=== PATIENT | female | born 1940 | race Caucasian/White ===

== ENCOUNTER 2017-12-02 08:02 | Emergency (ER) | payer OTHER ==
--- OUTSIDE RECORDS SUMMARY | 2017-12-02 08:05 | XMS REPORT | Clinical Summary ---
:1940 Author Organization [facility] Address [address] [place] [address] Care Team Providers Name Role Phone Asked, No Pcp Primary Care Provider Unavailable Allergies No Known Allergies Current Medications Prescription Sig. Disp. Refills Start Date End Date Status sertraline (ZOLOFT) Take 25 mg by 02/10/2017 Active 25 MG tablet mouth 2 (two) times a day. pramipexole (MIRAPEX) Take 1.5 mg by 04/27/2017 Active 1.5 MG tablet mouth daily. pantoprazole Take 40 mg by 03/27/2017 Active (PROTONIX) 40 MG EC mouth daily. tablet levothyroxine Take 75 mcg by Active (SYNTHROID, LEVOXYL) mouth daily. 75 mcg tablet lisinopril Take 10 mg by Active (PRINIVIL,ZESTRIL) 10 mouth daily. mg tablet memantine (NAMENDA) 5 Take 5 mg by 05/03/2017 Active MG tablet mouth daily. diazePAM (VALIUM) 10 Take 10 mg by 04/19/2017 Active MG tablet mouth daily. levothyroxine 04/13/2017 Active (SYNTHROID, LEVOXYL) 88 mcg tablet atorvastatin Take 1 tablet 90 tablet 3 11/30/2017 11/30/2018 Active (LIPITOR) 40 MG (40 mg total) tablet by mouth daily. clopidogrel (PLAVIX) Take 1 tablet 30 tablet 11 11/30/2017 11/30/2018 Active 75 mg tablet (75 mg total) by mouth daily. atorvastatin Take 1 tablet 30 tablet 3 05/18/2017 06/17/2017 (LIPITOR) 40 MG (40 mg total) tablet by mouth nightly for 30 days. aspirin (ECOTRIN) 81 Take 1 tablet 90 tablet 4 05/18/2017 06/17/2017 MG enteric coated (81 mg total) tablet by mouth daily for 30 days. clopidogrel (PLAVIX) Take 1 tablet 90 tablet 3 05/18/2017 06/17/2017 75 mg tablet (75 mg total) by mouth daily for 30 days. minocycline Take 1 capsule 14 capsule 0 05/18/2017 05/25/2017 (MINOCIN,DYNACIN) 100 (100 mg total) MG capsule by mouth every 12 (twelve) hours for 7 days. traMADol (ULTRAM) 50 Take 1 tablet 30 tablet 0 05/18/2017 06/17/2017 mg tablet (50 mg total) by mouth every 6 (six) hours as needed for moderate pain for up to 30 days. Active Problems Problem Noted Date Cardiac pacemaker in situ 06/07/2017 Overview: Increased RV capture threshold today: (concerning for RV lead dislodgement) Bipolar 3.25/ 0.4 Unipolar 3.0/ 0.4 Will obtain CXR today AV delay extended to 300ms to prevent V pace during RDR episodes > 900 rate drop response episodes Bradycardia 05/12/2017 Last Assessment & Plan: S/p dual chamber pacemaker implant (05/17/17) 940 Rate drop episodes that were treated appropriately Hypotension 05/12/2017 NSTEMI (non-ST elevated myocardial infarction) 05/11/2017 Essential hypertension 05/11/2017 Osteoporosis 05/11/2017 Congenital hypothyroidism without goiter 05/11/2017 Anxiety 05/11/2017 Chronic back pain 09/26/2016 Spondylosis of lumbar region without myelopathy or radiculopathy 04/13/2014 GERD (gastroesophageal reflux disease) 11/28/2013 Hypothyroidism 11/28/2013 Restless leg syndrome 11/28/2013 Back pain 11/27/2013 Leg pain, bilateral 11/27/2013 Scoliosis 11/27/2013 Encounters Date Type Specialty Care Team Description 11/30/2017 Orders Only Procedural Cardiology Jose Morris MD 06/11/2017 Office Visit Cardiology Delma Morris Paul Antonio, unspecified type (Primary Dx) 06/11/2017 Orders Only Cardiology Jose Morris MD 06/11/2017 Procedure Pass Procedural Cardiology 06/08/2017 Orders Only Cardiology Casey Willis (Primary Blanca Dx) TREY Hoover 06/07/2017 Hospital Radiology Ziggy Grider Essential Encounter MD Ajay hypertension 06/07/2017 Office Visit Cardiology Chaitanya Donovan, Essential hypertension ( Primary Dx); Maylin Hernandez NP Cardiac pacemaker in situ; Bradycardia 05/21/2017 Procedure Pass Procedural Cardiology 05/17/2017 Procedure Pass Procedural Cardiology 05/17/2017 Surgery Procedural Cardiology Debby Morris ppi generator lselie Magaña dual [54231 (CPT)] 05/15/2017 Procedure Pass Procedural Cardiology 05/15/2017 Surgery Procedural Cardiology Hayden Sousa Cv left heart cath samia Hedrick MD lv gram cors [39868 (CPT)] 05/11/2017 - Hospital Cardiovascular Hayden Sousa Bradycardia (Primary Dx); 05/18/2017 Encounter MD Ryley Hypotension, unspecified hypotension type; NSTEMI (non-ST elevated myocardial infarction) after 12/01/2016 Social History Tobacco Use Types Packs/Day Years Used Date Never Smoker Alcohol Use Drinks/Week oz/Week Comments No Sex Assigned at Date Recorded Not on file Last Filed Vital Signs Vital Sign Reading Time Taken Blood Pressure 188/84 06/11/2017 9:07 AM CDT Pulse 84 06/11/2017 9:07 AM CDT Temperature 36.2 C (97.2 F) 05/18/2017 11:06 AM CDT Respiratory Rate 16 06/07/2017 10:51 AM CDT Oxygen Saturation 97% 05/18/2017 11:06 AM CDT Inhaled Oxygen Concentration - - Weight 57.6 kg (127 lb) 06/11/2017 9:07 AM CDT Height 154.9 cm (5' 1") 06/11/2017 9:07 AM CDT Body Mass Index 24 06/11/2017 9:07 AM CDT Plan of Treatment Health Maintenance Due Date Last Done Comments ZOSTER VACCINE 1999 PNEUMOCOCCAL POLYSACCHARIDE VACCINE AGE 65 AND OVER 2004 PNEUMOCOCCAL-13 2004 INFLUENZA VACCINE 04/10/2017 Implants Implanted Type Area Serials Librarian Device Expiration Model / Identifier Date Serial / Lot Pacemaker Salesperson Burial Needs Dr Fenton 2chmbr W/ Is-1 Uni/Bi Conn Advisa - [id number] - [id number] Cardiac N/A: [employer] 10/07/2018 [id number] / Implanted: Qty: 1 on 05/17/2017 by Jose Morris MD Pacemaker N/A CARDIAC RHYTHM [id number] / Generators DISEASE MGMT [id number] Lead, Pacemaker Atrial And Ventricular 58 Centimeter Capsure Fix Novus System - [id number] - [id number] Cardiac Pacing N/A: [employer]ONIC [facility] 01/18/2019 [id number] / Implanted: Qty: 1 on 05/17/2017 by Jose Morris MD Leads or N/A [employer] [id number] / Electrodes or [id number] Accessories Lead, Pacemaker Bipolar Fix Forming Atrial And Ventricular Steroid Eluting 52 Centimeter Capsure Fix Novus - [id number] - [id number] Cardiac Pacing N/A: [employer] [facility] 02/13/2019 [id number] / Implanted: Qty: 1 on 05/17/2017 by Jose Morris MD Leads or N/A [employer] [id number] / Electrodes or [id number] Accessories Procedures Procedure Name Priority Date/Time Associated Comments Diagnosis CV PACEMAKER DEFIB ILR Routine 06/11/2017 12:00 INTERROGATION AM CDT EP PPI GENERATOR INSERT Routine 05/17/2017 3:06 Results for this DUAL PM CDT procedure are in the results section. CV LEFT HEART CATH LV Routine 05/15/2017 5:52 Results for this GRAM WITH CORS PM CDT procedure are in the results section. GA INSERT NON-TUNNEL CV Routine 05/12/2017 2:34 Bradycardia Results for this CATH AM CDT Hypotension, procedure are in unspecified the results hypotension type section. NSTEMI (non-ST elevated myocardial infarction) ECHOCARDIOGRAM 2D STAT 05/11/2017 8:59 Results for this LIMITED PM CDT procedure are in the results section. after 12/01/2016 Results ECG 12 lead (06/11/2017 9:17 AM)Only the most recent of4 resultswithin the time period is included. Component Value Ref Range Ventricular rate 89 Atrial rate 89 GA interval 218 QRSD interval 90 QT interval 386 QTC interval 469 P axis 1 46 QRS axis 1 54 T wave axis 6 EKG impression Electronic atrial pacemaker-In automated comparison with ECG of 07-JUN-2017 10:01,-Electronic atrial pacemaker has replaced Electronic ventricular pacemaker- Specimen Performing Laboratory [facility] [address] [place] [address] CV pacemaker defib or ilr interrogation (06/11/2017)XR Chest 2 Vw (06/07/2017 12 :23 PM) Specimen Performing Laboratory [facility] [address] [place] [address] Narrative EXAMINATION:XR CHEST 2 VW CLINICAL HISTORY:I10 Essential (primary) hypertension, s p dual chamber pacemakerevaluate lead placement IMPRESSION: There is a transvenous pacemaker in good position. Heart and mediastinum are normal. Lungs are clear. There is a severe thoracolumbar scoliosis. [id number] Procedure Note Interface, Radiology Results Incoming - 06/07/2017 1:16 PM CDT EXAMINATION: XR CHEST 2 VW CLINICAL HISTORY: I10 Essential (primary) hypertension, s p dual chamber pacemaker evaluate lead placement IMPRESSION: There is a transvenous pacemaker in good position. Heart and mediastinum are normal. Lungs are clear. There is a severe thoracolumbar scoliosis. [id number] XR Chest 1 Vw Portable (05/18/2017 11:10 AM)Only the most recent of2 resultswithin the time period is included. Specimen Per[facility] [address] [place] [address] Narrative EXAMINATION:XR CHEST 1 VW PORTABLE CLINICAL HISTORY:Post device placement COMPARISON:05/12/2017 chest IMPRESSION: Placement left subclavian transvenous pacer device. Pacer leads over the right atrium and right ventricle. Cardiac silhouette top normal size. Mild central vascular prominence. Minimal linear atelectasis right base No pneumothorax. No pleural effusion [id number] Procedure Note Interface, Radiology Results Incoming - 05/18/2017 12:22 PM CDT EXAMINATION: XR CHEST 1 VW PORTABLE CLINICAL HISTORY: Post device placement COMPARISON: 05/12/2017 chest IMPRESSION: Placement left subclavian transvenous pacer device. Pacer leads over the right atrium and right ventricle. Cardiac silhouette top normal size. Mild central vascular prominence. Minimal linear atelectasis right base No pneumothorax. No pleural effusion [id number] Estimated GFR (05/18/2017 5:10 AM)Only the most recent of8 resultswithin the time period is included. Component Value Ref Range GFR Non Af Amer 81 mL/min/1.73 m2 GFR Af Amer >90 mL/min/1.73 m2 Comment: Chronic kidney disease: <60 mL/min/1.73m2 Kidney failure: <15 mL/min/1.73m2 The estimated GFR is calculated from the IDMS-traceable Modification of Diet in Renal Disease Equation. The accuracy of the calculation is poor when the creatinine is normal. Calculated values >90 mL/min/1.73m2 are not reported. This equation has not been validated in children (<18 years), women, the elderly (>70 years), or ethnic groups other than Caucasians and Americans. Specimen Performing Laboratory Plasma specimen [facility] DEPARTMENT OF PATHOLOGY AND GENOMIC MEDICINE [address] [place] [address] Prothrombin time with INR (05/18/2017 5:10 AM)Only the most recent of3 resultswithin the time period is included. Component Value Ref Range Prothrombin time 13.4 12.0 - 15.0 sec INR 1.0 Comment: The International Normalized Ratio (INR) is a therapeutic monitoring tool for patients who are stable on oral anticoagulant therapy. An INR of 2.0-3.0 is suggested for deep vein thrombosis/pulmonary embolism. Specimen Performing Laboratory Blood [facility] DEPARTMENT OF PATHOLOGY AND GENOMIC MEDICINE [address] [place] [address] CBC with platelet and differential (05/18/2017 5:10 AM)Only the most recent of3 resultswithin the time period is included. Component Value Ref Range WBC 9.20 4.50 - 11.00 k/uL RBC 3.70 (L) 4.20 - 5.50 m/uL HGB 10.9 (L) 12.0 - 16.0 g/dL HCT 35.2 (L) 37.0 - 47.0 % MCV 95.1 82.0 - 100.0 fL MCH 29.5 27.0 - 34.0 pg MCHC 31.0 31.0 - 37.0 g/dL RDW - SD 47.7 37.0 - 55.0 fL MPV 9.8 8.8 - 13.2 fL Platelet count 227 150 - 400 k/uL Nucleated RBC 0.00 /100 WBC Neutrophils 64.0 39.0 - 69.0 % Lymphocytes 28.6 25.0 - 45.0 % Monocytes 5.0 0.0 - 10.0 % Eosinophils 1.7 0.0 - 5.0 % Basophils 0.3 0.0 - 1.0 % Immature granulocytes 0.4Comment: "Immature granulocytes" 0.0 - 1.0 % (promyelocytes, myelocytes, metamyelocytes) Specimen Performing Laboratory Blood [facility] DEPARTMENT OF PATHOLOGY AND [facility] [address] [place] [address] Basic metabolic panel (05/18/2017 5:10 AM)Only the most recent of8 resultswithin the time period is included. Component Value Ref Range Sodium 142 135 - 148 mEq/L Potassium 3.9 3.5 - 5.0 mEq/L Chloride 107 98 - 112 mEq/L CO2 22 (L) 24 - 31 mEq/L Anion gap 13 7 - 15 mEq/L Comment: Starting from December , anion gap calculation no longer incorporates potassium. Please note the change. BUN 22 8 - 23 mg/dL Creatinine 0.7 0.5 - 0.9 mg/dL Glucose 115 (H) 65 - 99 mg/dL Calcium 9.0 8.8 - 10.2 mg/dL Specimen Performing Laboratory Plasma specimen [facility] DEPARTMENT OF PATHOLOGY AND [address] [address] Cv electrophysiology procedure (05/17/2017 3:06 PM) Specimen Performing Laboratory [address] [address] Narrative ELECTROPHYSIOLOGY SERVICE OPERATIVE REPORT PROCEDURE: OPERATION PERFORMED: Implantation dual chamber pacemaker Moderate sedation for 80 min ATTENDING SURGEON: Jose Morris MD CCEP FELLOW: None ANESTHESIA: Versed, lidocaine and fentanyl ESTIMATED BLOOD LOSS: < 20 cc COMPLICATIONS: None. TIME OUT: Time out was completed with verification of the correct patient identity, procedure to be performed, procedure site and implanted equipment. INDICATION FOR PROCEDURE:Briefly, the patient is a 77 year old male with a history of Syncope, SSS and documented symptomatic bradycardia.The patient was seen and examined by an electrophysiology staff physician and deemed appropriate for implantation of a permanent pacemaker. PROCEDURE AND FINDINGS:The patient was brought to the electrophysiology laboratory at the [facility].Informed consent was given by the patient prior to the procedure and confirmed.Intravenous prophylactic antibiotics were administered prior to the procedure.After the site of implantation was prepped and drapped in the usual sterile fashion and after adequate anesthesia was given, the skin was infiltrated with 1% lidocaine and 1% bupivicaine 50/50 mixture.The skin was incised with a #10 scalpel.Blunt and electrosurgical dissection was carried out to the level of the prepectoral fascia with careful attention paid to hemostasis.A pocket to house the pulse generator was formed between the prepectoral fascia and subcutaneous fat with blunt and electrosurgical dissection.The pocket was copiously irrigated with antibiotic containing normal saline and subsequently observed.Once adequate hemostasis was confirmed within the pocket, venous access was obtained.The cephalic vein was access with cut down technique.J tip 0.035 inch guide wires were introduced and their course throught the venous system was confirmed by their presence under fluoroscopy in the inferior vena. RIGHT VENTRICULAR LEAD: A7 Martiniquais peel away sheath was brought to the field and placed into the venous system via over the wire technique.The right ventricular lead was placed via this sheath into the right ventricular apical location. Adequate sensing and threshold parameters were obtained.The lead was attached via active fixation.There was no evidence of diaphragmatic stimulation at 10 V output.The peel away sheath was removed and the lead collar was advanced to the pectoral muscle and sutured with ethabond suture.Tug testing of this lead confirmed stability of the lead and the length of the lead's slack was assesed as optimal with fluoroscopy. RIGHT ATRIAL LEAD: A 7 Martiniquais peel away sheath was brought to the field and placed into the venous system via over the wire technique.The right atrial lead was placed via this sheath into the right atrial lateral location.Adequate sensing and threshold parameters were obtained.The lead was attached via activation fixation.There was no evidence of diaphragmatic stimulation at 10 V output.The peel away sheath was removed and the lead collar was advanced to the pectoral muscle and sutured with ethabond suture.Tug testing of this lead confirmed stability of the lead and the length of the lead's slack was assesed as optimal with fluoroscopy. The lead tips for all leads were cleaned and dried thoroughly.The leads were attached to the appropriate ports on the pulse generator.Tug testing was perfomed on all connections.The device and leads were placed within the pocket such that the coiled redundant leads were posterior to the pulse generator. The pulse generator was then sutured to the fascia in a medial location within the pocket using Vycril suture.The pocket was closed with 3 layers of continuous suture using 2 Vicryl, 3 Vicryl and Dermabond. Sterile dressing were applied to the wound followed by a pressure dressing. MEASURED DEVICE DATA: Atrial lead sensin mV impedance: 647 Ohms Threshold: 0.6 Volts at 0.5 ms RV lead sensin.5 mV pacing impedance: 978 Ohms Threshold: 0.5 Volts at 0.5 ms PROGRAMMED PARAMETERS: Mode:DDDR CONCLUSION:Succesful implantation of permanent pacemaker system. RECOMMENDATION: 1. No need for CXR 2. ANTIBIOTICS 3. Wound Check in one week at the [facility]. 4. Compression bandage to be removed in AM by our service.Patient to be instructed not to touch the wound or get wound wet for the period of one week.Patient instructed not to flex, extend, or abduct the shoulder joint ipsilateral to implantation more than 90 degrees for a period of 6 weeks.Movement of the shoulder below this threshold is encouraged. CBC hemogram (05/17/2017 5:15 AM)Only the most recent of5 resultswithin the time period is included. Component Value Ref Range WBC 7.68 4.50 - 11.00 k/uL RBC 3.89 (L) 4.20 - 5.50 m/uL HGB 11.6 (L) 12.0 - 16.0 g/dL HCT 36.6 (L) 37.0 - 47.0 % MCV 94.1 82.0 - 100.0 fL MCH 29.8 27.0 - 34.0 pg MCHC 31.7 31.0 - 37.0 g/dL RDW - SD 46.0 37.0 - 55.0 fL MPV 9.7 8.8 - 13.2 fL Platelet count 243 150 - 400 k/uL Nucleated RBC 0.00 /100 WBC Specimen Performing Laboratory Blood [facility] DEPARTMENT OF PATHOLOGY AND GENOMIC MEDICINE [address] [place] [address] Partial thromboplastin time, activated (05/16/2017 5:00 AM)Only the most recent of10 resultswithin the time period is included. Component Value Ref Range PTT 25.2 23.0 - 36.0 sec Comment: PTT therapeutic range for unfractionated heparin is 61.0-112.0 seconds which corresponds to Anti-Xa 0.3-0.7 U/ml. Specimen Performing Laboratory Blood [facility] DEPARTMENT OF PATHOLOGY AND GENOMIC MEDICINE [address] [place] [address] Thyroid stimulating hormone (05/16/2017 4:00 AM) Component Value Ref Range TSH 1.56 0.27 - 4.20 uIU/mL Specimen Performing Laboratory Plasma specimen [facility] DEPARTMENT OF PATHOLOGY AND [facility] [address] [place] [address] Cv biology laboratory assistant procedure (05/15/2017 5:52 PM) Component Value Ref Range Cath EF Estimated 60 % Specimen Performing Laboratory [facility] [address] [place] [address] Narrative 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 Phosphorus level (05/15/2017 4:50 AM)Only the most recent of5 resultswithin the time period is included. Component Value Ref Range Phosphorus 4.5 2.4 - 4.5 mg/dL Specimen Performing Laboratory Plasma specimen [facility] DEPARTMENT PATHOLOGY [address] [address] Magnesium level (05/15/2017 4:50 AM)Only the most recent of6 resultswithin the time period is included. Component Value Ref Range Magnesium 2.4 1.6 - 2.4 mg/dL Specimen Performing Laboratory Plasma specimen [facility] DEPARTMENT OF PATHOLOGY AND [facility] [address] [place] [address] Ionized calcium (05/15/2017 4:50 AM)Only the most recent of4 resultswithin the time period is included. Component Value Ref Range pH 7.53 Ionized calcium 1.14 1.11 - 1.32 mmol/L Specimen Performing Laboratory Plasma specimen [facility] DEPARTMENT OF PATHOLOGY [address] [address] Potassium level (05/14/2017 12:40 PM) Component Value Ref Range Potassium 3.7 3.5 - 5.0 mEq/L Specimen Performing Laboratory Plasma specimen [facility] DEPARTMENT OF PATHOLOGY AND GENOMIC MEDICINE [address] [place] [address] POC glucose (05/14/2017 12:06 PM)Only the most recent of17 resultswithin the time period is included. Component Value Ref Range POC glucose 107 (H) 65 - 99 mg/dL Comment: [facility] Notified RN Meter ID: [id number] Logistics Manager: Linda Chapman Specimen Performing Laboratory [facility] DEPARTMENT OF PATHOLOGY AND [facility] [address] [place] [address] Troponin (05/13/2017 12:16 AM)Only the most recent of5 resultswithin the time period is included. Component Value Ref Range Troponin <0.30 0.00 - 0.30 ng/mL Comment: 0.30 - 1.49 ng/mlMay indicate increased risk of acute coronary syndrome. >=1.5 ng/mlConsistent with acute myocardial infarction. The diagnostic value of a single normal or non-diagnostic result is questionable.Serial samples at 2-6 hour intervals are required to rule out acute myocardial injury. Specimen Performing Laboratory Plasma specimen [facility] DEPARTMENT OF PATHOLOGY AND GENOMIC MEDICINE [address] [place] [address] Pv duplex venous lower extremity (05/12/2017 7:50 PM) Specimen Performing Laboratory [facility] [address] [place] [address] Narrative Vascular Ultrasound Laboratory Lower Extremity Venous Report [address] [place] [address] Pat.Name:JOAN ABRAMS.ID:[id number] St.Date: 05/12/2017Refer.MD:HAYDEN SOUSA MD Exam Time: 7:32:00 PMStudy Type:LE Venous DOBAge:1940,77YSex: FEMALE Sonogrphr: Savage Mclena RVTPat. Stat.:Inpatient [facility]INDA, CPT - 4: 18330 Echo Event ID:[id number] Order ID:[id number] Reason for Study:NSTEMI History / Clinical:Other,NSTEMI Race: SUMMARY: DUPLEX SCAN OBSERVATIONS Deep VeinsSuperficial Veins RightLeft RightLeft EIV GSV (prox) Not VisualizedNormal CFV Normal Normal (above knee) Femoral Normal Normal GSV (dist) Normal Normal Profunda Normal Normal (below knee) Popliteal Normal Normal PT (prox) Normal NormalSSV Not Visualized Not Visualized PT (dist) Normal Normal Peroneal Normal Normal RIGHT: There is normal compressibility with no evidence of echogenic material noted within the lumen of the visualized veins. Colorflow and Doppler signals are normal. LEFT:There is normal compressibility with no evidence of echogenic material noted within the lumen of the visualized veins. Colorflow and Doppler signals are normal. PRELIMINARY FINDINGS 1.No evidence of deep venous thrombosis in either lower extremity. PHYSICIAN INTERPRETATION Venous examination of the both lower extremities demonstrated no evidence of venous thrombosis in the visualized veins. Signed 05/13/2017 01:44 AM Meño Duenas MD, RPVI Procedure Note Interface, Radiology Results In - 05/13/2017 1:44 AM CDT Vascular Ultrasound Laboratory Lower Extremity Venous Report [address] [place] [address] Pat.Name: JOAN ABRAMS.ID: [id number] St.Date: 05/12/2017 Refer.MD: HAYDEN SOUSA MD Exam Time: 7:32:00 PM Study Type:LE Venous Age: 8 1940,77Y Sex: FEMALE Sonogrphr: Savage Mclean RVT Pat. Stat.:Inpatient Room: [address] Vol: CN, CPT - 4: 958[address] Echo Event ID:[id number] Order ID: [id number] Reason for Study:NSTEMI History / Clinical:Other, NSTEMI Race: SUMMARY: DUPLEX SCAN OBSERVATIONS Deep Veins Superficial Veins Right Left Right Left EIV GSV (prox) Not Visualized Normal CFV Normal Normal (above knee) Femoral Normal Normal GSV (dist) Normal Normal Profunda Normal Normal (below knee) Popliteal Normal Normal PT (prox) Normal Normal SSV Not Visualized Not Visualized PT (dist) Normal Normal Peroneal Normal Normal RIGHT: There is normal compressibility with no evidence of echogenic material noted within the lumen of the visualized veins. Colorflow and Doppler signals are normal. LEFT: There is normal compressibility with no evidence of echogenic material noted within the lumen of the visualized veins. Colorflow and Doppler signals are normal. PRELIMINARY FINDINGS 1. No evidence of deep venous thrombosis in either lower extremity. PHYSICIAN INTERPRETATION Venous examination of the both lower extremities demonstrated no evidence of venous thrombosis in the visualized veins. Signed 05/13/2017 01:44 AM Meño Duenas MD, RPVI Anti Xa, low molecular weight (05/12/2017 12:51 PM) Component Value Ref Range Heparin name Lovenox Anti Xa, low molecular weight 0.92 0.60 - 1.00 U/mL Comment: Specimen must be drawn at least 4 hours post dose following a minimum of 3 doses. Therapeutic Range:0.60 - 1.00 U/mL Specimen Performing Laboratory Blood [facility] DEPARTMENT OF PATHOLOGY AND GENOMIC MEDICINE [address] [place] [address] CENTRAL LINE (05/12/2017 2:34 AM) Narrative LILIA Menjivar 05/12/20172:34 AM Central Line Insertion Performed by: BIJAN VOGT Authorized by: BIJAN VOGT Consent: Consent obtained:Verbal and emergent situation Consent given by:Patient and parent Risks discussed:Arterial puncture, incorrect placement, bleeding and infection Alternatives discussed:Delayed treatment and referral [place] protocol: Procedure explained and questions answered to patient or proxy's satisfaction: yes Relevant documents present and verified: yes Test results available and properly labeled: yes Imaging studies available: yes Required blood products, implants, devices, and special equipment available: yes Site/side marked: yes Immediately prior to procedure, a time out was called: yes Patient identity confirmed:Arm band Pre-procedure details: Hand hygiene: Hand hygiene performed prior to insertion Sterile barrier technique: All elements of maximal sterile technique followed Skin preparation:2% chlorhexidine and ChloraPrep Skin preparation agent: Skin preparation agent completely dried prior to procedure Anesthesia (see MAR for exact dosages): Anesthesia method:Local infiltration Local anesthetic:Lidocaine 1% w/o epi Procedure details: Catheter type:Triple lumen Catheter size:5.5 Fr Catheter site: femoral vein Catheter Site Laterality:Right Patient position:Flat Landmarks identified: yes Ultrasound guidance: yes Sterile ultrasound techniques: Sterile gel and sterile probe covers were used Number of attempts:1 Successful placement: yes Post-procedure details: Post-procedure:Line sutured and dressing applied Assessment:Blood return through all ports and free fluid flow Patient tolerance of procedure:Tolerated well, no immediate complications Comments: Triple lumen placed emergently for symptomatic Bradycardia and unresponsiveness needing IV access for dopamine infusion and IV fluid administration Insert arterial line (05/12/2017 2:29 AM) Narrative LILIA Menjivar 05/12/20172:29 AM Arterial Line Insertion Date/Time: 05/12/2017 2:25 AM Performed by: BIJAN VOGT Authorized by: BIJAN VOGT Consent: Consent obtained:Verbal Consent given by:Patient Risks discussed:Ischemia, bleeding, pain and repeat procedure Indications: Indications: hemodynamic monitoring and multiple ABGs Pre-procedure details: Skin preparation:2% Chlorhexidine Preparation: Patient was prepped and draped in sterile fashion Anesthesia (see MAR for exact dosages): Anesthesia method:Local infiltration Local anesthetic:Lidocaine 1% w/o epi Procedure details: Location:R femoral Kailash's test performed: no Needle gauge:20 G Placement technique:Ultrasound guided Number of attempts:1 Transducer: waveform confirmed Post-procedure details: Post-procedure:Sutured and sterile dressing applied CMS:Unchanged Patient tolerance of procedure:Tolerated well, no immediate complications Comments: A-line placed emergently after patient went Bradycardic, Hypotensive and Unresponsive Pv carotid duplex (05/11/2017 9:23 PM) Specimen Performing Laboratory [facility] [address] Vascular Ultrasound Laboratory Carotid Artery Duplex Report [address] [place] [address] For quality rep purposes, the categorization of the degree of the stenosis of this exam is based on criteria described in the IAC carotid stenosis grading white paper( www.intersocietal.org/Vascular) and Anais Shaikh., Ant Gomez, et al. Carotid artery stenosis: rogers-scale and Doppler US diagnosis--Society of Radiologists in Ultrasound Consensus Conference. Radiology. 2003 Nov; 229(2):340-6. Pat.Name:JOAN ABRAMS Pat.ID:[id number] .Date: 05/11/2017Refer.MD:HAYDEN SOUSA MD Exam Time: 9:00:00 PMStudy Type:Carotid DOBAge:1940,77YSex: FEMALE Sonogrphr: COSTA Shepherd RCS Pat. Stat.:Inpatient Room:[facility] [id number] TapeVol: ACACIA, CPT - 4: 49090 Echo Event ID:[id number] Order ID:[id number] Reason for Study:Evaluate for carotid artery disease. NSTEMI, history of HTN, osteoporosis, hypothyroidism and anxiety. Race:C SUMMARY: PHYSICAL ASSESSMENT BloodPulsesCarotid Pressure Carotid TemporalBruit Right 133/61 ++0 Left ___ ++0 CAROTID ARTERY SCAN RIGHT:There is smooth intimal lining in the common carotid artery. There is calcified plaque noted in the bulb. Colorflow is normal. The internal and external carotid artery is clear. There is antegrade flow noted in the vertebral artery. LEFT:There is smooth intimal lining in the common carotid ,bulb, internal and external carotid artery. Colorflow is normal. There is antegrade flow noted in the vertebral artery. PRELIMINARY FINDINGS 1. <50%stenosis in the bulb and right internal carotid artery. 2. Left carotid artery examination demonstrates no evidence of plaque or occlusive disease. 3. There is antegrade flow noted in the vertebral artery, bilaterally. PHYSICIAN INTERPRETATION Bilateral carotid duplex examination demonstrated atherosclerotic plaques in the right bulb. Less than 50% stenosis in the right internal carotid artery. Left side is normal. Carotid Findings:RightLeft Verteb.Flw AntegradeAntegrade Subclavian Biphasic Biphasic MEASUREMENTS: DOPPLER Right CCA Dist CCA Dist PSV59.9 cm/sCCA Dist EDV7.55 cm/s Right CCA Mid CCA Mid PSV 81.7 cm/sCCA Mid EDV 11.3 cm/s Right CCA Prox CCA Prox PSV 108 cm/sCCA Prox EDV 4.2 cm/s Right ECA ECA PSV 95.2 cm/sECA EDV0 cm/s Right ICA Dist ICA Dist PSV79.5 cm/Delio Dist EDV20.1 cm/s Right ICA Mid ICA Mid PSV 70.7 cm/Delio Mid EDV 20.1 cm/s Right ICA Prox ICA Prox PSV67.4 cm/Delio Prox EDV8.02 cm/s Right Vertebral Vertebral PSV 50.9 cm/sVertebral EDV 12.4 cm/s Right Subclavian Subclavian PSV76.4 cm/sSubclavian EDV 0 cm/s Left CCA Dist CCA Dist PSV62.2 cm/sCCA Dist EDV15.1 cm/s Left CCA Mid CCA Mid PSV 67.7 cm/sCCA Mid EDV 9.45 cm/s Left CCA Prox CCA Prox PSV84.2 cm/sCCA Prox EDV9.45 cm/s Left ECA ECA PSV 72.1 cm/sECA EDV 1.76 cm/s Left ICA Dist ICA Dist PSV65.5 cm/Delio Dist EDV18.2 cm/s Left ICA Mid ICA Mid PSV 74.3 cm/Delio Mid EDV 18.2 cm/s Left ICA Prox ICA Prox PSV62.2 cm/Delio Prox EDV19.3 cm/s Left Vertebral Vertebral PSV 43.1 cm/sVertebral EDV 8.97 cm/s Left Subclavian Subclavian PSV 127 cm/sSubclavian EDV 0 cm/s Right ICA/CCA Ratio ICA/CCA PSV0.825 Left ICA/CCA Ratio ICA/CCA PSV0.919 Signed 05/12/2017 04:27 AM Meño Duenas MD, RPVI Procedure Note Interface, Radiology Results In - 05/12/2017 4:28 AM CDT Vascular Ultrasound Laboratory Carotid Artery Duplex Report [address] [place] [address] For quality rep purposes, the categorization of the degree of the stenosis of this exam is based on criteria described in the IAC carotid stenosis grading white paper( www.intersocietal.org/Vascular) and Anais Shaikh., Jason CDevikaB., et al. Carotid artery stenosis: rogers-scale and Doppler US diagnosis--Society of Radiologists in Ultrasound Consensus Conference. Radiology. 2003 Nov; 229(2):340-6. Pat.Name: JOAN ABRAMS.ID: [id number] .Date: 05/11/2017 Refer.MD: HAYDEN SOUSA MD Exam Time: 9:00:00 PM Study Type:Carotid Age: 8 1940,77Y Sex: FEMALE Sonogrphr: Saul Sanchez, COSTA, CHRIS Pat. Stat.:Inpatient Room: [facility] [id number] Tape Vol: ACACIA, [facility] - 4: 63772 Echo Event ID:[id number] Order ID: [id number] Reason for Study:Evaluate for carotid artery disease. NSTEMI, history of HTN, osteoporosis, hypothyroidism and anxiety. Race: C SUMMARY: PHYSICAL ASSESSMENT Blood Pulses Carotid Pressure Carotid Temporal Bruit Right 133/61 + + 0 Left ___ + + 0 CAROTID ARTERY SCAN RIGHT: There is smooth intimal lining in the common carotid artery. There is calcified plaque noted in the bulb. Colorflow is normal. The internal and external carotid artery is clear. There is antegrade flow noted in the vertebral artery. LEFT: There is smooth intimal lining in the common carotid ,bulb, internal and external carotid artery. Colorflow is normal. There is antegrade flow noted in the vertebral artery. PRELIMINARY FINDINGS 1. <50% stenosis in the bulb and right internal carotid artery. 2. Left carotid artery examination demonstrates no evidence of plaque or occlusive disease. 3. There is antegrade flow noted in the vertebral artery, bilaterally. PHYSICIAN INTERPRETATION Bilateral carotid duplex examination demonstrated atherosclerotic plaques in the right bulb. Less than 50% stenosis in the right internal carotid artery. Left side is normal. Carotid Findings: Right Left Verteb.Flw Antegrade Antegrade Subclavian Biphasic Biphasic MEASUREMENTS: DOPPLER Right CCA Dist CCA Dist PSV 59.9 cm/s CCA Dist EDV 7.55 cm/s Right CCA Mid CCA Mid PSV 81.7 cm/s CCA Mid EDV 11.3 cm/s Right CCA Prox CCA Prox PSV 108 cm/s CCA Prox EDV 4.2 cm/s Right ECA ECA PSV 95.2 cm/s ECA EDV 0 cm/s Right ICA Dist ICA Dist PSV 79.5 cm/s ICA Dist EDV 20.1 cm/s Right ICA Mid ICA Mid PSV 70.7 cm/s ICA Mid EDV 20.1 cm/s Right ICA Prox ICA Prox PSV 67.4 cm/s ICA Prox EDV 8.02 cm/s Right Vertebral Vertebral PSV 50.9 cm/s Vertebral EDV 12.4 cm/s Right Subclavian Subclavian PSV 76.4 cm/s Subclavian EDV 0 cm/s Left CCA Dist CCA Dist PSV 62.2 cm/s CCA Dist EDV 15.1 cm/s Left CCA Mid CCA Mid PSV 67.7 cm/s CCA Mid EDV 9.45 cm/s Left CCA Prox CCA Prox PSV 84.2 cm/s CCA Prox EDV 9.45 cm/s Left ECA ECA PSV 72.1 cm/s ECA EDV 1.76 cm/s Left ICA Dist ICA Dist PSV 65.5 cm/s ICA Dist EDV 18.2 cm/s Left ICA Mid ICA Mid PSV 74.3 cm/s ICA Mid EDV 18.2 cm/s Left ICA Prox ICA Prox PSV 62.2 cm/s ICA Prox EDV 19.3 cm/s Left Vertebral Vertebral PSV 43.1 cm/s Vertebral EDV 8.97 cm/s Left Subclavian Subclavian PSV 127 cm/s Subclavian EDV 0 cm/s Right ICA/CCA Ratio ICA/CCA PSV 0.825 Left ICA/CCA Ratio ICA/CCA PSV 0.919 Signed 05/12/2017 04:27 AM Meño Duenas MD, RPVI Echocardiogram 2d limited (05/11/2017 8:59 PM) Specimen Performing Laboratory [facility] [address] [place] [address] Narrative Echocardiography Report [address]Name:JOAN ABRAMS Pat.ID:[id number] .Date: 05/11/2017Refer.MD:HAYDEN SOUSA MD Exam Time: 8:38:00 PMStudy Type:Routine Echo Height:60inWeight:121lb BSA: 1.51 m2 DOBAge:1940,77Y Sex: FEMALEBP:114/59 HR:57 bpmSonogrphr: Marlee Perez, RCS, RVS Pat. Stat.:Inpatient Room:[place] [address] CPT - 4: 68408, [id number] Status:Final Echo Event ID:[id number] Order ID:[id number] Reason for Study:Myocardial Ischemia/Infarction - Eval of a patient without chest pain but with other features of an ischemic equivalent or laboratory markers indicative of ongoing NM. Procedures:2D Echo, Colorflow Doppler, Strain, Portable Race:C FINDINGS: LV: LV size is normal. There is mild concentric LV hypertrophy. LVglobal systolic function is normal. Difficult to assess segmentalfunction. Basal and mid segments are hyperdynamic.Newberg is not well visualized and cannot excludeapical pathology.Estimated EF is 65-69% RV: RV size is normal. RV systolic function is normal. LA: LA volume is difficult to assess. RA: RA size is normal. AO: Aortic root diameter is upper limits of normal in size. SASCHA: No pericardial effusion. AV: No structural AV abnormalities noted. MV: Mild mitral annular calcification. There is Valvular systolicanterior motion of the mitral valve. Mild mitral regurgitation. PV: Pulmonic valve not well seen. TV: No structural TV abnormalities noted. Mild tricuspid regurgitation LVOT: Left ventricular outflow tract dynamic obstruction. Estimatedmaximal gradient is 19-26 mmHg. Adam: Diastolic dysfunction Grade I (Mild): Impaired relaxation withnormal LV filling pressures. Other:Estimated PA systolic pressure is 26 mmHg, assuming a mean RAPof 5 mmHg. MEASUREMENTS: 2D Parasternal [place] LVIDd3.9 cmIndex 2.6 cm/m Ao Rtd 2.8 cm Index1.9 cm/m LVIDs2.6 cmLV Ekpe619.3 g(87-129) LV%fs 33.3 % LVM Index 105.5 g/m2 IVSd 1.2 cmRWT0.6 LVPWd1.2 cm Signed 05/12/2017 08:40 PM Germain Aranda M.D. Procedure Note Interface, Radiology Results In - 05/12/2017 8:40 PM CDT Echocardiography Report [address] [place] [address] Pat.Name: JOAN ABRAMS.ID: [id number] St.Date: 05/11/2017 Refer.MD: HAYDEN SOUSA MD Exam Time: 8:38:00 PM Study Type:Routine Echo Height: 60in Weight: 121lb BSA: 1.51 m2 Age: 8 1940,77Y Sex: FEMALE BP: 114/59 HR: 57 bpm Sonogrphr: CHRIS Santana, COSTA Pat. Stat.:Inpatient Room: [place] [address] CPT - 4: 24539, 04509 Study Status:Final Echo Event ID:[id number] Order ID: [id number] Reason for Study:Myocardial Ischemia/Infarction - Eval of a patient without chest pain but with other features of an ischemic equivalent or laboratory markers indicative of ongoing NM. Procedures:2D Echo, Colorflow Doppler, Strain, Portable Race: C FINDINGS: LV: LV size is normal. There is mild concentric LV hypertrophy. LV global systolic function is normal. Difficult to assess segmental function. Basal and mid segments are hyperdynamic. Newberg is not well visualized and cannot exclude apical pathology. Estimated EF is 65-69% RV: RV size is normal. RV systolic function is normal. LA: LA volume is difficult to assess. RA: RA size is normal. AO: Aortic root diameter is upper limits of normal in size. SASCHA: No pericardial effusion. AV: No structural AV abnormalities noted. MV: Mild mitral annular calcification. There is Valvular systolic anterior motion of the mitral valve. Mild mitral regurgitation. PV: Pulmonic valve not well seen. TV: No structural TV abnormalities noted. Mild tricuspid regurgitation LVOT: Left ventricular outflow tract dynamic obstruction. Estimated maximal gradient is 19-26 mmHg. Adam: Diastolic dysfunction Grade I (Mild): Impaired relaxation with normal LV filling pressures. Other: Estimated PA systolic pressure is 26 mmHg, assuming a mean RAP of 5 mmHg. MEASUREMENTS: 2D Parasternal [place] LVIDd 3.9 cm Index 2.6 cm/m Ao Rtd 2.8 cm Index 1.9 cm/m LVIDs 2.6 cm LV Mass 159.3 g (87-129) LV%fs 33.3 % LVM Index 105.5 g/m2 IVSd 1.2 cm RWT 0.6 LVPWd 1.2 cm Signed 05/12/2017 08:40 PM Germain Aranda M.D. Type and screen (05/11/2017 8:00 PM) Component Value Ref Range ABO grouping A Rh type POS Antibody screen (gel) NEG Specimen Performing Laboratory Blood [facility] DEPARTMENT OF PATHOLOGY AND GENOMIC MEDICINE [address] [place] [address] B natriuretic peptide (05/11/2017 8:00 PM) Component Value Ref Range BNP 58 0 - 100 pg/mL Specimen Performing Laboratory Blood [facility] DEPARTMENT OF PATHOLOGY AND GENOMIC MEDICINE [address] [place] [id number] after 12/01/2016 Insurance Payer Benefit Plan / Group Subscriber ID Type Phone Address [employer] MED[employer]ARE A[employer]NA MEDICARE HMO/PPO [facility] xxxxxxxx HMO [phone] [place] [address]
[2017-12-02 08:32] LABS: Absolute Lymphocytes (CBC) 7.1 K/uL (0.7-4.9); Absolute Monocytes 0.8 K/uL (0.1-1.3); Absolute Neutrophil 6.2 K/uL (1.8-8.0); Basophils % 0.4 % (0-1.3); Eosinophils % 1.5 % (0-4.4); Hematocrit 41.8 % (36.0-45.0); Lymphocytes % 49.6 % (15.3-44.8); MCH 29.2 pg (27.0-35.0); MCV 89.7 fL (80-100); MPV 8.1 fL (7.6-11.3); Monocytes % 5.3 % (3.3-12.3); RBC Red Blood Cell Count 4.65 M/uL (3.86-4.86)
[2017-12-02 08:33] LABS: Protime INR 0.89
[2017-12-02 08:47] LABS: Magnesium 2.3 mg/dL (1.8-2.5); Potassium 4.1 mEq/L (3.6-5.0)
--- NOTE | 2017-12-02 09:03 | RAD REPORT ---
EXAM DESCRIPTION: RAD - Chest Single View - 12/02/2017 8:22 am CLINICAL HISTORY: Chest pain COMPARISON: May 2017 TECHNIQUE: AP portable chest image was obtained 0811 hours . FINDINGS: No infiltrate, mass or pulmonary edema pattern. Heart and vasculature are normal. No measu rable pleural effusion and no pneumothorax. No gross bony abnormality seen. No acute aortic finding. Left subclavian pacemaker has been placed since the comparison study. Resuscitation paddles overlie t he upper right and lower left chest. IMPRESSION: No acute cardiopulmonary process. Pacemaker has been placed since the May 2017 comparison.
--- NOTE | 2017-12-02 10:01 | EDPHYS ---
Physician Documentation [facility] Name: Joan Cohn Age: 77 yrs Sex: Female : 1940 Arrival Date: 12/02/2017 Time: 08:04 Bed 3 Private MD: ED Physician Gallo Figueroa HPI: 12/02 08:36 This 77 yrs old Female presents to ER via EMS with complaints of Chest Pain. 08:36 The patient or guardian reports chest pain that is located primarily in the substernal gs area, anterior chest wall. Onset: acutely, this morning. Associated signs and symptoms: Pertinent positives: shortness of breath. The chest pain is described as a heaviness. Duration: The patient or guardian reports multiple episodes, that are intermittent, that wax and wane. Modifying factors: The symptoms are alleviated by nothing. the symptoms are aggravated by nothing. Severity of pain: At its worst the pain was severe in the emergency department the pain has improved markedly. The patient has experienced similar episodes in the past, a few times. Historical: - Allergies: 08:17 No Known Allergies; sv 08:19 No Known Allergies; hb - Home Meds: 08:19 baclofen 10 mg Oral tab 1 tab 3 times per day [Active]; clonazepam 0.5 mg Oral tab 1 hb tab 2 times per day [Active]; cranberry Oral [Active]; diclofenac potassium 50 mg Oral tab 1 tab 3 times per day [Active]; donepezil 5 mg Oral tab 1 tab once daily [Active]; gabapentin 300 mg Oral cap 1 cap nightly [Active]; levothyroxine 75 mcg tab 1 tab once daily [Active]; lisinopril 10 mg Oral tab 1 tab once daily [Active]; lorazepam 0.5 mg Oral tab [Active]; memantine 5 mg Oral tab 1 tabs BID [Active]; Mirapex 1.5 mg Oral tab [Active]; pantoprazole 40 mg Oral TbEC 1 tab once daily [Active]; pramipexole 0.5 mg Oral tab 1 tab [Active]; pramipexole 1.5 mg Oral Tb24 1 tab once daily [Active]; sertraline 25 mg Oral tab 1 tab once daily [Active]; sertraline 25 mg Oral tab 1 tab once daily [Active]; Vitamin D Oral 2000 unit [Active]; Women's One Daily 18 mg iron-400 mcg-500 mg Ca Oral tab [Active]; 08:37 atorvastatin 75 mg oral tab 1 tab once daily [Active]; hb - PMHx: 08:17 Anxiety; Dementia; GERD; Hypertension; Hypothyroidism; scoliosis; sv 08:19 Anxiety; Dementia; GERD; Hypertension; Hypothyroidism; scoliosis; hb - PSHx: 08:17 Hysterectomy; sv 08:19 Hysterectomy; hb - Immunization history:: Adult Immunizations up to date. - Social history:: Smoking status: Patient/guardian denies using tobacco. ROS: 08:36 All other systems are negative. gs Exam: 08:36 Head/Face: Normocephalic, atraumatic. Eyes: Pupils equal round and reactive to light, gs extra-ocular motions intact. Lids and lashes normal. Conjunctiva and sclera are non-icteric and not injected. Cornea within normal limits. Periorbital areas with no swelling, redness, or edema. ENT: Nares patent. No nasal discharge, no septal abnormalities noted. Tympanic membranes are normal and external auditory canals are clear. Oropharynx with no redness, swelling, or masses, exudates, or evidence of obstruction, uvula midline. Mucous membranes moist. Neck: Trachea midline, no thyromegaly or masses palpated, and no cervical lymphadenopathy. Supple, full range of motion without nuchal rigidity, or vertebral point tenderness. No Meningismus. Chest/axilla: Normal chest wall appearance and motion. Nontender with no deformity. No lesions are appreciated. 08:36 Constitutional: The patient appears alert, awake, in obvious distress, severely distressed. 08:36 Cardiovascular: Rate: normal, Rhythm: regular, Pulses: no pulse deficits are appreciated. 08:36 ECG was reviewed by the Attending Physician. 08:48 Abdomen/GI: Soft, non-tender, with normal bowel sounds. No distension or tympany. No gs guarding or rebound. No evidence of tenderness throughout. Back: No spinal tenderness. No costovertebral tenderness. Full range of motion. Skin: Warm, dry with normal turgor. Normal color with no rashes, no lesions, and no evidence of cellulitis. MS/ Extremity: Pulses equal, no cyanosis. Neurovascular intact. Full, normal range of motion. Neuro: Awake and alert, GCS 15, oriented to person, place, time, and situation. Cranial nerves II-XII grossly intact. Motor strength 5/5 in all extremities. Sensory grossly intact. Cerebellar exam normal. Normal gait. 08:48 Respiratory: moderate respiratory distress is noted, Respirations: labored breathing, Breath sounds: decreased breath sounds, that are mild. Vital Signs: 08:02 BP 157 / 82; Pulse 77; Resp 24; Temp 98.2; Pulse Ox 100% ; Pain 0/10; sv 08:22 BP 118 / 66; Pulse 94; Resp 12; Pulse Ox 100% on 30% BiPAP; hb 09:24 BP 125 / 72; Pulse 81; Resp 19; Pulse Ox 98% on 30% BiPAP; sv 10:30 BP 163 / 78; Pulse 72; Resp 21; Pulse Ox 100% ; sv 11:05 BP 146 / 61; Pulse 89; Resp 19; Pulse Ox 100% on 2 lpm NC; hb 11:51 BP 146 / 80; Pulse 66; Resp 15; Pulse Ox 100% on 2 lpm NC; sv 13:30 Pulse 90; Resp 18; Pulse Ox 100% on 2 lpm NC; sv 13:58 BP 166 / 94; Pulse 80; Resp 17; Pulse Ox 100% on 2 lpm NC; sv 15:22 BP 136 / 51; Pulse 89; Resp 18; Pulse Ox 95% on R/A; sv MDM: 08:14 Patient medically screened. gs 08:48 Differential diagnosis: abnormal EKG, acute myocardial infarction, coronary artery gs disease congestive heart failure. Data reviewed: vital signs. 09:53 Response to treatment: the patient's symptoms have markedly improved after treatment, gs the patient's symptoms have resolved after treatment, and as a result, I will admit patient. 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 14:28 ED course: pt stable off bipap bp normalized dr david wants pt discharged, spoke to dr alva phillips who spoke to dr junior. says no change in pacemaker, no stenoses on recent heart cath. will discharge.. 12/02 08:05 Order name: Basic Metabolic Panel 12/02 08:05 Order name: BNP 12/02 08:05 Order name: CBC with Diff 12/02 08:05 Order name: Magnesium 12/02 08:05 Order name: PT-INR 12/02 08:05 Order name: Troponin (emerg Dept Use Only) 12/02 08:33 Order name: CBC with Automated Diff; Complete Time: 09:04 EDMS 12/02 08:34 Order name: Protime (+INR); Complete Time: 09:04 EDMS 12/02 08:47 Order name: Basic Metabolic Panel; Complete Time: 09:04 EDMS 12/02 08:48 Order name: Magnesium; Complete Time: 09:04 EDMS 12/02 08:50 Order name: Troponin (Emerg Dept Use Only); Complete Time: 09:04 EDMS 12/02 09:03 Order name: BNP B-Type Natriuretic Peptide; Complete Time: 09:04 EDMS 12/02 12:19 Order name: Glucose, Ancillary Testing; Complete Time: 12:38 EDMS 12/02 12:29 Order name: Troponin I; Complete Time: 12:38 EDMS 12/02 08:05 Order name: XRAY Chest (1 view) 12/02 08:05 Order name: EKG; Complete Time: 08:06 12/02 08:05 Order name: Cardiac monitoring; Complete Time: 08:19 12/02 08:05 Order name: EKG - Nurse/Tech; Complete Time: 08:19 12/02 08:05 Order name: IV Saline Lock; Complete Time: 08:19 12/02 08:05 Order name: Labs collected and sent; Complete Time: 08:19 12/02 08:05 Order name: O2 Per Protocol; Complete Time: 08:19 12/02 08:05 Order name: O2 Sat Monitoring; Complete Time: 08:20 12/02 08:05 Order name: Urine Dipstick-Ancillary (obtain specimen); Complete Time: 14:09 12/02 08:05 Order name: BIPAP 12/02 09:04 Order name: RAD; Complete Time: 09:04 EDMS 12/02 12:32 Order name: CKMB Creatine Kinase MB; Complete Time: 12:38 EDMS 12/02 13:18 Order name: Urine Dipstick--Ancillary (enter results) 12/02 13:45 Order name: Urine Dipstick-Ancillary; Complete Time: 14:27 EDMS 12/02 14:09 Order name: Diet Regular; Complete Time: 14:09 hb EC:48 Rate is 77 beats/min. Rhythm is regular. DE interval is normal. QRS interval is normal. gs T waves are Normal. No ST changes noted. Clinical impression: NSR w/ Non-specific ST/T Changes and Abnormal EKG without significant change. Interpreted by me. Administered Medications: No medications were administered Disposition: 12/02/17 14:31 Discharged to Home. Impression: Chest pain, unspecified, Encounter for checking and testing of cardiac pacemaker pulse generator [battery]. - Condition is Stable. - Discharge Instructions: Nonspecific Chest Pain. - Medication Reconciliation Form, Thank You Letter, Antibiotic Education, Prescription Opioid Use form. - Follow up: Private Physician; When: 1 - 2 days; Reason: Re-evaluation by your physician. - Notes: Please f/u with Cardiology in 1 to 2 days post discharge Please f/u with PCP in 1 to 2 days post discharge You were seen in the ED for atypical chest pain and were discharged after Normal EKG and Troponin x 2 negative. You also had your pacemaker interogated here in the hospital which was functional. You will need to f/u with Cardiology to get outpt workup. You had stress test done here in april 2017 which was negative for ischemia and ECHO which was normal with normal EF. You were provided with the results of this and asked to f/u with cardiology. Signatures: Dispatcher [employer] EDMS Stacy Dillon Stephanie, RN RN Alissa Castro RN RN Gallo Figueroa MD MD Jaimee David MD MD [id number]
--- NOTE | 2017-12-02 10:01 | ER ---
Nurse's Notes [facility] Name: Joan Cohn Age: 77 yrs Sex: Female : 1940 Arrival Date: 12/02/2017 Time: 08:04 Bed 3 Private MD: Diagnosis: Chest pain, unspecified;Encounter for checking and testing of cardiac pacemaker pulse generator [battery] Presentation: 12/02 07:57 Presenting complaint: Presenting complaint: EMS states: chest pain that started this sv morning. On EMS arrival pt was clammy and pale. Rales to RLL. Pt's sats went down to the 80s and EMS was assisting with ventilations up until pt was here to the hospital. Pt is pursed lip breathing here on arrival. Nitro x 2, ASA x 6 given by the daughter, Fentanyl 100 mcg IVP given by EMS. BS -137. 08:12 Transition of care: patient was not received from another setting of care. Onset of sv symptoms was December 02, 2017 at 06:00. Care prior to arrival: IV initiated. 20 GA, in the left antecubital area, Glucose check: 137. 08:12 Method Of Arrival: EMS: [facility] sv 08:12 Acuity: MIGUEL 2 sv Triage Assessment: 08:17 General: Appears uncomfortable, slender, Behavior is cooperative, anxious. Pain: Denies sv pain. EENT: No signs and/or symptoms were reported regarding the EENT system. Neuro: Level of Consciousness is awake, alert, obeys commands, Oriented to person, place, situation, Moves all extremities. Full function Speech is normal. Cardiovascular: Heart tones S1 S2 present Patient's skin is warm and dry. Respiratory: Respiratory effort is labored, pursed lip, Respiratory pattern is regular, symmetrical, Denies shortness of breath. Derm: Skin is pale. Musculoskeletal: Range of motion: intact in all extremities. Historical: - Allergies: 08:17 No Known Allergies; sv 08:19 No Known Allergies; hb - Home Meds: 08:19 baclofen 10 mg Oral tab 1 tab 3 times per day [Active]; clonazepam 0.5 mg Oral tab 1 hb tab 2 times per day [Active]; cranberry Oral [Active]; diclofenac potassium 50 mg Oral tab 1 tab 3 times per day [Active]; donepezil 5 mg Oral tab 1 tab once daily [Active]; gabapentin 300 mg Oral cap 1 cap nightly [Active]; levothyroxine 75 mcg tab 1 tab once daily [Active]; lisinopril 10 mg Oral tab 1 tab once daily [Active]; lorazepam 0.5 mg Oral tab [Active]; memantine 5 mg Oral tab 1 tabs BID [Active]; Mirapex 1.5 mg Oral tab [Active]; pantoprazole 40 mg Oral TbEC 1 tab once daily [Active]; pramipexole 0.5 mg Oral tab 1 tab [Active]; pramipexole 1.5 mg Oral Tb24 1 tab once daily [Active]; sertraline 25 mg Oral tab 1 tab once daily [Active]; sertraline 25 mg Oral tab 1 tab once daily [Active]; Vitamin D Oral 2000 unit [Active]; Women's One Daily 18 mg iron-400 mcg-500 mg Ca Oral tab [Active]; 08:37 atorvastatin 75 mg oral tab 1 tab once daily [Active]; hb - PMHx: 08:17 Anxiety; Dementia; GERD; Hypertension; Hypothyroidism; scoliosis; sv 08:19 Anxiety; Dementia; GERD; Hypertension; Hypothyroidism; scoliosis; hb - PSHx: 08:17 Hysterectomy; sv 08:19 Hysterectomy; hb - Immunization history:: Adult Immunizations up to date. - Social history:: Smoking status: Patient/guardian denies using tobacco. Screenin:21 Abuse screen: Denies threats or abuse. Denies injuries from another. Nutritional sv screening: No deficits noted. Tuberculosis screening: No symptoms or risk factors identified. Fall Risk None identified. Assessment: 08:05 Reassessment: BIPAP 12/6, R12, 30% FIO2. hb 08:24 Reassessment: See triage assessment. sv 08:37 Reassessment: Updated family we are waiting on lab results and chest xray to be done. sv Family remains at the bedside. 09:50 Reassessment: Patient appears in no apparent distress at this time. Patient and/or sv family updated on plan of care and expected duration. Pain level reassessed. Patient is alert, oriented x 3, equal unlabored respirations, skin warm/dry/pink. Patient states symptoms have improved. 11:51 Reassessment: Patient appears in no apparent distress at this time. Patient and/or sv family updated on plan of care and expected duration. Pain level reassessed. Patient is alert, oriented x 3, equal unlabored respirations, skin warm/dry/pink. Family at the bedside. Patient states feeling better. Patient states symptoms have improved. 12:00 Reassessment: Dr Encarnacion at the bedside. sv 12:20 Reassessment: Pacemaker interrogated by [facility] ny. Dr Encarnacion wanted it interrogated.sv 13:10 Reassessment: Patient appears in no apparent distress at this time. Patient and/or sv family updated on plan of care and expected duration. Pain level reassessed. Patient is alert, oriented x 3, equal unlabored respirations, skin warm/dry/pink. Dr Encarnacion to speak with Dr Figueroa regarding results from [employer]. Dr Encarnacion would like to transfer the pt. Vital Signs: 08:02 BP 157 / 82; Pulse 77; Resp 24; Temp 98.2; Pulse Ox 100% ; Pain 0/10; sv 08:22 BP 118 / 66; Pulse 94; Resp 12; Pulse Ox 100% on 30% BiPAP; hb 09:24 BP 125 / 72; Pulse 81; Resp 19; Pulse Ox 98% on 30% BiPAP; sv 10:30 BP 163 / 78; Pulse 72; Resp 21; Pulse Ox 100% ; sv 11:05 BP 146 / 61; Pulse 89; Resp 19; Pulse Ox 100% on 2 lpm NC; hb 11:51 BP 146 / 80; Pulse 66; Resp 15; Pulse Ox 100% on 2 lpm NC; sv 13:30 Pulse 90; Resp 18; Pulse Ox 100% on 2 lpm NC; sv 13:58 BP 166 / 94; Pulse 80; Resp 17; Pulse Ox 100% on 2 lpm NC; sv 15:22 BP 136 / 51; Pulse 89; Resp 18; Pulse Ox 95% on R/A; sv ED Course: 07:57 Maintain EMS IV. Dressing intact. Good blood return noted. Site clean \T\ dry. Gauge \T\ sv site: 20G L AC. 08:00 monitoring specialist on. Pulse ox on. NIBP on. Door closed. Warm blanket given. Head of bed sv elevated. 08:04 Patient arrived in ED. sv 08:04 Chen Miranda RN is Primary Nurse. sv 08:05 Gallo Figueroa MD is Attending Physician. gs 08:05 Initial lab(s) drawn, by ED staff, sent to lab. Inserted saline lock: 18 gauge in right sv antecubital area, using aseptic technique. Blood collected. 08:16 Triage completed. sv 08:18 X-ray completed. Portable x-ray completed in exam room. Patient tolerated procedure kp1 well. 08:19 Arm band placed on right wrist. sv 08:19 Arm band placed on left wrist. hb 08:21 Patient has correct armband on for positive identification. Placed in gown. Bed in low sv position. Call light in reach. Side rails up X2. Adult w/ patient. 08:24 O2 via Pt currently on BIPAP. sv 08:25 BIPAP Sent. sv 08:25 Basic Metabolic Panel Sent. sv 08:25 BNP Sent. sv 08:25 CBC with Diff Sent. sv 08:25 Magnesium Sent. sv 08:25 PT-INR Sent. sv 08:25 Troponin (emerg Dept Use Only) Sent. sv 09:23 XRAY Chest (1 view) Sent. sv 10:00 Jaimee Encarnacion MD is Hospitalizing Provider. gs 11:46 No provider procedures requiring assistance completed. Patient admitted, IV remains in hb place. 12:58 Jaimee Encarnacion MD claim administrator. rp3 14:09 Urine Dipstick--Ancillary (enter results) Sent. hb Administered Medications: No medications were administered Outcome: 10:01 Decision to Hospitalize by Provider. gs 11:46 Admitted to Med/surg accompanied by tech, family with patient, via wheelchair, room hb 218, with chart, Report called to Myriam 11:46 Condition: stable 11:46 Instructed on the need for admit, Demonstrated understanding of instructions. 12:32 Discharge ordered by MD. rp3 13:48 ER care complete, transfer ordered by MD. gs 14:31 Discharge ordered by MD. gs 15:32 Patient left the ED. Signatures: Chen Miranda RN RN Afua Rosario Heather, RN RN Kendra Stephen 1 Gallo Figueroa MD MD gs Patel, Ruchita, MD MD rp3 Corrections: (The following items were deleted from the chart) 08:16 07:57 Presenting complaint: sv sv 08:19 08:02 BP 157 / 82; Pulse 77bpm; Resp 17bpm; Pulse Ox 100% 02 100% BVM; Temp 98.2F; Pain sv 0/10; hb 11:45 11:05 BP 146 / 61; Pulse 89bpm; Resp 19bpm; Pulse Ox 100% RA; ag hb
[2017-12-02] MEDS ORDERED: ONDANSETRON 4 MG/2 ML VIAL IV PRN (10:27)
[2017-12-02] MEDS ORDERED: ACETAMINOPHEN 500 MG TAB PO PRN (10:27)
[2017-12-02 13:45] LABS: Urine Blood 2+ (NEG); Urine Glucose NEGATIVE (NEG); Urine Protein NEGATIVE (NEG); Urine pH 7.5 (5.0-7.0)
[2017-12-02 15:38] VITALS: TEMP 98.2
[2017-12-02 15:47] VITALS: BP 136/51; O2SAT 95
--- NOTE | 2017-12-03 11:11 | EKG ---
Test Date: 2017-12-02 Test Time: 08:07:57 Environmental Permitting Specialist: EUGENIO MEASUREMENT RESULTS: Intervals: Rate: 77 PA: 142 QRSD: 94 QT: 410 QTc: 463 [place]: P: 68 PA: 142 QRS: 60 T: 39 INTERPRETIVE STATEMENTS: Normal sinus rhythm Cannot rule out Anterior infarct, age undetermined Abnormal ECG Compared to ECG 05/11/2017 16:52:07 Sinus bradycardia no longer present Atrial premature complex(es) no longer present Myocardial infarct finding still present Electronically Signed On 12-03-17 11:10:20 CDT by Giovanny Ojeda
== END 2017-12-02 15:32 | disposition home or self-care (01) ==
LOC: ER 08:02 → ERHOLD 10:05 → UNDOADMOB 10:05 → ERHOLD 11:56 → 2ND 11:56 → ER 15:32
DX: Z45.010 Encounter for checking and testing of cardiac pacemaker pulse generator [battery] (principal); I10 Essential (primary) hypertension; F41.9 Anxiety disorder, unspecified; K21.9 Gastro-esophageal reflux disease without esophagitis; F03.90 Unspecified dementia, unspecified severity, without behavioral disturbance, psychotic disturbance, mood disturbance, and anxiety
CPT/HCPCS: 36415; 71045; 80048; 81003; 82553; 82962; 83735; 83880; 84484; 85025; 85610; 93005; 94660; 99285

== ENCOUNTER 2018-01-29 21:07 | Emergency (ER) | payer OTHER ==
--- OUTSIDE RECORDS SUMMARY | 2018-01-29 21:09 | XMS REPORT | Clinical Summary ---
:1940 Author Organization [facility] Address [address] [place] [address] Care Team Providers Name Role Phone Asked, No Pcp Primary Care Provider Unavailable Allergies No Known Allergies Current Medications Prescription Sig. Disp. Refills Start Date End Date Status sertraline (ZOLOFT) Take 150 mg by 02/10/2017 Active 25 MG tablet mouth daily. pramipexole Take 1.5 mg by 04/27/2017 Active (MIRAPEX) 1.5 MG mouth daily. tablet pantoprazole Take 40 mg by 03/27/2017 Active (PROTONIX) 40 MG EC mouth daily. tablet levothyroxine Take 75 mcg by Active (SYNTHROID, mouth daily. LEVOXYL) 75 mcg tablet levothyroxine Take 88 mcg by 04/13/2017 Active (SYNTHROID, mouth daily. LEVOXYL) 88 mcg tablet atorvastatin Take 1 tablet 90 tablet 3 11/30/2017 Active (LIPITOR) 40 MG (40 mg total) 9 tablet by mouth daily. clopidogrel Take 1 tablet 30 tablet 11 11/30/2017 Active (PLAVIX) 75 mg (75 mg total) 9 tablet by mouth daily. omega Take by mouth. Active 5-mgu-wsc-fish oil 100-160-1,000 mg capsule traMADol (ULTRAM) as needed. 11/16/2017 Active 50 mg tablet aspirin (ECOTRIN) Take 81 mg by Active 81 MG enteric mouth daily. coated tablet memantine-donepezil Take by mouth. Active (NAMZARIC) 28-10 mg capsule,sprinkle,ER 24hr ubidecarenone (CO Take by mouth. Active Q-10 ORAL) amLODIPine Take 1 tablet 30 tablet 11 01/01/2018 Active (NORVASC) 5 mg (5 mg total) 9 tablet by mouth daily. lisinopril Take 1 tablet 90 tablet 3 01/09/2018 Active (PRINIVIL,ZESTRIL) (20 mg total) 9 20 mg tablet by mouth daily. lisinopril Take 20 mg by Discontinued (PRINIVIL,ZESTRIL) mouth daily. 8 10 mg tablet memantine (NAMENDA) Take 5 mg by 05/03/2017 Discontinued 5 MG tablet mouth daily. 8 diazePAM (VALIUM) Take 10 mg by 04/19/2017 Discontinued 10 MG tablet mouth daily. 8 atorvastatin Take 1 tablet 30 tablet 3 05/18/2017 (LIPITOR) 40 MG (40 mg total) 7 tablet by mouth nightly for 30 days. aspirin (ECOTRIN) Take 1 tablet 90 tablet 4 05/18/2017 81 MG enteric (81 mg total) 7 coated tablet by mouth daily for 30 days. clopidogrel Take 1 tablet 90 tablet 3 05/18/2017 (PLAVIX) 75 mg (75 mg total) 7 tablet by mouth daily for 30 days. minocycline Take 1 capsule 14 capsule 0 05/18/2017 (MINOCIN,DYNACIN) (100 mg total) 7 100 MG capsule by mouth every 12 (twelve) hours for 7 days. traMADol (ULTRAM) Take 1 tablet 30 tablet 0 05/18/2017 50 mg tablet (50 mg total) 7 by mouth every 6 (six) hours as [...] Encounters Date Type Specialty Care Team Description 01/09/2018 Refill Cardiology Alexandra, Med Refill Jose Jorge MD 01/01/2018 Office Visit Cardiology Alexandra Bradycardia (Primary Jose Jorge Dx) 01/01/2018 Orders Only Cardiology Jose Morris MD 11/30/2017 Orders Only Procedural Cardiology Jose Morris MD 06/11/2017 Office Visit Cardiology Alexandra Hypertension, Jose Jorge, unspecified type (Primary Dx) 06/11/2017 Orders Only Cardiology Jose Morris MD 06/11/2017 Procedure Pass Procedural Cardiology 06/08/2017 Orders Only Cardiology Lazaro Bradycardia (Primary Blanca Dx) TREY Hoover 06/07/2017 [facility] Radiology Ziggy Grider Essential Encounter MD Ajay hypertension 06/07/2017 Office Visit Cardiology Chaitanya Donovan, Essential hypertension ( Primary Dx); Maylin Hernandez NP Cardiac pacemaker in situ; Bradycardia 05/21/2017 Procedure Pass Procedural Cardiology 05/17/2017 Procedure Pass Procedural Cardiology 05/17/2017 Surgery Procedural Cardiology Alexandra, Ep ppi generator Jose Jorge, insertion dual MD [09425 (CPT)] 05/15/2017 Procedure Pass Procedural Cardiology 05/15/2017 Surgery Procedural Cardiology Hayden Sousa Cv left heart cath samia Hedrick MD lv gram cors [03433 (CPT)] 05/11/2017 - Hospital Cardiovascular Hayden Sousa Bradycardia (Primary Dx); 05/18/2017 Gautam Hedrick MD Hypotension, unspecified hypotension type; NSTEMI (non-ST elevated myocardial infarction) after 01/28/2017 Family History Relation Name Status Comments Father Mother Social History Tobacco Use Types Packs/Day Years Used Date Never Smoker Smokeless Tobacco: Never Used Alcohol Use Drinks/Week oz/Week Comments No Sex Assigned at Date Recorded Not on file Last Filed Vital Signs Vital Sign Reading Time Taken Blood Pressure 169/81 01/01/2018 9:40 AM CDT Pulse 61 01/01/2018 9:40 AM CDT Temperature 36.2 C (97.2 F) 05/18/2017 11:06 AM CDT Respiratory Rate 16 06/07/2017 10:51 AM CDT Oxygen Saturation 97% 05/18/2017 11:06 AM CDT Inhaled Oxygen Concentration - - Weight 61.2 kg (135 lb) 01/01/2018 9:25 AM CDT Height 154.9 cm (5' 1") 01/01/2018 9:25 AM CDT Body Mass Index 25.51 01/01/2018 9:25 AM CDT Plan of Treatment Date Type Specialty Care Team Description 04/02/2018 Office Visit Cardiology Jose Morris MD [address] [place] [phone] Health Maintenance Due Date Last Done Comments SHINGRIX VACCINE (#1) 1989 ZOSTER VACCINE 1999 PNEUMOCOCCAL POLYSACCHARIDE VACCINE AGE 65 AND OVER 2004 PNEUMOCOCCAL-13 2004 INFLUENZA VACCINE 04/10/2018 Implants Implanted Type Area Leather Toggler Device Expiration Model / Identifier Date Serial / Lot Pacemaker Retail Loss Prevention Investigator Dr Fenton 2chmbr W/ Is-1 Uni/Bi Conn Advisa - [id number] - [id number] Cardiac N/A: [employer] 10/07/2018 [id number] / Implanted: Qty: 1 on 05/17/2017 by Jose Morris MD Pacemaker N/A CARDIAC RHYTHM [id number] / Generators DISEASE MGMT [id number] Lead, Pacemaker Atrial And Ventricular 58 Centimeter Capsure Fix Novus System - [id number] - [id number] Cardiac Pacing N/A: [employer] [facility] 01/18/2019 [id number] / Implanted: Qty: 1 on 05/17/2017 by Jose Morris MD Leads or N/A [employer] [id number] / Electrodes or [id number] Accessories Lead, Pacemaker Bipolar Fix Forming Atrial And Ventricular Steroid Eluting 52 Centimeter Capsure Fix Novus - [id number] - [id number] Cardiac Pacing N/A: [employer] CRM 02/13/2019 [id number] / Implanted: Qty: 1 on 05/17/2017 by Jose Morris MD Leads or N/A [employer] [id number] / Electrodes or [id number] Accessories Procedures Procedure Name Priority Date/Time Associated Comments Diagnosis CV PACEMAKER DEFIB ILR Routine 01/01/2018 12:00 INTERROGATION AM CDT CV PACEMAKER DEFIB ILR Routine 06/11/2017 12:00 INTERROGATION AM CDT EP PPI GENERATOR INSERT Routine 05/17/2017 3:06 Results for this DUAL PM CDT procedure are in the results section. CV LEFT HEART CATH LV Routine 05/15/2017 5:52 Results for this GRAM WITH CORS PM CDT procedure are in the results section. KY INSERT NON-TUNNEL CV Routine 05/12/2017 2:34 Bradycardia Results for this CATH AM CDT Hypotension, procedure are in unspecified the results hypotension type section. NSTEMI (non-ST elevated myocardial infarction) ECHOCARDIOGRAM 2D STAT 05/11/2017 8:59 Results for this LIMITED PM CDT procedure are in the results section. after 01/28/2017 Results ECG 12 lead (01/01/2018 9:45 AM)Only the most recent of5 resultswithin the time period is included. Component Value Ref Range Ventricular rate 85 Atrial rate 85 KY interval 210 QRSD interval 92 QT interval 386 QTC interval 459 P axis 1 46 QRS axis 1 35 T wave axis 29 EKG impression Electronic atrial pacemaker-In automated comparison with ECG of 11-JUN-2017 09:17,-No significant change was found- Specimen Performing Laboratory [facility] [address] [place] [address] CV pacemaker defib or ilr interrogation (01/01/2018)CV pacemaker defib or ilr interrogation (06/11/2017)XR Chest 2 Vw (06/07/2017 12:23 PM) Specimen Performing Laboratory [facility] [address] [place] [address] Narrative EXAMINATION:XR CHEST 2 VW CLINICAL HISTORY:I10 Essential (primary) hypertension, s p dual chamber pacemakerevaluate lead placement IMPRESSION: There is a transvenous pacemaker in good position. Heart and mediastinum are normal. Lungs are clear. There is a severe thoracolumbar scoliosis. [id number] Procedure Note Interface, Radiology Results Incoming - 06/07/2017 1:16 PM CDT EXAMINATION: XR CHEST 2 VW CLINICAL HISTORY: I10 Essential (primary) hypertension, s p dual chamber pacemaker evaluate lead placement IMPRESSION: There is a transvenous pacemaker in good position. Heart and mediastinum are normal. Lungs are clear. There is a severe thoracolumbar scoliosis. [id number] XR Chest 1 Vw Portable (05/18/2017 11:10 AM)Only the most recent of2 resultswithin the time period is included. Specimen Performing Laboratory [facility] [address] [place] [address] Narrative EXAMINATION:XR CHEST 1 VW PORTABLE CLINICAL HISTORY:Post device placement COMPARISON:05/12/2017 chest IMPRESSION: Placement left subclavian transvenous pacer device. Pacer leads over the right atrium and right ventricle. Cardiac silhouette top normal size. Mild central vascular prominence. Minimal linear atelectasis right base No pneumothorax. No pleural effusion [id number] Procedure Note Interface, Radiology Results Incoming - 05/18/2017 12:22 PM CDT EXAMINATION: XR CHEST 1 VW PORTABLE CLINICAL HISTORY: Post device placement COMPARISON: 05/12/2017 chest IMPRESSION: Placement left subclavian transvenous pacer device. Pacer leads over the right atrium and right ventricle. Cardiac silhouette top normal size. Mild central vascular prominence. Minimal linear atelectasis right base No pneumothorax. No pleural effusion [id number] Estimated GFR (05/18/2017 5:10 AM)Only the most [...] and Americans. Specimen Performing Laboratory Plasma specimen [facility] DEPARTMENT OF PATHOLOGY AND GENOMIC MEDICINE [address] [place] [address] Prothrombin time with INR (05/18/2017 5:10 AM)Only [...] vein thrombosis/pulmonary embolism. Specimen Performing Laboratory Blood [facility] PATHOLOGY AND [facility] [address] [place] [address] CBC with platelet and differential (05/18/2017 5:10 [...] (promyelocytes, myelocytes, metamyelocytes) Specimen Performing Laboratory Blood [facility] DEPARTMENT OF PATHOLOGY AND GENOMIC MEDICINE [address] [place] [address] Basic metabolic panel (05/18/2017 5:10 AM)Only the [...] 10.2 mg/dL Specimen Performing Laboratory Plasma specimen [facility] DEPARTMENT OF PATHOLOGY AND GENOMIC MEDICINE [address] [place] [address] Cv electrophysiology procedure (05/17/2017 3:06 PM) Specimen Performing Laboratory [facility] [address] [place] [address] Narrative ELECTROPHYSIOLOGY SERVICE OPERATIVE REPORT PROCEDURE: OPERATION [...] brought to the electrophysiology laboratory at the [facility].Informed consent was given by the patient prior [...] 0.00 /100 WBC Specimen Performing Laboratory Blood [facility] DEPARTMENT OF PATHOLOGY AND GENOMIC MEDICINE [address] [place] [address] Partial thromboplastin time, activated (05/16/2017 5:00 AM)Only the most recent of10 resultswithin the time period is included. Component Value Ref Range PTT 25.2 23.0 - 36.0 sec Comment: PTT therapeutic range for unfractionated heparin is 61.0-112.0 seconds which corresponds to Anti-Xa 0.3-0.7 U/ml. Specimen Performing Laboratory Blood [facility] DEPARTMENT OF PATHOLOGY AND GENOMIC MEDICINE [address] [place] [address] Thyroid stimulating hormone (05/16/2017 4:00 AM) Component Value Ref Range TSH 1.56 0.27 - 4.20 uIU/mL Specimen Performing Laboratory Plasma specimen [facility] DEPARTMENT OF PATHOLOGY AND GENOMIC MEDICINE [address] [place] [address] Cv labor law professor procedure (05/15/2017 5:52 PM) Component Value Ref Range Cath EF Estimated 60 % Specimen Performing Laboratory [facility] [address] [place] [address] Narrative 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 Phosphorus level (05/15/2017 4:50 AM)Only the most recent of5 resultswithin the time period is included. Component Value Ref Range Phosphorus 4.5 2.4 - 4.5 mg/dL Specimen Performing Laboratory Plasma specimen [facility] DEPARTMENT PATHOLOGY AND [address] [address] Magnesium level (05/15/2017 4:50 AM)Only the most recent of6 resultswithin the time period is included. Component Value Ref Range Magnesium 2.4 1.6 - 2.4 mg/dL Specimen Performing Laboratory Plasma specimen [facility] DEPARTMENT OF PATHOLOGY [address] [address] Ionized calcium (05/15/2017 4:50 AM)Only the most recent of4 resultswithin the time period is included. Component Value Ref Range pH 7.53 Ionized calcium 1.14 1.11 - 1.32 mmol/L Specimen Performing Laboratory Plasma specimen [facility] PATHOLOGY [address] [address] Potassium level (05/14/2017 12:40 PM) Component Value Ref Range Potassium 3.7 3.5 - 5.0 mEq/L Specimen Performing Laboratory Plasma specimen [facility] PATHOLOGY [facility] MEDICINE [address] [place] [address] POC glucose (05/14/2017 12:06 PM)Only the most recent of17 resultswithin the time period is included. Component Value Ref Range POC glucose 107 (H) 65 - 99 mg/dL Comment: [facility] Notified RN Meter ID: [id number] Proof Press Operator: Linda Chapman Specimen Performing Laboratory [facility] PATHOLOGY [address] [address] Troponin (05/13/2017 12:16 AM)Only the most recent [...] myocardial injury. Specimen Performing Laboratory Plasma specimen [facility] DEPARTMENT PATHOLOGY [address] [address] Pv duplex venous lower extremity (05/12/2017 7:50 PM) Specimen Performing Laboratory [facility] [address] [id number] [facility] Vascular Ultrasound Laboratory Lower Extremity Venous Report [address] [place] [address] Pat.Name:JOAN ABRAMS.ID:[id number] St.Date: 05/12/2017Refer.MD:HAYDEN SOUSA MD Exam Time: 7:32:00 PMStudy Type:LE Venous DOBAge:1940,77YSex: FEMALE Sonogrphr: Savage Mclean RVTPat. Stat.:[facility]DA, CPT - 4: 13849 Echo Event ID:[id number] Order ID:[id number] Reason for Study:NSTEMI History / Clinical:Other,NSTEMI Race: [...] Vascular Ultrasound Laboratory Lower Extremity Venous Report [address] [place] [id number] Pat.Name: JOAN ABRAMS Pat.ID: [id number] .Date: 05/12/2017 Refer.MD: HAYDEN SOUSA MD Exam Time: 7:32:00 PM Study Type:LE Venous Age: 7 1940,77Y Sex: FEMALE Sonogrphr: Savage Mclean JOSE C Pat. Stat.:Inpatient Room: [facility] 4 Tape Vol: CN, CPT - 4: 98421 Echo Event ID:[id number] Order ID: [id number] Reason for Study:NSTEMI History / Clinical:Other, NSTEMI [...] - 1.00 U/mL Specimen Performing Laboratory Blood [facility] DEPARTMENT OF PATHOLOGY AND GENOMIC MEDICINE [address] [place] [address] CENTRAL LINE (05/12/2017 2:34 AM) Narrative LILIA Menjivar 05/12/20172:34 AM Central Line Insertion Performed by: BIJAN VOGT Authorized by: BIJAN VOGT Consent: Consent obtained:Verbal and emergent situation Consent given by:Patient and parent Risks discussed:Arterial puncture, incorrect placement, bleeding and infection Alternatives discussed:Delayed treatment and referral [place] protocol: Procedure explained and questions answered to [...] 9:23 PM) Specimen Performing Laboratory [facility] [address] [place] [address] Narrative Vascular Ultrasound Laboratory Carotid Artery Duplex Report [address] [place] [address] For senior supplier quality engineer purposes, the categorization of the degree of the stenosis of this exam is based on criteria described in the IAC carotid stenosis grading white paper( www.intersocietal.org/Vascular) and Alexia Shaikh, Ant Gomez, et al. Carotid artery stenosis: rogers-scale and Doppler US diagnosis--Society of Radiologists in Ultrasound Consensus Conference. Radiology. 2003 Jul; 229(2):340-6. Pat.Name:JOAN ABRAMS Pat.ID:[id number] .Date: 05/11/2017Refer.MD:HAYDEN SOUSA MD Exam Time: 9:00:00 PMStudy Type:Carotid DOBAge:1940,77YSex: FEMALE Sonogrphr: COSTA Shepherd, CHRIS Pat. Stat.:Inpatient [facility] [id number] TapeVol: ACACIA, CPT - 4: 06197 Echo Event ID:[id number] Order ID:[id number] Reason for Study:Evaluate for carotid artery disease. [...] Vascular Ultrasound Laboratory Carotid Artery Duplex Report [address] [place] [address] For senior supplier quality engineer purposes, the categorization of the degree of the stenosis of this exam is based on criteria described in the IAC carotid stenosis grading white paper( www.intersocietal.org/Vascular) and Anais Shaikh., Jason, CDevikaB., et al. Carotid artery stenosis: rogers-scale and Doppler US diagnosis--Society of Radiologists in Ultrasound Consensus Conference. Radiology. 2003 Jul; 229(2):340-6. Pat.Name: JOAN ABRAMS Pat.ID: [id number] .Date: 05/11/2017 Refer.MD: HAYDEN SOUSA MD Exam Time: 9:00:00 PM Study Type:Carotid Age: 7 1940,77Y Sex: FEMALE Sonogrphr: COSTA Shepherd RCS Pat. Stat.:Inpatient Room: [facility] [id number] Tape Vol: ACACIA, CPT - 4: 67473 Echo Event ID:[id number] Order ID: [id number] Reason for Study:Evaluate for carotid artery disease. [...] 8:59 PM) Specimen Performing Laboratory [facility] [address] [place] [address] Narrative Echocardiography Report [address] [place] [address] Pat.Name:JOAN ABRAMS Pat.ID:[id number] .Date: 05/11/2017Refer.MD:HAYDEN SOUSA MD Exam Time: 8:38:00 PMStudy Type:Routine Echo Height:60inWeight: 121lb BSA: 1.51 m2 DOBAge:1940,77Y Sex: FEMALEBP:114/59 HR:57 bpmSonogrphr: CHRIS Santana, RVS Pat. Stat.:Inpatient Room:[place] [address] CPT - 4: 79470, [id number] Status:Final Echo Event ID:[id number] Order ID:[id number] Reason for Study:Myocardial Ischemia/Infarction - Eval of a patient without chest pain but with other features of an ischemic equivalent or laboratory markers indicative of ongoing [place]. Procedures:2D Echo, Colorflow Doppler, Strain, Portable Race:C FINDINGS: LV: LV size is normal. There is mild concentric LV hypertrophy. LVglobal systolic function is normal. Difficult to assess segmentalfunction. Basal and mid segments are hyperdynamic.[place] is not well visualized and cannot excludeapical [...] RAPof 5 mmHg. MEASUREMENTS: 2D Parasternal Long Mclean LVIDd3.9 cmIndex 2.6 cm/m Ao Rtd 2.8 cm Index1.9 cm/m LVIDs2.6 cmLV Fiuq273.3 g(87-129) LV%fs 33.3 % LVM Index 105.5 g/m2 IVSd 1.2 cmRWT0.6 LVPWd1.2 cm Signed 05/12/2017 08:40 PM Germain Aranda M.D. Procedure Note Interface, Radiology Results In - 05/12/2017 8:40 PM CDT Echocardiography Report [address] [place] [address] Pat.Name: JOAN ABRAMS.ID: [id number] .Date: 05/11/2017 Refer.MD: HAYDEN SOUSA MD Exam Time: 8:38:00 PM Study Type:Routine Echo Height: 60in Weight: 121lb BSA: 1.51 m2 Age: 8 1940,77Y Sex: FEMALE BP: 114/59 HR: 57 bpm Sonogrphr: CHRIS Santana, COSTA Pat. Stat.:Inpatient Room: [place] [address] CPT - 4: 23884, 31327 Study Status:Final Echo Event ID:[id number] Order ID: [id number] Reason for Study:Myocardial Ischemia/Infarction - Eval of a patient without chest pain but with other features of an ischemic equivalent or laboratory markers indicative of ongoing [place]. Procedures:2D Echo, Colorflow Doppler, Strain, Portable Race: C FINDINGS: LV: LV size is normal. There is mild concentric LV hypertrophy. LV global systolic function is normal. Difficult to assess segmental function. Basal and mid segments are hyperdynamic. [place] is not well visualized and cannot exclude [...] of 5 mmHg. MEASUREMENTS: 2D Parasternal Long Mclean LVIDd 3.9 cm Index 2.6 cm/m Ao [...] screen (gel) NEG Specimen Performing Laboratory Blood [facility] DEPARTMENT OF PATHOLOGY AND GENOMIC MEDICINE [address] [place] [address] B natriuretic peptide (05/11/2017 8:00 PM) Component Value Ref Range BNP 58 0 - 100 pg/mL Specimen Performing Laboratory Blood [facility] DEPARTMENT OF PATHOLOGY AND GENOMIC MEDICINE [address] [place] [address] after 01/28/2017 Insurance Payer Benefit Plan / Group Subscriber ID Type Phone Address [employer] MEDICARE AETNA MEDICARE HMO/PPO [facility] xxxxxxxx HMO [phone] [place] [address]
[2018-01-29 22:44] LABS: Absolute Lymphocytes (CBC) 2.4 K/uL (0.7-4.9); Absolute Monocytes 0.5 K/uL (0.1-1.3); Absolute Neutrophil 4.2 K/uL (1.8-8.0); Basophils % 0.7 % (0-1.3); Eosinophils % 2.4 % (0-4.4); Hematocrit 36.2 % (36.0-45.0); Lymphocytes % 32.5 % (15.3-44.8); MCH 28.3 pg (27.0-35.0); MCV 87.7 fL (80-100); Monocytes % 6.9 % (3.3-12.3); RBC Red Blood Cell Count 4.13 M/uL (3.86-4.86)
[2018-01-29 22:56] LABS: Potassium 3.2 mEq/L (3.6-5.0); Protime INR 0.92
[2018-01-29 22:59] LABS: Albumin 3.5 g/dL (3.2-5.5); Bilirubin Total 0.3 mg/dL (0.3-1.2); Protein, Total 6.2 g/dL (6.0-8.3)
--- NOTE | 2018-01-30 00:19 | ER ---
Nurse's Notes [facility] Name: Joan Cohn Age: 77 yrs Sex: Female : 1940 Arrival Date: 01/29/2018 Time: 21:07 Bed 15 Private MD: Diagnosis: Epistaxis;Essential (primary) hypertension Presentation: 01/29 21:08 Presenting complaint: Patient states: My nose started bleeding about 40 minutes ago. aj1 I've had a lot of nose bleeds, but never one this bad, they usually only last for a few minutes. It was pouring out of my blood and mouth, with a lot of clots, its never been like that. I think its finally stopped now. Transition of care: patient was not received from another setting of care. Onset of symptoms was January 29, 2018. Risk Assessment: Do you want to hurt yourself or someone else? Patient reports no desire to harm self or others. Initial Sepsis Screen: Does the patient meet any 2 criteria? No. Patient's initial sepsis screen is negative. Does the patient have a suspected source of infection? No. Patient's initial sepsis screen is negative. Care prior to arrival: None. 21:08 Method Of Arrival: Ambulatory aj1 21:08 Acuity: MIGUEL 3 aj1 Triage Assessment: 21:16 General: Appears in no apparent distress. comfortable, Behavior is calm, cooperative, aj1 appropriate for age. Pain: Denies pain. EENT: Reports nose bleed, that has now resolved, but patient states that she still feels her "sinuses trying to drain". Historical: - Allergies: 21:16 No Known Allergies; aj1 - Home Meds: 21:16 amlodipine 5 mg oral tab [Active]; lisinopril 20 mg oral tab once daily [Active]; aj1 sertraline 50 mg oral tab once daily [Active]; atorvastatin 75 mg Oral tab 1 tab once daily [Active]; baclofen 10 mg Oral tab 1 tab 3 times per day [Active]; clonazepam 0.5 mg Oral tab 1 tab 2 times per day [Active]; cranberry Oral [Active]; diclofenac potassium 50 mg Oral tab 1 tab 3 times per day [Active]; donepezil 5 mg Oral tab 1 tab once daily [Active]; gabapentin 300 mg Oral cap 1 cap nightly [Active]; levothyroxine 75 mcg tab 1 tab once daily [Active]; lorazepam 0.5 mg Oral tab [Active]; memantine 5 mg Oral tab 1 tabs BID [Active]; Mirapex 1.5 mg Oral tab [Active]; pantoprazole 40 mg Oral TbEC 1 tab once daily [Active]; pramipexole 0.5 mg Oral tab 1 tab [Active]; pramipexole 1.5 mg Oral Tb24 1 tab once daily [Active]; sertraline 25 mg Oral tab 1 tab once daily [Active]; Vitamin D Oral 2000 unit [Active]; Women's One Daily 18 mg iron-400 mcg-500 mg Ca Oral tab [Active]; - PMHx: 21:16 Anxiety; Dementia; GERD; Hypertension; Hypothyroidism; scoliosis; aj1 - PSHx: 21:16 Hysterectomy; aj1 - Immunization history:: Flu vaccine is not up to date. - Social history:: Smoking status: Patient/guardian denies using tobacco. - Ebola Screening: : No symptoms or risks identified at this time. - Family history:: not pertinent. Screenin:40 Abuse screen: Denies threats or abuse. Denies injuries from another. Nutritional bp screening: No deficits noted. Tuberculosis screening: No symptoms or risk factors identified. Fall Risk None identified. Assessment: 21:20 Reassessment: RECD 77YO WF VIA W/C FROM TRIAGE, C/O NOSEBLEED <1HR. EPISTAXIS RESOLVED bp AT THIS TIME. PT HAS H/O SAME MX TIMES IN PAST. General: Appears in no apparent distress. comfortable, Behavior is calm, cooperative, appropriate for age. Pain: Denies pain. Neuro: Level of Consciousness is awake, alert, obeys commands, Oriented to person, place, time, situation, Appropriate for age. 22:38 Reassessment: LAB RESULTS PENDING, NO EPISTAXIS AT THIS TIME. bp 23:23 Reassessment: ALL CURRENT STUDIES RESULTS, RESULTS UNREMARKABLE. DISPO PENDING. bp 01/30 00:29 Reassessment: PT D/C HOME, DX WITH EPISTAXIS (RESOLVED). bp Vital Signs: 01/29 21:16 BP 127 / 60; Pulse 81; Resp 18; Temp 98.5; Pulse Ox 96% on R/A; Weight 60.33 kg (R); aj1 Height 5 ft. 3 in. (160.02 cm); Pain 0/10; 22:39 BP 117 / 52; Pulse 72; Resp 16; Pulse Ox 97% ; bp 23:22 BP 112 / 53; Pulse 57; Resp 16; Pulse Ox 97% ; bp 01/30 00:10 BP 144 / 55; Pulse 60; Resp 14; Pulse Ox 97% ; bp 01/29 21:16 Body Mass Index 23.56 (60.33 kg, 160.02 cm) aj1 ED Course: 01/29 21:07 Patient arrived in ED. ds1 21:13 Triage completed. aj1 21:16 Arm band placed on Patient placed in an exam room. aj1 21:38 Ulisses Onofre, RN is Primary Nurse. bp 21:40 Patient has correct armband on for positive identification. Bed in low position. Call bp light in reach. Side rails up X2. Adult w/ patient. 21:48 Chintan Torres MD is Attending Physician. yasmine 22:20 Inserted saline lock: 20 gauge in right forearm, using aseptic technique. Blood bp collected. 01/30 00:18 Chen Krishnamurthy MD is Referral Physician. yasmine 00:30 No provider procedures requiring assistance completed. IV discontinued, intact, bp bleeding controlled, No redness/swelling at site. Pressure dressing applied. Administered Medications: 00:25 Drug: Potassium Effervescent Tablet 25 mEq Route: PO; bp 00:29 Follow up: Response: Medication administered at discharge. bp Outcome: 00:19 Discharge ordered by . yasmine 00:30 Discharged to home ambulatory, with family. bp 00:30 Condition: stable 00:30 Discharge instructions given to patient, family, Instructed on discharge instructions, follow up and referral plans. Demonstrated understanding of instructions, follow-up care. 00:47 Patient left the ED. bp Signatures: Florecita Yin RN RN aj1 Chintan Torres MD MD cha Sanford, Demi ds1 Ulisses Onofre, RN RN bp
--- NOTE | 2018-01-30 00:20 | EDPHYS ---
Physician Documentation [facility] Name: Joan Cohn Age: 77 yrs Sex: Female : 1940 Arrival Date: 01/29/2018 Time: 21:07 Bed 15 Private MD: ED Physician Chintan Torres HPI: 01/29 22:11 This 77 yrs old Female presents to ER via Ambulatory with complaints of Nose yasmine Bleed. 22:11 This 77 yrs old Female presents to ER via Ambulatory with complaints of Nose yasmine Bleed. 22:11 This 77 yrs old Female presents to ER via Ambulatory with complaints of Nose yasmine Bleed. 22:11 The patient presents with a nose bleed. Onset: The symptoms/episode began/occurred just yasmine prior to arrival. Modifying factors: The symptoms are alleviated by nothing. the symptoms are aggravated by nothing. Associated signs and symptoms: The patient has no apparent associated signs or symptoms. Severity of symptoms: At their worst the symptoms were mild in the emergency department the symptoms are unchanged. The patient has not experienced similar symptoms in the past. Historical: - Allergies: 21:16 No Known Allergies; aj1 - Home Meds: 21:16 amlodipine 5 mg oral tab [Active]; lisinopril 20 mg oral tab once daily [Active]; aj1 sertraline 50 mg oral tab once daily [Active]; atorvastatin 75 mg Oral tab 1 tab once daily [Active]; baclofen 10 mg Oral tab 1 tab 3 times per day [Active]; clonazepam 0.5 mg Oral tab 1 tab 2 times per day [Active]; cranberry Oral [Active]; diclofenac potassium 50 mg Oral tab 1 tab 3 times per day [Active]; donepezil 5 mg Oral tab 1 tab once daily [Active]; gabapentin 300 mg Oral cap 1 cap nightly [Active]; levothyroxine 75 mcg tab 1 tab once daily [Active]; lorazepam 0.5 mg Oral tab [Active]; memantine 5 mg Oral tab 1 tabs BID [Active]; Mirapex 1.5 mg Oral tab [Active]; pantoprazole 40 mg Oral TbEC 1 tab once daily [Active]; pramipexole 0.5 mg Oral tab 1 tab [Active]; pramipexole 1.5 mg Oral Tb24 1 tab once daily [Active]; sertraline 25 mg Oral tab 1 tab once daily [Active]; Vitamin D Oral 2000 unit [Active]; Women's One Daily 18 mg iron-400 mcg-500 mg Ca Oral tab [Active]; - PMHx: 21:16 Anxiety; Dementia; GERD; Hypertension; Hypothyroidism; scoliosis; aj1 - PSHx: 21:16 Hysterectomy; aj1 - Immunization history:: Flu vaccine is not up to date. - Social history:: Smoking status: Patient/guardian denies using tobacco. - Ebola Screening: : No symptoms or risks identified at this time. - Family history:: not pertinent. ROS: 22:11 Constitutional: Negative for fever, chills, and weight loss, Eyes: Negative for injury, yasmine pain, redness, and discharge, Neck: Negative for injury, pain, and swelling, Cardiovascular: Negative for chest pain, palpitations, and edema, Respiratory: Negative for shortness of breath, cough, wheezing, and pleuritic chest pain, Abdomen/GI: Negative for abdominal pain, nausea, vomiting, diarrhea, and constipation, Back: Negative for injury and pain, : Negative for injury, bleeding, discharge, and swelling, MS/Extremity: Negative for injury and deformity, Skin: Negative for injury, rash, and discoloration, Neuro: Negative for headache, weakness, numbness, tingling, and seizure. 22:11 ENT: Positive for nose bleed. Exam: 22:11 Constitutional: This is a well developed, well nourished patient who is awake, alert, yasmine and in no acute distress. Head/Face: Normocephalic, atraumatic. Eyes: Pupils equal round and reactive to light, extra-ocular motions intact. Lids and lashes normal. Conjunctiva and sclera are non-icteric and not injected. Cornea within normal limits. Periorbital areas with no swelling, redness, or edema. Neck: Trachea midline, no thyromegaly or masses palpated, and no cervical lymphadenopathy. Supple, full range of motion without nuchal rigidity, or vertebral point tenderness. No Meningismus. Chest/axilla: Normal chest wall appearance and motion. Nontender with no deformity. No lesions are appreciated. Cardiovascular: Regular rate and rhythm with a normal S1 and S2. No gallops, murmurs, or rubs. Normal PMI, no JVD. No pulse deficits. Respiratory: Lungs have equal breath sounds bilaterally, clear to auscultation and percussion. No rales, rhonchi or wheezes noted. No increased work of breathing, no retractions or nasal flaring. Abdomen/GI: Soft, non-tender, with normal bowel sounds. No distension or tympany. No guarding or rebound. No evidence of tenderness throughout. Back: No spinal tenderness. No costovertebral tenderness. Full range of motion. Female : Normal external genitalia. Skin: Warm, dry with normal turgor. Normal color with no rashes, no lesions, and no evidence of cellulitis. MS/ Extremity: Pulses equal, no cyanosis. Neurovascular intact. Full, normal range of motion. Neuro: Awake and alert, GCS 15, oriented to person, place, time, and situation. Cranial nerves II-XII grossly intact. Motor strength 5/5 in all extremities. Sensory grossly intact. Cerebellar exam normal. Normal gait. Psych: Awake, alert, with orientation to person, place and time. Behavior, mood, and affect are within normal limits. 22:11 ENT: Nose: External nose: no obvious acute abnormality, Nasal mucosa: normal, Turbinates: are normal, abrasion, is not appreciated, bleeding, is not appreciated, clotted blood, is not appreciated, a foreign body, is not appreciated. Vital Signs: 21:16 BP 127 / 60; Pulse 81; Resp 18; Temp 98.5; Pulse Ox 96% on R/A; Weight 60.33 kg (R); aj1 Height 5 ft. 3 in. (160.02 cm); Pain 0/10; 22:39 BP 117 / 52; Pulse 72; Resp 16; Pulse Ox 97% ; bp 23:22 BP 112 / 53; Pulse 57; Resp 16; Pulse Ox 97% ; bp 01/30 00:10 BP 144 / 55; Pulse 60; Resp 14; Pulse Ox 97% ; bp 01/29 21:16 Body Mass Index 23.56 (60.33 kg, 160.02 cm) aj1 MDM: 01/29 21:48 Patient medically screened. [facility] 22:11 Data reviewed: vital signs, nurses notes, lab test result(s). [facility] 01/29 22:10 Order name: CBC with Diff; Complete Time: 00:17 [facility] 01/29 22:10 Order name: Comprehensive Metabolic Panel; Complete Time: 00:17 [facility] 01/29 22:10 Order name: PT-INR; Complete Time: 00:17 [facility] 01/29 22:10 Order name: Ptt, Activated; Complete Time: 00: [facility] 01/29 22:11 Order name: IV Start; Complete Time: 22:20 [facility] Administered Medications: 01/30 00:25 Drug: Potassium Effervescent Tablet 25 mEq Route: PO; bp 00:29 Follow up: Response: Medication administered at discharge. bp Disposition: 01/30/18 00:19 Discharged to Home. Impression: Epistaxis, Essential (primary) hypertension. - Condition is Stable. - Discharge Instructions: Nosebleed, Hypertension, Hypertension, [id number], Nosebleed, [id number]. - Medication Reconciliation Form, Thank You Letter, Antibiotic Education, Prescription Opioid Use form. - Follow up: Private Physician; When: 2 - 3 days; Reason: Recheck today's complaints, Continuance of care, Re-evaluation by your physician. Follow up: Chen Krishnamurthy MD; When: 1 - 2 days; Reason: Recheck today's complaints, Re-evaluation by your physician. - Problem is new. - Symptoms have improved. Signatures: Dispatcher [employer] EDFlorecita Alcantara RN RN ajChintan Villa MD MD cha Peltier, Brian, RN RN bp Corrections: (The following items were deleted from the chart) 00:47 00:19 01/30/2018 00:19 Discharged to Home. Impression: Epistaxis; Essential (primary) bp hypertension. Condition is Stable. Forms are Medication Reconciliation Form, Thank You Letter, Antibiotic Education, Prescription Opioid Use. Follow up: Private Physician; When: 2 - 3 days; Reason: Recheck today's complaints, Continuance of care, Re-evaluation by your physician. Follow up: Chen Krishnamurthy; When: 1 - 2 days; Reason: Recheck today's complaints, Re-evaluation by your physician. Problem is new. Symptoms have improved. yasmine
[2018-01-30] MEDS ORDERED: POTASSIUM 25 MEQ EFFERV TAB ONE (00:22)
[2018-01-30 00:54] VITALS: TEMP 98.5
[2018-01-30 00:55] VITALS: O2SAT 97
[2018-01-30 00:57] VITALS: BP 144/55
== END 2018-01-30 00:47 | disposition home or self-care (01) ==
LOC: ER 21:07
DX: R04.0 Epistaxis (principal); I10 Essential (primary) hypertension; K21.9 Gastro-esophageal reflux disease without esophagitis; E03.9 Hypothyroidism, unspecified; F41.9 Anxiety disorder, unspecified
CPT/HCPCS: 36415; 80053; 85025; 85610; 85730; 99284

== ENCOUNTER 2018-05-04 17:01 | Emergency (ER) | payer OTHER ==
--- OUTSIDE RECORDS SUMMARY | 2018-05-04 17:02 | XMS REPORT | Clinical Summary ---
:1940 Author Organization [facility] Address [address] [place] [address] Care Team Providers Name Role Phone Asked, [...] mouth daily. omega Take by mouth. Active 7-lxm-olv-fish oil 100-160-1,000 mg capsule traMADol (ULTRAM) as [...] 9 20 mg tablet by mouth daily. cetirizine (ZyrTEC) Take 10 mg by Active 10 MG tablet mouth daily. vit B comp Take 1 tablet Active no.8-qgbiu-L-biotin by mouth (NEPHRO-MARY LOU RX) daily. 1-60-300 mg-mg-mcg tablet lisinopril Take 20 mg by Discontinued (PRINIVIL,ZESTRIL) [...] Encounters Date Type Specialty Care Team Description 04/02/2018 Office Visit Cardiology Alexandra Bradycardia (Primary Dx); Jose Jorge Dyspnea on exertion 04/02/2018 Orders Only Cardiology Jose Salguero MD 01/09/2018 Refill Cardiology Alexandra Med Refill Jose Jorge MD 01/01/2018 Office Visit Cardiology Alexandra Bradycardia (Primary Jose Jorge Dx) 01/01/2018 Orders Only Cardiology Jose Salguero MD 11/30/2017 Orders Only Procedural Cardiology Jose Salguero MD 06/11/2017 Office Visit Cardiology Alexandra, Hypertension, Jose Jorge, unspecified type (Primary Dx) 06/11/2017 Orders Only Cardiology Jose Salguero MD 06/11/2017 Procedure Pass Procedural Cardiology 06/08/2017 Orders Only Cardiology Lazaro Bradycardia (Primary Blanca Dx) TREY Hoover 06/07/2017 [facility] Radiology Ziggy Grider Essential Encounter MD Ajay hypertension 06/07/2017 Office Visit Cardiology Chaitanya Donovan, Essential hypertension ( Primary Dx); Maylin Hernandez NP Cardiac pacemaker in situ; Bradycardia 05/21/2017 Procedure Pass Procedural Cardiology 05/17/2017 Procedure Pass Procedural Cardiology 05/17/2017 Surgery Procedural Cardiology Alexandra, Ep ppi generator Jose Jorge, insertion dual [61788 (CPT)] 05/15/2017 Procedure Pass Procedural Cardiology 05/15/2017 Surgery Procedural Cardiology Hayden Sousa Cv left heart cath smaia RMD Devika lv gram cors [71556 (CPT)] 05/11/2017 - Hospital Cardiovascular Rylan Hayden Bradycardia (Primary Dx); 05/18/2017 Gautam Hedrick MD Hypotension, unspecified hypotension type; NSTEMI (non-ST elevated myocardial infarction) after 05/03/2017 Family History Relation Name Status Comments Father Mother Social History Tobacco Use Types Packs/Day Years Used Date Never Smoker Smokeless Tobacco: Never Used Alcohol Use Drinks/Week oz/Week Comments No Sex Assigned at Date Recorded Not on file Last Filed Vital Signs Vital Sign Reading Time Taken Blood Pressure 164/72 04/02/2018 11:17 AM CDT Pulse 70 04/02/2018 11:17 AM CDT Temperature 36.2 C (97.2 F) 05/18/2017 11:06 AM CDT Respiratory Rate 16 06/07/2017 10:51 AM CDT Oxygen Saturation 97% 05/18/2017 11:06 AM CDT Inhaled Oxygen Concentration - - Weight 61.2 kg (135 lb) 04/02/2018 11:17 AM CDT Height 154.9 cm (5' 1") 04/02/2018 11:17 AM CDT Body Mass Index 25.51 04/02/2018 11:17 AM CDT Plan of Treatment Date Type Specialty Care Team Description 04/01/2019 Office Visit Cardiology Jose Salguero MD [address] [place] [address] Health Maintenance Due Date Last Done Comments SHINGRIX VACCINE (#1) 1989 ZOSTER VACCINE 1999 PNEUMOCOCCAL POLYSACCHARIDE VACCINE AGE 65 AND OVER 2004 PNEUMOCOCCAL-13 2004 INFLUENZA VACCINE 04/10/2018 Implants Implanted Type Area Trim Stencil Maker Device Expiration Model / Identifier Date Serial / Lot Pacemaker Tack Maker Dr Fenton 2chmbr W/ Is-1 Uni/Bi Conn Advisa - [id number] - [id number] Cardiac N/A: [employer] 10/07/2018 [id number] / Implanted: Qty: 1 on 05/17/2017 by Jose Salguero MD Pacemaker N/A CARDIAC RHYTHM [id number] / Generators DISEASE MGMT [id number] Lead, Pacemaker Atrial And Ventricular 58 Centimeter Capsure Fix Novus System - [id number] - [id number] Cardiac Pacing N/A: [employer] CRM 01/18/2019 [id number] / Implanted: Qty: 1 on 05/17/2017 by Jose Salguero MD Leads or N/A [employer] [place] [id number] / Electrodes or [id number] Accessories Lead, Pacemaker Bipolar Fix Forming Atrial And Ventricular Steroid Eluting 52 Centimeter Capsure Fix Fadi - [id number] - [id number] Cardiac Pacing N/A: [employer] [facility] 02/13/2019 [id number] / Implanted: Qty: 1 on 05/17/2017 by Jose Salguero MD Leads or N/A [employer] [id number] / Electrodes or [id number] Accessories Procedures Procedure Name Priority Date/Time Associated Diagnosis Comments ECHOCARDIOGRAM 2D Routine 05/02/2018 4:50 Results for this COMPLETE W MMODE PM CDT procedure are in SPECTRAL COLOR DOPPLER the results (82879) section. CV PACEMAKER DEFIB ILR Routine 04/02/2018 12:00 INTERROGATION AM CDT ECG 12-LEAD Routine 01/01/2018 9:45 Bradycardia Results for this AM CDT procedure are in the results section. CV PACEMAKER DEFIB ILR Routine 01/01/2018 12:00 INTERROGATION AM CDT ECG 12-LEAD Routine 06/11/2017 9:17 Hypertension, Results for this AM CDT unspecified type procedure are in the results section. CV PACEMAKER DEFIB ILR Routine 06/11/2017 12:00 INTERROGATION AM CDT XR CHEST 2 VW Routine 06/07/2017 12:23 Essential Results for this PM CDT hypertension procedure are in the results section. ECG 12-LEAD Routine 06/07/2017 10:01 Essential Results for this AM CDT hypertension procedure are in the results section. XR CHEST 1 VW PORTABLE Routine 05/18/2017 11:10 Results for this AM CDT procedure are in the results section. ESTIMATED GFR Routine 05/18/2017 5:10 Results for this AM CDT procedure are in the results section. BASIC METABOLIC PANEL Routine 05/18/2017 5:10 Results for this AM CDT procedure are in the results section. HC COMPLETE BLD COUNT Routine 05/18/2017 5:10 Results for this W/AUTO DIFF AM CDT procedure are in the results section. PROTHROMBIN TIME WITH Routine 05/18/2017 5:10 Results for this INR AM CDT procedure are in the results section. EP INSERTION PACEMAKER Routine 05/17/2017 3:06 Results for this PULSE GENERATOR PM CDT procedure are in the results section. ESTIMATED GFR Routine 05/17/2017 5:15 Results for this AM CDT procedure are in the results section. CBC HEMOGRAM Routine 05/17/2017 5:15 Results for this AM CDT procedure are in the results section. BASIC METABOLIC PANEL Routine 05/17/2017 5:15 Results for this AM CDT procedure are in the results section. PARTIAL THROMBOPLASTIN Routine 05/16/2017 5:00 Results for this TIME (PTT) AM CDT procedure are in the results section. CBC HEMOGRAM Routine 05/16/2017 4:50 Results for this AM CDT procedure are in the results section. ESTIMATED GFR Routine 05/16/2017 4:00 Results for this AM CDT procedure are in the results section. THYROID STIMULATING Routine 05/16/2017 4:00 Results for this HORMONE AM CDT procedure are in the results section. BASIC METABOLIC PANEL Routine 05/16/2017 4:00 Results for this AM CDT procedure are in the results section. CV LEFT HEART CATH LV Routine 05/15/2017 5:52 Results for this GRAM WITH CORS PM CDT procedure are in the results section. ESTIMATED GFR Routine 05/15/2017 4:50 Results for this AM CDT procedure are in the results section. PHOSPHORUS LEVEL Routine 05/15/2017 4:50 Results for this AM CDT procedure are in the results section. IONIZED CALCIUM Routine 05/15/2017 4:50 Results for this AM CDT procedure are in the results section. MAGNESIUM LEVEL Routine 05/15/2017 4:50 Results for this AM CDT procedure are in the results section. CBC HEMOGRAM Routine 05/15/2017 4:50 Results for this AM CDT procedure are in the results section. BASIC METABOLIC PANEL Routine 05/15/2017 4:50 Results for this AM CDT procedure are in the results section. PARTIAL THROMBOPLASTIN Routine 05/15/2017 4:50 Results for this TIME (PTT) AM CDT procedure are in the results section. ECG 12-LEAD STAT 05/14/2017 1:19 Results for this PM CDT procedure are in the results section. IONIZED CALCIUM Routine 05/14/2017 12:40 Results for this PM CDT procedure are in the results section. PHOSPHORUS LEVEL Routine 05/14/2017 12:40 Results for this PM CDT procedure are in the results section. MAGNESIUM LEVEL Routine 05/14/2017 12:40 Results for this PM CDT procedure are in the results section. POTASSIUM LEVEL Routine 05/14/2017 12:40 Results for this PM CDT procedure are in the results section. POC GLUCOSE Routine 05/14/2017 12:06 Results for this PM CDT procedure are in the results section. POC GLUCOSE Routine 05/14/2017 7:43 Results for this AM CDT procedure are in the results section. PARTIAL THROMBOPLASTIN Routine 05/14/2017 5:59 Results for this TIME (PTT) AM CDT procedure are in the results section. POC GLUCOSE Routine 05/14/2017 3:54 Results for this AM CDT procedure are in the results section. ESTIMATED GFR Routine 05/14/2017 12:19 Results for this AM CDT procedure are in the results section. MAGNESIUM LEVEL Routine 05/14/2017 12:19 Results for this AM CDT procedure are in the results section. BASIC METABOLIC PANEL Routine 05/14/2017 12:19 Results for this AM CDT procedure are in the results section. POC GLUCOSE Routine 05/14/2017 12:07 Results for this AM CDT procedure are in the results section. PARTIAL THROMBOPLASTIN Timed 05/14/2017 12:05 Results for this TIME (PTT) AM CDT procedure are in the results section. CBC HEMOGRAM Routine 05/14/2017 12:05 Results for this AM CDT procedure are in the results section. POC GLUCOSE Routine 05/13/2017 7:49 Results for this PM CDT procedure are in the results section. PARTIAL THROMBOPLASTIN Timed 05/13/2017 4:22 Results for this TIME (PTT) PM CDT procedure are in the results section. POC GLUCOSE Routine 05/13/2017 3:39 Results for this PM CDT procedure are in the results section. POC GLUCOSE Routine 05/13/2017 11:29 Results for this AM CDT procedure are in the results section. PARTIAL THROMBOPLASTIN Routine 05/13/2017 10:07 Results for this TIME (PTT) AM CDT procedure are in the results section. POC GLUCOSE Routine 05/13/2017 7:21 Results for this AM CDT procedure are in the results section. POC GLUCOSE Routine 05/13/2017 4:17 Results for this AM CDT procedure are in the results section. PARTIAL THROMBOPLASTIN Timed 05/13/2017 2:57 Results for this TIME (PTT) AM CDT procedure are in the results section. TROPONIN Routine 05/13/2017 12:16 Results for this AM CDT procedure are in the results section. ESTIMATED GFR Routine 05/13/2017 12:16 Results for this AM CDT procedure are in the results section. PHOSPHORUS LEVEL Routine 05/13/2017 12:16 Results for this AM CDT procedure are in the results section. MAGNESIUM LEVEL Routine 05/13/2017 12:16 Results for this AM CDT procedure are in the results section. BASIC METABOLIC PANEL Routine 05/13/2017 12:16 Results for this AM CDT procedure are in the results section. POC GLUCOSE Routine 05/13/2017 12:12 Results for this AM CDT procedure are in the results section. CBC HEMOGRAM Routine 05/13/2017 12:06 Results for this AM CDT procedure are in the results section. POC GLUCOSE Routine 05/12/2017 7:52 Results for this PM CDT procedure are in the results section. US DUPLEX VENOUS LOWER Routine 05/12/2017 7:50 Results for this EXTREMITY BILATERAL PM CDT procedure are in the results section. TROPONIN Timed 05/12/2017 6:26 Results for this PM CDT procedure are in the results section. POC GLUCOSE Routine 05/12/2017 3:51 Results for this PM CDT procedure are in the results section. ANTI XA, LOW MOLECULAR STAT 05/12/2017 12:51 Results for this WEIGHT PM CDT procedure are in the results section. PARTIAL THROMBOPLASTIN STAT 05/12/2017 12:51 Results for this TIME (PTT) PM CDT procedure are in the results section. POC GLUCOSE Routine 05/12/2017 11:43 Results for this AM CDT procedure are in the results section. TROPONIN Timed 05/12/2017 11:29 Results for this AM CDT procedure are in the results section. POC GLUCOSE Routine 05/12/2017 7:56 Results for this AM CDT procedure are in the results section. XR CHEST 1 VW PORTABLE Routine 05/12/2017 5:28 Results for this AM CDT procedure are in the results section. POC GLUCOSE Routine 05/12/2017 5:07 Results for this AM CDT procedure are in the results section. ECG 12-LEAD Routine 05/12/2017 4:33 Results for this AM CDT procedure are in the results section. NC INSERT NON-TUNNEL Routine 05/12/2017 2:34 Bradycardia Results for this CV CATH AM CDT Hypotension, procedure are in unspecified the results hypotension type section. NSTEMI (non-ST elevated myocardial infarction) NC INSERT Routine 05/12/2017 2:29 Bradycardia Results for this CATH,ART,PERCUT,KEISHA AM CDT Hypotension, procedure are in ERM unspecified the results hypotension type section. ESTIMATED GFR Routine 05/12/2017 12:58 Results for this AM CDT procedure are in the results section. TROPONIN Routine 05/12/2017 12:58 Results for this AM CDT procedure are in the results section. IONIZED CALCIUM Routine 05/12/2017 12:58 Results for this AM CDT procedure are in the results section. PHOSPHORUS LEVEL Routine 05/12/2017 12:58 Results for this AM CDT procedure are in the results section. MAGNESIUM LEVEL Routine 05/12/2017 12:58 Results for this AM CDT procedure are in the results section. BASIC METABOLIC PANEL Routine 05/12/2017 12:58 Results for this AM CDT procedure are in the results section. PARTIAL THROMBOPLASTIN Routine 05/12/2017 12:55 Results for this TIME (PTT) AM CDT procedure are in the results section. PROTHROMBIN TIME WITH Routine 05/12/2017 12:55 Results for this INR AM CDT procedure are in the results section. HC COMPLETE BLD COUNT Routine 05/12/2017 12:55 Results for this W/AUTO DIFF AM CDT procedure are in the results section. POC GLUCOSE Routine 05/12/2017 12:22 Results for this AM CDT procedure are in the results section. US CAROTID DUPLEX STAT 05/11/2017 9:23 Results for this BILATERAL PM CDT procedure are in the results section. CV ECHO 2D FOLLOW UP STAT 05/11/2017 8:59 Results for this OR LIMITED STUDY PM CDT procedure are in the results section. ESTIMATED GFR Routine 05/11/2017 8:00 Results for this PM CDT procedure are in the results section. TROPONIN Routine 05/11/2017 8:00 Results for this PM CDT procedure are in the results section. B NATRIURETIC PEPTIDE Routine 05/11/2017 8:00 Results for this PM CDT procedure are in the results section. PARTIAL THROMBOPLASTIN Routine 05/11/2017 8:00 Results for this TIME (PTT) PM CDT procedure are in the results section. PROTHROMBIN TIME WITH Routine 05/11/2017 8:00 Results for this INR PM CDT procedure are in the results section. IONIZED CALCIUM Routine 05/11/2017 8:00 Results for this PM CDT procedure are in the results section. PHOSPHORUS LEVEL Routine 05/11/2017 8:00 Results for this PM CDT procedure are in the results section. MAGNESIUM LEVEL Routine 05/11/2017 8:00 Results for this PM CDT procedure are in the results section. BASIC METABOLIC PANEL Routine 05/11/2017 8:00 Results for this PM CDT procedure are in the results section. HC COMPLETE BLD COUNT Routine 05/11/2017 8:00 Results for this W/AUTO DIFF PM CDT procedure are in the results section. TYPE AND SCREEN Routine 05/11/2017 8:00 Results for this PM CDT procedure are in the results section. POC GLUCOSE Routine 05/11/2017 7:56 Results for this PM CDT procedure are in the results section. after 05/03/2017 Results Echocardiogram complete w contrast and 3D if needed (05/02/2018 4:50 PM) Narrative Performed At [facility] Echocardiography Report Pat.Name:JOAN ABRAMS.ID:[id number] St.Date: 05/02/2018 Refer.MD:JOSE SALGUERO MD Exam Time: 3:38:00 PMStudy Type:Routine Echo Height:60inWeight: 125lb BSA: 1.53 m2 DOBAge:1940,78Y Sex: FEMALEBP:107/52 HR:90 bpm Sonogrphr: CHRIS Hagen FASE Pat. Stat.:OutpatientRoom:[place] [address] Study Status:Final Echo Event ID:[id number] Order ID:[id number] Reason for Study:Myocardial Ischemia/ Infarction Procedures:2D Echo, Colorflow Doppler Race:C SUMMARY: No evidence of [place] FINDINGS: LV: LV size is normal. There is mild concentric LV hypertrophy. LVEF is normal. Overall wall motion is normal. Estimated EFis 65-69% RV: RV size is normal. A pacemaker wire is seen in the RV. RV systolicfunction is normal. LA: LA volume is mildly enlarged. RA: RA volume is normal. A pacemaker wire is seen. AO: Aortic root diameter is normal. SASCHA: No pericardial effusion. AV: No structural AV abnormalities noted. MV: No structural MV abnormalities noted. PV: No structural PV abnormalities noted. TV: No structural TV abnormalities noted. A trace of tricuspid regurgitation Adam: LV relaxation is impaired. LV filling pressure is normal. Other:Estimated PA systolic pressure is 25-30 mmHg, assuming a meanRAP of 5 mmHg. MEASUREMENTS: 2D Parasternal [place] LVOT 1.7 cmLA Ds3.3 cm LVIDd4.1 cmIndex2.7 cm/m Ao An1.8 cm LVIDs2.4 cmAo Rtd 3 cm Index1.9 cm/m LV%fs 41.9 % LV Cqyp060.3 g(87-129) IVSd 1.5 cmRWT0.4 LVPWd0.8 cm LA Sng Plane LA Area 15.4 cm2(8.8-23.4) LA Vol44.4 ml Index29 ml/m LA LngAx 4.5 cm Signed 05/03/2018 10:57 AM Judith Carrillo M.D. Procedure Note Interface, Radiology Results In - 05/03/2018 10:57 AM CDT [facility] Echocardi[facility] Report Pat.Name: JOAN ABRAMS.ID: [id number] .Date: 05/02/2018 Refer.MD: JOSE SALGUERO MD Exam Time: 3:38:00 PM Study Type:Routine Echo Height: 60in Weight: 125lb BSA: 1.53 m2 Age: 8 1940,78Y Sex: FEMALE BP: 107/52 HR: 90 bpm Sonogrphr: CHRIS Hagen FASE Pat. Stat.:Outpatient Room: [place] [address] Study Status:Final Echo Event ID:[id number] Order ID: [id number] Reason for Study:Myocardial Ischemia/ Infarction Procedures:2D Echo, Colorflow Doppler Race: C SUMMARY: No evidence of [place] FINDINGS: LV: LV size is normal. There is mild concentric LV hypertrophy. LV EF is normal. Overall wall motion is normal. Estimated EF is 65-69% RV: RV size is normal. A pacemaker wire is seen in the RV. RV systolic function is normal. LA: LA volume is mildly enlarged. RA: RA volume is normal. A pacemaker wire is seen. AO: Aortic root diameter is normal. SASCHA: No pericardial effusion. AV: No structural AV abnormalities noted. MV: No structural MV abnormalities noted. PV: No structural PV abnormalities noted. TV: No structural TV abnormalities noted. A trace of tricuspid regurgitation Adam: LV relaxation is impaired. LV filling pressure is normal. Other: Estimated PA systolic pressure is 25-30 mmHg, assuming a mean RAP of 5 mmHg. MEASUREMENTS: 2D Parasternal [place] LVOT 1.7 cm LA Ds 3.3 cm LVIDd 4.1 cm Index 2.7 cm/m Ao An 1.8 cm LVIDs 2.4 cm Ao Rtd 3 cm Index 1.9 cm/m LV%fs 41.9 % LV Mass 155.3 g (87-129) IVSd 1.5 cm RWT 0.4 LVPWd 0.8 cm LA Sng Plane LA Area 15.4 cm2 (8.8-23.4) LA Vol 44.4 ml Index 29 ml/m LA LngAx 4.5 cm Signed 05/03/2018 10:57 AM Judith Carrillo M.D. Performing Organization Address [facility] Phone Number [facility] [address] [place] [address] CV pacemaker defib or ilr interrogation (04/02/2018) Narrative Performed At ECG 12 lead (01/01/2018 9:45 AM)Only the most recent of5 resultswithin the time period is included. Ventricular rate 85 [facility] Atrial rate 85 [facility] NC interval 210 [facility] QRSD interval 92 [facility] QT interval 386 [facility] QTC interval 459 [facility] P axis 1 46 [facility] QRS axis 1 35 [facility] T wave axis 29 [facility] EKG impression Electronic atrial pacemaker-In automated [facility] comparison with ECG of 11-JUN-2017 09:17,-No significant change was found- Performing Organization Address [facility] Phone Number [facility] M[facility] [address] [place] [address] CV pacemaker defib or ilr interrogation (01/01/2018) Narrative Performed At CV pacemaker defib or ilr interrogation (06/11/2017) Narrative Performed At XR Chest 2 Vw (06/07/2017 12:23 PM) Narrative Performed At EXAMINATION:XR CHEST 2 VW [facility] CLINICAL HISTORY:I10 Essential (primary) hypertension, s p dual chamber pacemakerevaluate lead placement IMPRESSION: There is a transvenous pacemaker in good position. Heart and mediastinum are normal. Lungs are clear. There is a severe thoracolumbar scoliosis. [id number] Procedure Note Interface, Radiology Results Incoming - 06/07/2017 1:16 PM CDT EXAMINATION: XR CHEST 2 VW CLINICAL HISTORY: I10 Essential (primary) hypertension, s p dual chamber pacemaker evaluate lead placement IMPRESSION: There is a transvenous pacemaker in good position. Heart and mediastinum are normal. Lungs are clear. There is a severe thoracolumbar scoliosis. [id number] Performing Organization Address [facility] Phone Number [facility] [address] [place] [address] XR Chest 1 Vw Portable (05/18/2017 11:10 AM)Only the most recent of2 resultswithin the time period is included. Narrative Performed At EXAMINATION:[facility]ST 1 [facility]Post device placement COMPARISON:05/12/2017 chest IMPRESSION: Placement left subclavian transvenous pacer device. Pacer leads over the right atrium and right ventricle. Cardiac silhouette top normal size. Mild central vascular prominence. Minimal linear atelectasis right base No pneumothorax. No pleural effusion [id number] Procedure Note Interface, Radiology Results Incoming - 05/18/2017 12:22 PM CDT EXAMINATION: XR CHEST 1 VW PORTABLE CLINICAL HISTORY: Post device placement COMPARISON: 05/12/2017 chest IMPRESSION: Placement left subclavian transvenous pacer device. Pacer leads over the right atrium and right ventricle. Cardiac silhouette top normal size. Mild central vascular prominence. Minimal linear atelectasis right base No pneumothorax. No pleural effusion [id number] Performing Organization Address [facility] Phone Number [employer] [address] [place] [address] Estimated GFR (05/18/2017 5:10 AM)Only the most recent of8 resultswithin the time period is included. GFR Non Af Amer 81 mL/min/1.73 m2 [facility] DEPARTMENT OF PATHOLOGY AND GENOMIC MEDICINE GFR Af Amer >90 mL/min/1.73 m2 [facility] DEPARTMENT OF Comment: PATHOLOGY AND GENOMIC Chronic kidney disease: <60 mL/min/1.73m2 MEDICINE Kidney failure: <15 mL/min/1.73m2 The estimated GFR is calculated from the IDMS-traceable Modification of Diet in Renal Disease Equation. The accuracy of the calculation is poor when the creatinine is normal. Calculated values >90 mL/min/1.73m2 are not reported. This equation has not been validated in children (<18 years), women, the elderly (>70 years), or ethnic groups other than Caucasians and Americans. Specimen Plasma specimen Performing Organization Address City/[facility]/Zipcode Phone Number [facility] DEPARTMENT OF PATHOLOGY AND [address] [place] [address] Prothrombin time with INR (05/18/2017 5:10 AM)Only the most recent of3 resultswithin the time period is included. Prothrombin time 13.4 12.0 - 15.0 sec [facility] DEPARTMENT OF PATHOLOGY AND GENOMIC MEDICINE INR 1.0 [facility] DEPARTMENT OF Comment: PATHOLOGY AND GENOMIC The International Normalized Ratio (INR) is a therapeutic MEDICINE monitoring tool for patients who are stable on oral anticoagulant therapy. An INR of 2.0-3.0 is suggested for deep vein thrombosis/pulmonary embolism. Specimen Blood Performing Organization Address City/[facility] Phone Number [facility] DEPARTMENT PATHOLOGY AND [address] [place] [address] CBC with platelet and differential (05/18/2017 5:10 AM)Only the most recent of3 resultswithin the time period is included. WBC 9.20 4.50 - 11.00 k/uL [facility] DEPARTMENT OF PATHOLOGY AND GENOMIC MEDICINE RBC 3.70 (L) 4.20 - 5.50 m/uL [facility] DEPARTMENT OF PATHOLOGY AND GENOMIC MEDICINE HGB 10.9 (L) 12.0 - 16.0 g/dL [facility] DEPARTMENT OF PATHOLOGY AND GENOMIC MEDICINE HCT 35.2 (L) 37.0 - 47.0 % [facility] DEPARTMENT OF PATHOLOGY AND GENOMIC MEDICINE MCV 95.1 82.0 - 100.0 fL [facility] DEPARTMENT OF PATHOLOGY AND GENOMIC MEDICINE MCH 29.5 27.0 - 34.0 pg [facility] DEPARTMENT OF PATHOLOGY AND GENOMIC MEDICINE MCHC 31.0 31.0 - 37.0 g/dL [facility] DEPARTMENT OF PATHOLOGY AND GENOMIC MEDICINE RDW - SD 47.7 37.0 - 55.0 fL [facility] DEPARTMENT OF PATHOLOGY AND GENOMIC MEDICINE MPV 9.8 8.8 - 13.2 fL [facility] DEPARTMENT OF PATHOLOGY AND GENOMIC MEDICINE Platelet count 227 150 - 400 k/uL [facility] DEPARTMENT OF PATHOLOGY AND GENOMIC MEDICINE Nucleated RBC 0.00 /100 WBC [facility] DEPARTMENT OF PATHOLOGY AND GENOMIC MEDICINE Neutrophils 64.0 39.0 - 69.0 % [facility] DEPARTMENT OF PATHOLOGY AND GENOMIC MEDICINE Lymphocytes 28.6 25.0 - 45.0 % [facility] DEPARTMENT OF PATHOLOGY AND GENOMIC MEDICINE Monocytes 5.0 0.0 - 10.0 % [facility] DEPARTMENT OF PATHOLOGY AND GENOMIC MEDICINE Eosinophils 1.7 0.0 - 5.0 % [facility] DEPARTMENT OF PATHOLOGY AND GENOMIC MEDICINE Basophils 0.3 0.0 - 1.0 % [facility] DEPARTMENT OF PATHOLOGY AND GENOMIC MEDICINE Immature granulocytes 0.4Comment: 0.0 - 1.0 % [facility] DEPARTMENT OF "Immature PATHOLOGY AND GENOMIC granulocytes" MEDICINE (promyelocytes, myelocytes, metamyelocytes) Specimen Blood Performing Organization Address City/[facility] Phone Number [facility] DEPARTMENT OF PATHOLOGY AND [address] [place] [phone] [employer] MEDICINE Basic metabolic panel (05/18/2017 5:10 AM)Only the most recent of8 resultswithin the time period is included. Sodium 142 135 - 148 mEq/L [facility] DEPARTMENT OF PATHOLOGY AND GENOMIC MEDICINE Potassium 3.9 3.5 - 5.0 mEq/L [facility] DEPARTMENT OF PATHOLOGY AND GENOMIC MEDICINE Chloride 107 98 - 112 mEq/L [facility] DEPARTMENT OF PATHOLOGY AND GENOMIC MEDICINE CO2 22 (L) 24 - 31 mEq/L [facility] DEPARTMENT OF PATHOLOGY AND GENOMIC MEDICINE Anion gap 13 7 - 15 mEq/L [facility] DEPARTMENT OF PATHOLOGY Comment: AND GENOMIC MEDICINE Starting from December , anion gap calculation no longer incorporates potassium. Please note the change. BUN 22 8 - 23 mg/dL [facility] DEPARTMENT OF PATHOLOGY AND GENOMIC MEDICINE Creatinine 0.7 0.5 - 0.9 mg/dL [facility] DEPARTMENT OF PATHOLOGY AND GENOMIC MEDICINE Glucose 115 (H) 65 - 99 mg/dL [facility] DEPARTMENT OF PATHOLOGY AND GENOMIC MEDICINE Calcium 9.0 8.8 - 10.2 mg/dL [facility] DEPARTMENT OF PATHOLOGY AND GENOMIC MEDICINE Specimen Plasma specimen Performing Organization Address City/[facility] Phone Number [facility] DEPARTMENT OF PATHOLOGY AND [address] [place] [phone] [employer] Cv electrophysiology procedure (05/17/2017 3:06 PM) Narrative Performed At ELECTROPHYSIOLOGY SERVICE OPERATIVE REPORT [facility] PROCEDURE: OPERATION PERFORMED: Implantation dual chamber pacemaker Moderate sedation for 80 min ATTENDING SURGEON: Jose Salguero MD CCEP FELLOW: None ANESTHESIA: Versed, lidocaine [...] brought to the electrophysiology laboratory at the [facility].Informed consent was given by the patient [...] the inferior vena. RIGHT VENTRICULAR LEAD: A7 Slovak peel away sheath was brought to the [...] with fluoroscopy. RIGHT ATRIAL LEAD: A 7 Slovak peel away sheath was brought to the [...] the shoulder below this threshold is encouraged. Performing Organization Address City/State/Zipcode Phone Number [facility] [address] [place] [address] CBC hemogram (05/17/2017 5:15 AM)Only the most recent of5 resultswithin the time period is included. WBC 7.68 4.50 - 11.00 k/uL [facility] DEPARTMENT OF PATHOLOGY AND GENOMIC MEDICINE RBC 3.89 (L) 4.20 - 5.50 m/uL [facility] DEPARTMENT OF PATHOLOGY AND GENOMIC MEDICINE HGB 11.6 (L) 12.0 - 16.0 g/dL [facility] DEPARTMENT OF PATHOLOGY AND GENOMIC MEDICINE HCT 36.6 (L) 37.0 - 47.0 % [facility] DEPARTMENT OF PATHOLOGY AND GENOMIC MEDICINE MCV 94.1 82.0 - 100.0 fL [facility] DEPARTMENT OF PATHOLOGY AND GENOMIC MEDICINE MCH 29.8 27.0 - 34.0 pg [facility] DEPARTMENT OF PATHOLOGY AND GENOMIC MEDICINE MCHC 31.7 31.0 - 37.0 g/dL [facility] DEPARTMENT OF PATHOLOGY AND GENOMIC MEDICINE RDW - SD 46.0 37.0 - 55.0 fL [facility] DEPARTMENT OF PATHOLOGY AND GENOMIC MEDICINE MPV 9.7 8.8 - 13.2 fL [facility] DEPARTMENT OF PATHOLOGY AND GENOMIC MEDICINE Platelet count 243 150 - 400 k/uL [facility] DEPARTMENT OF PATHOLOGY AND GENOMIC MEDICINE Nucleated RBC 0.00 /100 WBC [facility] DEPARTMENT OF PATHOLOGY AND GENOMIC MEDICINE Specimen Blood Performing Organization Address City/[facility] Phone Number [facility] DEPARTMENT OF PATHOLOGY AND [address] [place] [address] Partial thromboplastin time, activated (05/16/2017 5:00 AM)Only the most recent of10 resultswithin the time period is included. PTT 25.2 23.0 - 36.0 sec [facility] DEPARTMENT OF PATHOLOGY Comment: AND GENOMIC MEDICINE PTT therapeutic range for unfractionated heparin is 61.0-112.0 seconds which corresponds to Anti-Xa 0.3-0.7 U/ml. Specimen Blood Performing Organization Address City/[facility] Centercode Phone Number [facility] DEPARTMENT OF PATHOLOGY AND [address] [place] [address] Thyroid stimulating hormone (05/16/2017 4:00 AM) TSH 1.56 0.27 - 4.20 uIU/mL [facility] DEPARTMENT OF PATHOLOGY AND GENOMIC MEDICINE Specimen Plasma specimen Performing Organization Address 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 Performing Organization Address [facility] Centercode Phone Number [facility] [address] [place] [phone] Phosphorus level (05/15/2017 4:50 AM)Only the most recent of5 resultswithin the time period is included. Phosphorus 4.5 2.4 - 4.5 mg/dL [facility] DEPARTMENT OF PATHOLOGY AND GENOMIC MEDICINE Specimen Plasma specimen Performing Organization Address [facility] Centercode Phone Number [facility] DEPARTMENT OF PATHOLOGY AND [address] [place] [address] GENOMIC MEDICINE Magnesium level (05/15/2017 4:50 AM)Only the most recent of6 resultswithin the time period is included. Magnesium 2.4 1.6 - 2.4 mg/dL [facility] DEPARTMENT OF PATHOLOGY AND GENOMIC MEDICINE Specimen Plasma specimen Performing Organization Address [facility] Phone Number [facility] DEPARTMENT OF PATHOLOGY AND [address] [place] [address] GENOMIC MEDICINE Ionized calcium (05/15/2017 4:50 AM)Only the most recent of4 resultswithin the time period is included. pH 7.53 [facility] DEPARTMENT OF PATHOLOGY AND GENOMIC MEDICINE Ionized calcium 1.14 1.11 - 1.32 mmol/L [facility] DEPARTMENT OF PATHOLOGY AND GENOMIC MEDICINE Specimen Plasma specimen Performing Organization Address [facility] Phone Number [facility] DEPARTMENT OF PATHOLOGY AND [address] [place] [address] GENOMIC MEDICINE Potassium level (05/14/2017 12:40 PM) Potassium 3.7 3.5 - 5.0 mEq/L [facility] DEPARTMENT OF PATHOLOGY AND GENOMIC MEDICINE Specimen Plasma specimen Performing Organization Address [facility] Phone Number [facility] DEPARTMENT OF PATHOLOGY AND [address] [place] [address] GENOMIC MEDICINE POC glucose (05/14/2017 12:06 PM)Only the most recent of17 resultswithin the time period is included. POC glucose 107 (H) 65 - 99 mg/dL [facility] DEPARTMENT OF PATHOLOGY AND Comment: GENOMIC MEDICINE [facility] Notified RN Meter ID: [id number] Linux Architect: Linda Chapman Performing Organization Address [facility] Centercode Phone Number [facility] DEPARTMENT OF PATHOLOGY AND [address] [place] [address] GENOMIC MEDICINE Troponin (05/13/2017 12:16 AM)Only the most recent of5 resultswithin the time period is included. Troponin <0.30 0.00 - 0.30 ng/mL [facility] DEPARTMENT OF PATHOLOGY Comment: AND GENOMIC MEDICINE 0.30 - 1.49 ng/mlMay indicate increased risk of acute coronary syndrome. >=1.5 ng/mlConsistent with acute myocardial infarction. The diagnostic value of a single normal or non-diagnostic result is questionable.Serial samples at 2-6 hour intervals are required to rule out acute myocardial injury. Specimen Plasma specimen Performing Organization Address City/State/Zipcode Phone Number [facility] DEPARTMENT OF PATHOLOGY AND [address] [place] [address] [employer] Pv duplex venous lower extremity (05/12/2017 7:50 PM) Narrative Performed At [facility] Vascular Ultrasound Laboratory Lower Extremity Venous Report [address] [place] [address] Pat.Name:JOAN ABRAMS.ID:[id number] .Date: 05/12/2017Refer.MD:HAYDEN SOUSA MD Exam Time: 7:32:00 PMStudy Type:LE Venous DOBAge:1940,77YSex: FEMALE Sonogrphr: Savage Mclean, RVTPat. Stat.:[facility]: BRINDA, CPT - 4: 63732 Echo Event ID:[id number] Order ID:[id number] Reason for Study:NSTEMI History / Clinical:Other,NSTEMI Race: [...] Ultrasound Laboratory Lower Extremity Venous Report [address] [place] [address] Pat.Name: JOAN ABRAMS.ID: [id number] .Date: 05/12/2017 Refer.MD: HAYDEN SOUSA MD Exam Time: 7:32:00 PM Study Type:LE Venous Age: 8 1940,77Y Sex: FEMALE Sonogrphr: Savage Mclean RVT Pat. Stat.:Inpatient Room: [address] Vol: CN, CPT - 4: 53503 Echo Event ID:[id number] Order ID: [id number] Reason for Study:NSTEMI History / Clinical:Other, NSTEMI [...] 05/13/2017 01:44 AM Meño Duenas MD, RPVI Performing Organization Address City/State/Zipcode Phone Number [facility] [address] [place] [address] Anti Xa, low molecular weight (05/12/2017 12:51 PM) Heparin name Lovenox [facility] DEPARTMENT OF PATHOLOGY AND GENOMIC MEDICINE Anti Xa, low molecular 0.92 0.60 - 1.00 U/mL [facility] DEPARTMENT OF weight Comment: PATHOLOGY AND GENOMIC Specimen must be drawn at least 4 hours post dose following a MEDICINE minimum of 3 doses. Therapeutic Range:0.60 - 1.00 U/mL Specimen Blood Performing Organization Address [facility] Centercode Phone Number [facility] DEPARTMENT OF PATHOLOGY AND [address] [place] [address] GENOMIC MEDICINE CENTRAL LINE (05/12/2017 2:34 AM) Narrative Performed At [facility] 05/12/20172:34 AM Central Line Insertion Performed by: BIJAN VOGT Authorized by: BIJAN VOGT Consent: Consent obtained:Verbal and emergent situation Consent given by:Patient and parent Risks discussed:Arterial puncture, incorrect placement, bleeding and infection Alternatives discussed:Delayed treatment and referral [place] protocol: Procedure explained and questions answered to [...] Insert arterial line (05/12/2017 2:29 AM) Narrative Performed At [facility] 05/12/20172:29 AM Arterial Line Insertion [...] Unresponsive Pv carotid duplex (05/11/2017 9:23 PM) Narrative Performed At [facility] Vascular Ultrasound Laboratory Carotid Artery Duplex Report [address] [place] [address] For quality control engineering technician purposes, the categorization of the degree of the stenosis of this exam is based on criteria described in the IAC carotid stenosis grading white paper( www.intersocietal.org/Vascular) and Anais Shaikh., Zuleika Gomez., et al. Carotid artery stenosis: rogers-scale and Doppler US diagnosis--Society of Radiologists in Ultrasound Consensus Conference. Radiology. 2003 Nov; 229(2):340-6. Pat.Name:JOAN ABRAMS.ID:[id number] St.Date: 05/11/2017Refer.MD:HAYDEN SOUSA MD Exam Time: 9:00:00 PMStudy Type:Carotid DOBAge:1940,77YSex: FEMALE Sonogrphr: Saul Sanchez, RVS, CHRIS Pat. Stat.:Inpatient Room:[facility] [id number] TapeVol: ACACIA CPT - 4: 11315 Echo Event ID:[id number] Order ID:[id number] Reason for Study:Evaluate for carotid artery disease. [...] Vascular Ultrasound Laboratory Carotid Artery Duplex Report [address] [address] For quality control engineering technician purposes, the categorization of the degree of the stenosis of this exam is based on criteria described in the IAC carotid stenosis grading white paper( www.intersocietal.org/Vascular) and Anais Shaikh., Ant Gomez, et al. Carotid artery stenosis: rogers-scale and Doppler US diagnosis--Society of Radiologists in Ultrasound Consensus Conference. Radiology. 2003 Nov; 229(2):340-6. Pat.Name: JOAN ABRAMS.ID: [id number] .Date: 05/11/2017 Refer.MD: HAYDEN SOUSA MD Exam Time: 9:00:00 PM Study Type:Carotid Age: 8 1940,77Y Sex: FEMALE Sonogrphr: COSTA Shepherd, CHRIS Pat. Stat.:Inpatient Room: [facility] [id number] Tape Vol: , CPT - 4: 53722 Echo Event ID:[id number] Order ID: [id number] Reason for Study:Evaluate for carotid artery disease. [...] Signed 05/12/2017 04:27 AM Meño Duenas MD, VI Performing Organization Address City/State/Zipcode Phone Number [facility] [address] [place] [address] Echocardiogram 2d limited (05/11/2017 8:59 PM) Narrative Performed At [facility] Echocardiography Report [address] [facility] [address], [place] [address] Pat.Name:JOAN ABRAMS.ID:[id number] .Date: 05/11/2017Refer.MD:HAYDEN SOUSA MD Exam Time: 8:38:00 PMStudy Type:Routine Echo Height:60inWeight: 121lb BSA: 1.51 m2 DOBAge:1940,77Y Sex: FEMALEBP:114/59 HR:57 bpmSonogrphr: CHRIS Santana RVS Pat. Stat.:Inpatient Room:[place] [address] CPT - 4: 32338, [address]Nifpy Status:Final Echo Event ID:[id number] Order ID:[id number] Reason for Study:Myocardial Ischemia/Infarction - Eval of a patient without chest pain but with other features of an ischemic equivalent or laboratory markers indicative of ongoing [place]. Procedures:2D Echo, Colorflow Doppler, Strain, Portable Race:C FINDINGS: LV: LV size is normal. There is mild concentric LV hypertrophy. LVglobal systolic function is normal. Difficult to assess segmentalfunction. Basal and mid segments are hyperdynamic.Bridger is not well visualized and cannot excludeapical [...] RAPof 5 mmHg. MEASUREMENTS: 2D Parasternal [place] LVIDd3.9 cmIndex2.6 cm/m Ao Rtd 2.8 cm Index1.9 cm/m LVIDs2.6 cmLV Iiol401.3 g(87-129) LV%fs 33.3 % LVM Kxrvs810.5 g/m2 IVSd 1.2 cmRWT0.6 LVPWd1.2 cm Signed 05/12/2017 08:40 PM Germain Aranda M.D. Procedure Note Interface, Radiology Results In - 05/12/2017 8:40 PM CDT Echocardiography Report [address] [place] [address] Pat.Name: JOAN ABRAMS Pat.ID: [id number] .Date: 05/11/2017 Refer.MD: HAYDEN SOUSA MD Exam Time: 8:38:00 PM Study Type:Routine Echo Height: 60in Weight: 121lb BSA: 1.51 m2 Age: 8 1940,77Y Sex: FEMALE BP: 114/59 HR: 57 bpm Sonogrphr: CHRIS Santana, RVS Pat. Stat.:Inpatient Room: [place] [address] CPT - 4: 05598, [address] Study Status:Final Echo Event ID:[id number] Order ID: [id number] Reason for Study:Myocardial Ischemia/Infarction - Eval of a patient without chest pain but with other features of an ischemic equivalent or laboratory markers indicative of ongoing [place]. Procedures:2D Echo, Colorflow Doppler, Strain, Portable Race: C FINDINGS: LV: LV size is normal. There is mild concentric LV hypertrophy. LV global systolic function is normal. Difficult to assess segmental function. Basal and mid segments are hyperdynamic. Bridger is not well visualized and cannot exclude [...] of 5 mmHg. MEASUREMENTS: 2D Parasternal [place] LVIDd 3.9 cm Index 2.6 cm/m Ao Rtd 2.8 cm Index 1.9 cm/m LVIDs 2.6 cm LV Mass 159.3 g (87-129) LV%fs 33.3 % LVM Index 105.5 g/m2 IVSd 1.2 cm RWT 0.6 LVPWd 1.2 cm Signed 05/12/2017 08:40 PM Germain Aranda M.D. Performing Organization Address City/State/Zipcode Phone Number [facility] [address] [place] [address] Type and screen (05/11/2017 8:00 PM) ABO grouping A [facility] DEPARTMENT OF PATHOLOGY AND GENOMIC MEDICINE Rh type POS [facility] DEPARTMENT OF PATHOLOGY AND GENOMIC MEDICINE Antibody screen (gel) NEG [facility] DEPARTMENT OF PATHOLOGY AND GENOMIC MEDICINE Specimen Blood Performing Organization Address City/[facility]/Zipcode Phone Number [facility] DEPARTMENT OF PATHOLOGY AND [address] [place] [address] [employer] MEDICINE B natriuretic peptide (05/11/2017 8:00 PM) BNP 58 0 - 100 pg/mL [facility] DEPARTMENT OF PATHOLOGY AND GENOMIC MEDICINE Specimen Blood Performing Organization Address City/[facility]erc[facility] Phone Number [facility] DEPARTMENT OF PATHOLOGY AND [address] [place] [address] [employer] MEDICINE after 05/03/2017 Insurance Payer Benefit Plan / Group Subscriber ID Type Phone Address AETNA MEDICARE AETNA MEDICARE HMO/PPO [facility] xxxxxxxx HMO [phone] [place] [id number]
[2018-05-04 18:19] LABS: Absolute Lymphocytes (CBC) 3.2 K/uL (0.7-4.9); Absolute Monocytes 0.4 K/uL (0.1-1.3); Absolute Neutrophil 4.7 K/uL (1.8-8.0); Basophils % 0.5 % (0-1.3); Eosinophils % 2.4 % (0-4.4); Hematocrit 35.7 % (36.0-45.0); Lymphocytes % 37.4 % (15.3-44.8); MCH 28.4 pg (27.0-35.0); MCV 87.8 fL (80-100); MPV 8.3 fL (7.6-11.3); Monocytes % 5.2 % (3.3-12.3); RBC Red Blood Cell Count 4.07 M/uL (3.86-4.86)
[2018-05-04 18:22] LABS: Protime INR 0.93
[2018-05-04 18:45] LABS: Albumin 3.2 g/dL (3.4-5.0); Bilirubin Direct 0.1 mg/dL (0-0.2); Bilirubin Total 0.3 mg/dL (0.2-1.0); Magnesium 2.5 mg/dL (1.8-2.4); Potassium 3.9 mmol/L (3.5-5.1); Protein, Total 6.6 g/dL (6.4-8.2)
--- NOTE | 2018-05-04 18:52 | RAD REPORT ---
EXAM DESCRIPTION: Raymundo Single View05/04/2018 6:08 pm CLINICAL HISTORY: Chest pain COMPARISON: November 2017 FINDINGS: A few areas of subsegmental atelectasis have developed within the right mid to lower lung . The remainder of the lungs appear clear of acute infiltrate. The heart is mildly enlarged. Pacemaker leads are in place.
--- NOTE | 2018-05-04 20:22 | RAD REPORT ---
EXAM DESCRIPTION: CT - Chest For Pe Angio - 05/04/2018 7:59 pm CLINICAL HISTORY: Chest pain COMPARISON: None. TECHNIQUE: Dynamically enhanced axial 3 mm thick images of the chest were obtained during administra tion of <100> mL Isovue 370 IV contrast. Coronal and oblique reconstruction images were generated and reviewed. Exam utilizes a protocol for optimal evaluation of pulmonary arterial tree. Maximum intensity projections 3D imaging was utilized All CT scans are performed using dose optimization technique as appropriate and may include automated exposure control or mA/KV adjustment according to patient size. FINDINGS: A pulmonary embolus is not seen. A thoracic aortic aneurysm is not noted. A pleural effusion is not seen. A pericardial effusion is not seen. A lung consolidation is not present. IMPRESSION: Negative for a pulmonary embolism.
--- NOTE | 2018-05-04 20:27 | ER ---
Nurse's Notes [facility] Name: Joan Cohn Age: 78 yrs Sex: Female : 1940 Arrival Date: 05/04/2018 Time: 17:05 Bed 24 Private MD: Diagnosis: Chest pain, unspecified;Shortness of breath Presentation: 05/04 17:11 Presenting complaint: Patient states: "I AM HAVING CHEST PAIN AND EARLIER THE PAIN rv RADIATES TO MY LEFT ARM." EMS states: CHEST PAIN AT AROUND 1600. Transition of care: patient was not received from another setting of care. Onset of symptoms was May 04, 2018 at 16:00. Risk Assessment: Do you want to hurt yourself or someone else? Patient reports no desire to harm self or others. Initial Sepsis Screen: Does the patient meet any 2 criteria? No. Patient's initial sepsis screen is negative. Does the patient have a suspected source of infection? No. Patient's initial sepsis screen is negative. Care prior to arrival: None. 17:11 Method Of Arrival: EMS: [facility] rv 17:11 Acuity: MIGUEL 3 rv Triage Assessment: 21:25 General: Appears in no apparent distress. comfortable, Behavior is calm, cooperative. rv Respiratory: Reports shortness of breath at rest Onset: The symptoms/episode began/occurred today, the patient has mild shortness of breath. Historical: - Allergies: 17:19 No Known Allergies; rv - Home Meds: 17:19 levothyroxine oral [Active]; pantoprazole oral oral [Active]; lisinopril 20 mg Oral tab rv [Active]; clopidogrel 75 mg oral tab 1 tab once daily [Active]; amlodipine 5 mg tab 1 tab once daily [Active]; aspirin 81 mg Oral chew 1 tab once daily [Active]; Krill Oil ([place] 3 and 6) oral oral [Active]; calcium carbonate 600 mg (1,500 mg) Oral tab [Active]; biotin oral oral [Active]; pramipexole 1.5 mg oral tab [Active]; atorvastatin 40 mg oral tab [Active]; Namzaric 28-10 mg oral CSpX [Active]; sertraline 50 mg oral tab [Active]; cranberry 500 mg oral cap [Active]; CoQ-10 oral oral [Active]; - PMHx: 17:19 Anxiety; Dementia; Hypertension; GERD; Hypothyroidism; scoliosis; rv - PSHx: 17:19 PACEMAKER; rv - Immunization history:: Adult Immunizations up to date. - Social history:: Smoking status: unknown. - Ebola Screening: : Patient negative for fever greater than or equal to 101.5 degrees Fahrenheit, and additional compatible Ebola Virus Disease symptoms Patient denies exposure to infectious person Patient denies travel to an Ebola-affected area in the 21 days before illness onset. Screenin:25 Abuse screen: Denies threats or abuse. Denies injuries from another. Nutritional rv screening: No deficits noted. Tuberculosis screening: No symptoms or risk factors identified. Fall Risk None identified. Assessment: 19:00 General: Appears in no apparent distress. comfortable, Behavior is calm, cooperative. rv 19:00 Pain: Complains of pain in chest. Neuro: Level of Consciousness is awake, alert, obeys rv commands, Oriented to person, place, time, situation. Cardiovascular: Capillary refill < 3 seconds Rhythm is regular. Respiratory: Airway is patent Respiratory effort is even, Breath sounds are clear. GI: No signs and/or symptoms were reported involving the gastrointestinal system. : No signs and/or symptoms were reported regarding the genitourinary system. EENT: No signs and/or symptoms were reported regarding the EENT system. Derm: Skin is intact. Vital Signs: 17:06 Temp 98.3(TE); sg 17:30 BP 120 / 59 LA Sitting (auto/pedi); Pulse 60; Resp 19; Pulse Ox 98% on 2.0 lpm NC; jp3 19:08 BP 124 / 66 LA Sitting (auto/reg); Pulse 54; Resp 19 S; Pulse Ox 98% on R/A; jp3 20:00 BP 156 / 66 LA Sitting (auto/reg); Pulse 63; Resp 19; Pulse Ox 98% on R/A; jp3 ED Course: 17:05 Patient arrived in ED. sg 17:06 Initial lab(s) drawn, by me, held in ED. Maintain EMS IV. Dressing intact. Site clean \\T\\ sg dry. Gauge \\T\\ site: 20 R wrist. IV is patent. 17:13 Triage completed. rv 17:25 EKG done, by ED staff. jp3 17:33 Bed in low position. Call light in reach. Side rails up X 1. Side rails up X2. Warm jp3 blanket given. Pillow given. Pulse ox on. NIBP on. 18:08 X-ray completed. Portable x-ray completed in exam room. Patient tolerated procedure kw well. 18:08 XRAY CXR (1 view) In Process Unspecified. EDMS 18:35 First set of blood cultures drawn via EMS IV in Right Forearm. jp3 18:38 Chintan Deras PA is PHCP. cp 18:38 Jairo Estrella MD is Attending Physician. cp 19:00 Second set of blood cultures drawn via 23-gauge butterfly needle from Left A/C. jp3 19:24 Blood Culture Sent. jp3 19:24 Blood Culture Adult (2) Sent. jp3 19:59 CT Chest For PE Angio In Process Unspecified. EDMS 19:59 CT completed. Patient tolerated procedure well. Patient moved back from CT. mw3 20:25 Peter Vaughn MD is Hospitalizing Provider. cp 21:25 Arm band placed on left wrist. EKG completed in triage. Results shown to MD. rv 22:15 Troponin I Sent. rv 23:11 No provider procedures requiring assistance completed. IV discontinued, bleeding rv controlled, No redness/swelling at site. Pressure dressing applied. Administered Medications: 20:40 Drug: Aspirin Chewable Tablet 324 mg Route: PO; rv 21:09 Follow up: Response: No adverse reaction rv 20:40 Drug: Lovenox 40 mg Route: Sub-Q; Site: abdomen; rv 21:08 Follow up: Response: No adverse reaction rv Outcome: 20:26 Decision to Hospitalize by Provider. cp 23:03 Discharge ordered by MD. cp 23:11 Discharged to home ambulatory. rv 23:11 Condition: good 23:11 Discharge instructions given to patient, Instructed on discharge instructions, follow up and referral plans. 23:11 Patient left the ED. rv Signatures: Dispatcher [employer] EDMS Mario Tucker, RN RN Coni Humphries Corey, PA PA cp Kavya Sweeney mw3 Kirby Whipple RN RN rv Camron Fuentes jp3
--- NOTE | 2018-05-04 20:27 | EDPHYS ---
Physician Documentation [facility] Name: Joan Cohn Age: 78 yrs Sex: Female : 1940 Arrival Date: 05/04/2018 Time: 17:05 Bed 24 Private MD: ED Physician Jairo Estrella HPI: 05/04 18:50 This 78 yrs old Female presents to ER via EMS with complaints of Shortness Of cp Breath, Chest Pain > 30 y/o. 18:50 The patient has shortness of breath with light activity. Onset: The symptoms/episode cp began/occurred today. 18:50 The patient or guardian reports chest pain that is located primarily in the anterior cp chest wall, left. The pain radiates to the left arm. Associated signs and symptoms: Pertinent negatives: abdominal pain, cough, diaphoresis, dizziness, headache, lower extremity pain, lower extremity swelling, lightheadedness, recent travel, syncope, vomiting. The chest pain is described as a pressure. Duration: The patient or guardian reports a single episode, that is now resolved, started approximately 1600. Historical: - Allergies: 17:19 No Known Allergies; rv - Home Meds: 17:19 levothyroxine oral [Active]; pantoprazole oral oral [Active]; lisinopril 20 mg Oral tab rv [Active]; clopidogrel 75 mg oral tab 1 tab once daily [Active]; amlodipine 5 mg tab 1 tab once daily [Active]; aspirin 81 mg Oral chew 1 tab once daily [Active]; Krill Oil ([place] 3 and 6) oral oral [Active]; calcium carbonate 600 mg (1,500 mg) Oral tab [Active]; biotin oral oral [Active]; pramipexole 1.5 mg oral tab [Active]; atorvastatin 40 mg oral tab [Active]; Namzaric 28-10 mg oral CSpX [Active]; sertraline 50 mg oral tab [Active]; cranberry 500 mg oral cap [Active]; CoQ-10 oral oral [Active]; - PMHx: 17:19 Anxiety; Dementia; Hypertension; GERD; Hypothyroidism; scoliosis; rv - PSHx: 17:19 PACEMAKER; rv - Immunization history:: Adult Immunizations up to date. - Social history:: Smoking status: unknown. - Ebola Screening: : Patient negative for fever greater than or equal to 101.5 degrees Fahrenheit, and additional compatible Ebola Virus Disease symptoms Patient denies exposure to infectious person Patient denies travel to an Ebola-affected area in the 21 days before illness onset. ROS: 19:00 Constitutional: Negative for body aches, chills, fever, poor PO intake. cp 19:00 Eyes: Negative for injury, pain, redness, and discharge. cp 19:00 ENT: Negative for drainage from ear(s), ear pain, sore throat, difficulty swallowing, difficulty handling secretions. 19:00 Cardiovascular: Positive for chest pain, Negative for edema, palpitations. 19:00 Respiratory: Positive for dyspnea on exertion, shortness of breath, on exertion. Negative for cough, wheezing. 19:00 Abdomen/GI: Negative for abdominal pain, nausea, vomiting, and diarrhea, constipation, black/tarry stool, rectal bleeding. 19:00 Back: Negative for pain at rest, pain with movement, radiated pain. 19:00 : Negative for urinary symptoms. 19:00 Skin: Negative for cellulitis, rash. 19:00 Neuro: Negative for altered mental status, headache, syncope, near syncope, weakness. 19:00 All other systems are negative. Exam: 19:05 Constitutional: The patient appears in no acute distress, alert, awake, cp non-diaphoretic, non-toxic, well developed, well nourished. 19:05 Head/Face: Normocephalic, atraumatic. Eyes: Pupils equal round and reactive to light, cp extra-ocular motions intact. Lids and lashes normal. Conjunctiva and sclera are non-icteric and not injected. Cornea within normal limits. Periorbital areas with no swelling, redness, or edema. ENT: Nares patent. No nasal discharge, no septal abnormalities noted. Tympanic membranes are normal and external auditory canals are clear. Oropharynx with no redness, swelling, or masses, exudates, or evidence of obstruction, uvula midline. Mucous membranes moist. 19:05 Neck: External neck: is normal, ROM/movement: is normal, is supple, without pain, no range of motions limitations, no nuchal rigidity. 19:05 Chest/axilla: Inspection: normal, Palpation: is normal, no crepitus, no tenderness. 19:05 Cardiovascular: Rate: normal, Rhythm: regular, Pulses: Pulses are 2+ in right radial artery and left radial artery. Heart sounds: murmur, not appreciated, Edema: is not appreciated, JVD: is not appreciated. 19:05 Respiratory: the patient does not display signs of respiratory distress, Respirations: normal, no use of accessory muscles, no retractions, no splinting, no tachypnea, labored breathing, is not present, Breath sounds: are clear throughout, no decreased breath sounds, no stridor, no wheezing. 19:05 Abdomen/GI: Inspection: abdomen appears normal, Bowel sounds: active, all quadrants, Palpation: abdomen is soft and non-tender, in all quadrants, rebound tenderness, is not appreciated, voluntary guarding, is not appreciated, involuntary guarding, is not appreciated. 19:05 Back: pain, is absent, ROM is normal. 19:05 Musculoskeletal/extremity: Exam is negative for calf tenderness, edema, injury. 19:05 Skin: cellulitis, is not appreciated, no rash present. 19:05 Neuro: Orientation: to person, place \T\ time. Mentation: lucid, able to follow commands, Cerebellar function: is grossly normal, Motor: moves all fours, strength is normal, Sensation: no obvious gross deficits. Vital Signs: 17:06 Temp 98.3(TE); sg 17:30 BP 120 / 59 LA Sitting (auto/pedi); Pulse 60; Resp 19; Pulse Ox 98% on 2.0 lpm NC; jp3 19:08 BP 124 / 66 LA Sitting (auto/reg); Pulse 54; Resp 19 S; Pulse Ox 98% on R/A; jp3 20:00 BP 156 / 66 LA Sitting (auto/reg); Pulse 63; Resp 19; Pulse Ox 98% on R/A; jp3 MDM: 18:38 Patient medically screened. cp 19:00 Differential diagnosis: Chronic Obstructive Pulmonary Disease abnormal EKG, acute cp myocardial infarction, pleurisy, pneumonia, pneumothorax, pneumonia, Pneumothorax Pulmonary Embolism. 20:15 Physician consultation: Peter Vaughn MD was called at 20:15, was contacted at 20:15, cp regarding admission, to the telemetry unit. patient's condition, and will see patient in ED. 20:30 Data reviewed: vital signs, nurses notes, lab test result(s), EKG, radiologic studies, cp CT scan, plain films, and as a result, I will admit patient. 21:40 ED course: Patient evaluated by DR Wilburn in the ED and recommends repeat EKG and cp troponin. Patient stable for discharge and outpatient f/u if negative. 05/04 17:45 Order name: Blood Culture Adult (2) ma 05/04 17:45 Order name: BMP; Complete Time: 18:51 ma 05/04 18:53 Interpretation: Normal except: CL 110; GLUC 114; BUN 26; GFR 53; CA 8.3. 05/04 17:45 Order name: CBC with Diff; Complete Time: 18:51 ma 05/04 18:51 Interpretation: Normal except: HGB 11.5; HCT 35.7. 05/04 17:45 Order name: Hepatic Function; Complete Time: 18:51 ma 05/04 18:54 Interpretation: Normal except: ALB 3.2; A/G 0.9. 05/04 17:45 Order name: Lipase; Complete Time: 18:51 ma 05/04 17:45 Order name: Magnesium; Complete Time: 18:51 ma 05/04 17:45 Order name: NT PRO-BNP; Complete Time: 18:51 ma 05/04 17:45 Order name: PT-INR; Complete Time: 18:51 ma 05/04 17:45 Order name: Troponin (emerg Dept Use Only); Complete Time: 18:51 ma 05/04 18:51 Interpretation: TROPED < 0.02; Reviewed. 05/04 17:46 Order name: Blood Culture [facility] 05/04 19:47 Order name: Urine Microscopic Only; Complete Time: 23:02 05/04 23:02 Interpretation: Normal except: UWBC 5-10; URBC 20-50. 05/04 20:24 Order name: Urine Dipstick--Ancillary (enter results); Complete Time: 23:02 2 05/04 23:02 Interpretation: Normal except: UBLD 3+; UPROT 1+; UESTR TRACE. 05/04 21:42 Order name: Troponin I 05/04 22:52 Order name: Troponin I; Complete Time: 23:02 [facility] 05/04 17:45 Order name: XRAY CXR (1 view); Complete Time: 18:53 ma 05/04 18:53 Interpretation: Report review. 05/04 17:45 Order name: EKG; Complete Time: 17:46 ma 05/04 17:45 Order name: Cardiac monitoring; Complete Time: 18:56 ma 05/04 17:45 Order name: EKG - Nurse/Tech; Complete Time: 18:56 ma 05/04 17:45 Order name: IV Saline Lock; Complete Time: 18:53 ma 05/04 17:45 Order name: Labs collected and sent; Complete Time: 18:53 ma 05/04 17:45 Order name: O2 Per Protocol; Complete Time: 18:53 ma 05/04 17:45 Order name: O2 Sat Monitoring; Complete Time: 18:53 ma 05/04 17:45 Order name: Urine Dipstick-Ancillary (obtain specimen); Complete Time: 19:49 ma 05/04 19:24 Order name: CT Chest For PE Angio; Complete Time: 20:25 cp 05/04 19:43 Order name: Diet Heart Healthy: may feed after CT chest; Complete Time: 19:43 cp 05/04 21:42 Order name: EKG; Complete Time: 21:43 cp 05/04 21:42 Order name: EKG - Nurse/Tech; Complete Time: 22:15 cp Administered Medications: 20:40 Drug: Aspirin Chewable Tablet 324 mg Route: PO; rv 21:09 Follow up: Response: No adverse reaction rv 20:40 Drug: Lovenox 40 mg Route: Sub-Q; Site: abdomen; rv 21:08 Follow up: Response: No adverse reaction rv Disposition: 05/04/18 23:03 Discharged to Home. Impression: Chest pain, unspecified, Shortness of breath. - Condition is Stable. - Discharge Instructions: Nonspecific Chest Pain, Shortness of Breath, Aspirin and Your Heart. - Medication Reconciliation Form, Thank You Letter, Antibiotic Education, Prescription Opioid Use form. - Follow up: Private Physician; When: 2 - 3 days; Reason: Recheck today's complaints. - Problem is new. - Symptoms are resolved. Addendum: 05/06/2018 11:25 Co-signature as Attending Physician, Jairo Estrella MD I agree with the assessment and w a plan of care. Signatures: Dispatcher [employer] EDVA Chintan Deras PA PA cp Appiah, William, MD MD wa Vicente, Ronaldo RN RN rv Corrections: (The following items were deleted from the chart) 05/04 18:53 18:51 Normal except: CL 110; GLUC 114; BUN 26; GFR 53. cp cp 20:30 20:26 Hospitalization Ordered by Peter Vaughn MD for Observation. Preliminary cp diagnosis is Chest pain, unspecified. Bed requested for Telemetry/MedSurg (observation). Status is Observation. Condition is Stable. Problem is new. Symptoms are resolved. UTI on Admission? No. cp 23:03 20:30 05/04/2018 20:26 Hospitalization Ordered by Peter Vaughn MD for Observation. cp Preliminary diagnosis is Chest pain, unspecified; Shortness of breath. Bed requested for Telemetry/MedSurg (observation). Status is Observation. Condition is Stable. Problem is new. Symptoms are resolved. UTI on Admission? No. cp 23:11 23:03 05/04/2018 23:03 Discharged to Home. Impression: Chest pain, unspecified; rv Shortness of breath. Condition is Stable. Forms are Medication Reconciliation Form, Thank You Letter, Antibiotic Education, Prescription Opioid Use. Follow up: Private Physician; When: 2 - 3 days; Reason: Recheck today's complaints. Problem is new. Symptoms are resolved. cp
[2018-05-04] MEDS ORDERED: ENOXAPARIN 40 MG/0.4 ML SQ ONE (20:48)
[2018-05-04] MEDS ORDERED: ASPIRIN 81 MG CHEWABLE TABLET ONE (20:48)
[2018-05-04 21:45] LABS: Urine Blood 3+ (NEG); Urine Glucose NEGATIVE (NEG); Urine Protein 1+ (NEG)
[2018-05-04 21:55] LABS: Urine Amorphous Sediment 1+ /HPF (NONE SEEN); Urine Bacteria <20 /HPF (<20); Urine Culture Reflex Order REFLEXED; Urine RBC 20-50 /HPF (NONE SEEN)
[2018-05-04 23:16] VITALS: TEMP 98.3
[2018-05-04 23:17] VITALS: O2SAT 98
[2018-05-04 23:19] VITALS: BP 156/66
--- NOTE | 2018-05-05 05:36 | P.SSS ---
Patient History Date of Service: 05/04/18 Reason for admission: Chest pain History of Present Illness: Ms Cohn is a 78-year-old woman with history of sick sinus syndrome status post pacemaker placement, hypertension, hypothyroidism, who came to the ER complaining of chest pain. The pain was in substernal area, described it as dull , radiated to left shoulder, concern though lasting for about 20 min. The patient is in the room with her daughter, who is her caregiver states that the patient is an continue stress due to family issues. EKG shows sinus rhythm at about [address] abnormality. Initial troponin I is negative. At time my examination the patient was chest pain-free, her vital signs were stable. Allergies No Known Allergies Allergy (Verified 04/14/17 21:46) Home medications list reviewed: Yes Home Medications: Baclofen 10 mg PO TIDP PRN 04/15/17 Diclofenac Potassium 50 mg PO TIDP PRN 04/15/17 Gabapentin [Gralise] 300 mg PO BEDTIME 04/15/17 LORazepam [Ativan*] 0.5 mg PO PRN PRN 04/15/17 Pramipexole [Mirapex*] 0.5 mg PO BEDTIME 04/15/17 clonazePAM [Clonazepam] 0.5 mg PO BIDP PRN 04/15/17 Levothyroxine [Synthroid*] 75 mcg PO [id number] 04/16/17 Lisinopril 10 mg PO DAILY 04/16/17 Pantoprazole [Protonix Tab*] 40 mg PO DAILY 04/16/17 Sertraline [Zoloft*] 25 mg PO DAILY 04/16/17 - Past Medical/Surgical History Diabetic: No -: chronic back pain -: hypothyroidism -: GERD -: anxiety -: scoliosis -: HTN -: Sick sinus syndrome -: knee surgery -: thyroidectomy -: Pacemaker placement - Family History Father -: Heart disease, GI disease - Social History Smoking Status: Never smoker Alcohol use: No CD- Drugs: No Caffeine use: Yes Place of Residence: Home Review of Systems 10-point ROS is otherwise unremarkable Physical Examination - Vital Signs Temperature: 98.3 F Blood Pressure: 156/66 Pulse: 63 Respirations: 19 - Physical Exam General: Alert, In no apparent distress HEENT: Atraumatic, PERRLA, Mucous membr. moist/pink, EOMI, Sclerae nonicteric Neck: Supple, 2+ carotid pulse no bruit, No LAD, Without JVD or thyroid abnormality Respiratory: Clear to auscultation bilaterally, Normal air movement Cardiovascular: Regular rate/rhythm, Normal S1 S2 Gastrointestinal: Normal bowel sounds, No tenderness Musculoskeletal: No tenderness Integumentary: No rashes Neurological: Normal speech, Normal strength at 5/5 x4 extr, Normal tone, Normal affect Lymphatics: No axilla or inguinal lymphadenopathy - Studies Laboratory Data (last 24 hrs) 05/04/18 22:00: Troponin I < 0.02 05/04/18 17:30: PT 11.0, INR 0.93 05/04/18 17:30: WBC 8.5, Hgb 11.5 L, Hct 35.7 L, Plt Count 299 05/04/18 17:30: Sodium 143, Potassium 3.9, BUN 26 H, Creatinine 1.00, Glucose 114 H, Magnesium 2.5 H, Total Bilirubin 0.3, AST 20, ALT 27, Alkaline Phosphatase 59, Lipase 206 - Diagnosis (Problem(s)) (1) Atypical chest pain Status: Acute (2) Hypothyroidism Onset Date: 04/16/17 Status: Acute Qualifiers: Hypothyroidism type: unspecified Qualified Code(s): E03.9 - Hypothyroidism , unspecified (3) Pacemaker Status: Acute Treatment Summary: The patient came to the ED complaining of chest pain, she has serial troponin I x 2, which were negative EKG without changes, chest pain resolved before arrived to ED. In the previous admission she had a NM stress test done, which shows not stress induced ischemia, and also did not refill any fixed defect. Echocardiogram since 3 weeks ago also showed normal LV function with EF estimated at 77% without any wall motion abnormality. At this point there is no sign of acute coronary syndrome, and the patient is hemodynamically stable. 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 She will be discharged in stable condition. - Disposition Disposition: ROUTINE DISCHARGE Condition: GOOD Followup: Unknown,U [Primary Care Provider] - Prvt As Needed Diet: AHA Activity: Ad napoleon
--- NOTE | 2018-05-05 06:28 | EKG ---
Test Date: 2018-05-04 Test Time: 21:59:51 Police Lieutenant: MEASUREMENT RESULTS: Intervals: Rate: 66 WI: 170 QRSD: 96 QT: 422 QTc: 442 [place]: P: 46 WI: 170 QRS: 60 T: 47 INTERPRETIVE STATEMENTS: Normal sinus rhythm Normal ECG Compared to ECG 05/04/2018 17:25:37 Myocardial infarct finding no longer present Electronically Signed On 05-05-18 06:27:59 CDT by Giovanny Ojeda
--- NOTE | 2018-05-05 06:30 | EKG ---
Test Date: 2018-05-04 Test Time: 17:25:37 Certified Welding Inspector: CANDY MEASUREMENT RESULTS: Intervals: Rate: 64 MI: 162 QRSD: 92 QT: 414 QTc: 427 [place]: P: 43 MI: 162 QRS: 5 T: 19 INTERPRETIVE STATEMENTS: Normal sinus rhythm Cannot rule out Inferior infarct, age undetermined Abnormal ECG Compared to ECG 12/02/2017 08:07:57 No significant changes Electronically Signed On 05-05-18 06:30:09 CDT by Giovanny Ojeda
== END 2018-05-04 23:11 | disposition home or self-care (01) ==
LOC: ER 17:01 → UNDOADMOB 20:26 → ERHOLD 20:26
DX: R07.89 Other chest pain (principal); Z95.0 Presence of cardiac pacemaker; I10 Essential (primary) hypertension; E03.9 Hypothyroidism, unspecified; M54.9 Dorsalgia, unspecified; G89.29 Other chronic pain; K21.9 Gastro-esophageal reflux disease without esophagitis; F41.9 Anxiety disorder, unspecified; M41.9 Scoliosis, unspecified; F03.90 Unspecified dementia, unspecified severity, without behavioral disturbance, psychotic disturbance, mood disturbance, and anxiety; Z79.02 Long term (current) use of antithrombotics/antiplatelets; Z79.82 Long term (current) use of aspirin
CPT/HCPCS: 36415; 71045; 71275; 80048; 80076; 83690; 83735; 83880; 84484 ×2; 85025; 85610; 87040 ×2; 87086; 87088; 93005 ×2; 96372; 99284; J1650; Q9967; 81003; 81015

== ENCOUNTER 2018-12-11 20:41 | Observation (INO) | payer OTHER ==
--- OUTSIDE RECORDS SUMMARY | 2018-12-11 20:44 | XMS REPORT | Continuity of Care Document ---
:1940 Author Organization Interface Problems Problem Status Onset Date Classification Date Comments Source Reported Medications Medication Details Route Status Patient Ordering Order Source Instructions Provider Date Allergies, Adverse Reactions, Alerts Substance Category Reaction Severity Reaction Status Date Comments Source type Reported Immunizations Immunization Date Given Site Status Last Updated Comments Source Results Order Results Value Reference Date Interpretation Comments Source Name Range Vital Signs Vital Sign Value Date Comments Source Encounters Location Location Encounter Encounter Reason Attending ADM DC Status Source Details Type Number For Provider Date Date Visit Outpatient [id number] GL[facility] 10/29 [facility] [place] Outpatient [id number] GLENN 04/15 [place] [id number] [place] Procedures Procedure Code Date Perfomer Comments Source
--- OUTSIDE RECORDS SUMMARY | 2018-12-11 20:44 | XMS REPORT | Clinical Summary ---
:1940 Author Organization [facility] Address [address] [place] [address] Care Team Providers Name Role Phone Jairo Landon MD Primary Care Provider Allergies No Known Allergies Medications Medication Sig Dispensed Refills Start Date End Date Status sertraline (ZOLOFT) Take 150 mg by 0 02/10/2017 Active 25 MG tablet mouth daily. pramipexole Take 1.5 mg by 0 04/27/2017 Active (MIRAPEX) 1.5 MG mouth daily. tablet pantoprazole Take 40 mg by 0 03/27/2017 Active (PROTONIX) 40 MG EC mouth daily. tablet levothyroxine Take 75 mcg by 0 Active (SYNTHROID, mouth daily. LEVOXYL) 75 mcg tablet levothyroxine Take 88 mcg by 0 04/13/2017 Active (SYNTHROID, mouth daily. LEVOXYL) 88 mcg tablet omega Take by mouth. 0 Active 0-vdo-phm-fish oil 100-160-1,000 mg capsule traMADol (ULTRAM) as needed. 0 11/16/2017 Active 50 mg tablet aspirin (ECOTRIN) Take 81 mg by 0 Active 81 MG enteric mouth daily. coated tablet memantine-donepezil Take by mouth. 0 Active (NAMZARIC) 28-10 mg capsule,sprinkle,ER 24hr ubidecarenone (CO Take by mouth. 0 Active Q-10 ORAL) amLODIPine Take 1 tablet 30 tablet 11 01/01/2018 01/01/2019 Active (NORVASC) 5 mg (5 mg total) tablet by mouth daily. lisinopril Take 1 tablet 90 tablet 3 01/09/2018 01/09/2019 Active (PRINIVIL,ZESTRIL) (20 mg total) 20 mg tablet by mouth daily. cetirizine (ZyrTEC) Take 10 mg by 0 Active 10 MG tablet mouth daily. vit B comp Take 1 tablet 0 Active no.9-vwiev-K-biotin by mouth (NEPHRO-MARY LOU RX) daily. 1-60-300 mg-mg-mcg tablet lisinopril Take 20 mg by 0 01/09/2018 Discontinued (PRINIVIL,ZESTRIL) mouth daily. 10 mg tablet memantine (NAMENDA) Take 5 mg by 0 05/03/2017 01/01/2018 Discontinued 5 MG tablet mouth daily. diazePAM (VALIUM) Take 10 mg by 0 04/19/2017 01/01/2018 Discontinued 10 MG tablet mouth daily. atorvastatin Take 1 tablet 90 tablet 3 11/30/2017 11/30/2018 (LIPITOR) 40 MG (40 mg total) tablet by mouth daily. clopidogrel Take 1 tablet 30 tablet 11 11/30/2017 11/30/2018 (PLAVIX) 75 mg (75 mg total) tablet by mouth daily. cefpodoxime Take 1 tablet 20 tablet 0 09/10/2018 09/20/2018 (VANTIN) 200 MG (200 mg total) tablet by mouth 2 (two) times a day for 10 days. tamsulosin (FLOMAX) Take 1 capsule 5 capsule 0 09/10/2018 09/15/2018 0.4 mg capsule (0.4 mg total) by mouth daily for 5 days. traMADol (ULTRAM) Take 1 tablet 9 tablet 0 09/10/2018 09/13/2018 50 mg tablet (50 mg total) by mouth every 8 (eight) hours as needed for moderate pain for up to 3 days. ondansetron Take 1 tablet 20 tablet 0 09/10/2018 09/15/2018 (ZOFRAN) 4 MG (4 mg total) tablet by mouth every 6 (six) hours for 5 days. Active Problems Problem Noted Date Cardiac [...] Encounters Date Type Specialty Care Team Description 09/10/2018 Emergency Emergency Medicine Rehrer, Prabhu Renal calculus, left ( Primary Dx); DO Yuriy Hematuria, unspecified type; Acute left flank pain 04/02/2018 Office Visit Cardiology Jose Salguero Bradycardia (Primary Dx) ; MD Luisito Dyspnea on exertion 04/02/2018 Orders Only Cardiology Jose Salguero MD 01/09/2018 Refill Cardiology Jose Salguero Med Refill MD Luisito 01/01/2018 Office Visit Cardiology Jose Salguero Bradycardia (Primary Dx) MD Luisito 01/01/2018 Orders Only Cardiology Jose Salguero MD after 12/10/2017 Family History Relation Name Status Comments Father Mother Social History Tobacco Use Types Packs/Day Years Used Date Never Smoker Smokeless Tobacco: Never Used Alcohol Use Drinks/Week oz/Week Comments No Sex Assigned at Date Recorded Not on file Job Start Date Occupation Industry Not on file Not on file Not on file Travel History Travel Start Travel End No recent travel history available. Last Filed Vital Signs Vital Sign Reading Time Taken Blood Pressure 150/70 09/10/2018 5:38 PM [employer] Pulse 80 09/10/2018 5:38 PM [employer] Temperature 36.6 C (97.8 F) 09/10/2018 1:50 PM [employer] Respiratory Rate 18 09/10/2018 5:38 PM [employer] Oxygen Saturation 100% 09/10/2018 5:38 PM [employer] Inhaled Oxygen Concentration - - Weight 61.2 kg (135 lb) 04/02/2018 11:17 AM CDT Height 154.9 cm (5' 1") 09/10/2018 1:49 PM [employer] Body Mass Index 25.51 04/02/2018 11:17 AM CDT Plan of Treatment Date Type Specialty Care Team Description 04/01/2019 Office Visit Cardiology Jose Salguero MD [address] [facility] [address] [place] [address] Health Maintenance Due Date Last Done Comments SHINGLES VACCINES (#1) 1989 65+ PNEUMOCOCCAL VACCINE (1 of 2 - PCV13) 2004 PNEUMOCOCCAL POLYSACCHARIDE VACCINE AGE 65 AND OVER 2004 INFLUENZA VACCINE 04/10/2019 Implants Implanted Type Area Oracle Engineer Device Shelf Model / Identifier Expiration Serial / Date Lot Pacemaker Cyber Security Instructor Dr Fenton 2chmbr W/ Is-1 Uni/Bi Conn Advisa - [id number] - [id number] Cardiac N/A: [employer] 10/07/2018 [id number] / Implanted: Qty: 1 on 05/17/2017 by Jose Salguero MD Pacemaker N/A CARDIAC RHYTHM [id number] / Generators DISEASE MGMT [id number] Lead, Pacemaker Atrial And Ventricular 58 Centimeter Capsure Fix Novus System - [id number] - [id number] Cardiac Pacing N/A: [employer] [facility] 01/18/2019 [id number] / Implanted: Qty: 1 on 05/17/2017 by Jose Salguero MD Leads or N/A [employer] [id number] / Electrodes or [id number] Accessories Lead, Pacemaker Bipolar Fix Forming Atrial And Ventricular Steroid Eluting 52 Centimeter Capsure Fix Novus - [id number] - [id number] Cardiac Pacing N/A: [employer] [facility] 02/13/2019 [id number] / Implanted: Qty: 1 on 05/17/2017 by Jsoe Salguero MD Leads or N/[employer] [id number] / Electrodes or [id number] Accessories Procedures Procedure Name Priority Date/Time Associated Comments Diagnosis ED REFERRAL TO [facility] Routine 09/10/2018 4:50 CONGREGATIONAL PHYSICIAN PM [employer] ORGANIZATION CT RENAL STONE PROTOCOL STAT 09/10/2018 3:53 Results for this PM [employer] procedure are in the results section. ESTIMATED GFR STAT 09/10/2018 3:35 Results for this PM [employer] procedure are in the results section. AMYLASE LEVEL STAT 09/10/2018 3:35 Results for this PM [employer] procedure are in the results section. LIPASE LEVEL STAT 09/10/2018 3:35 Results for this PM [employer] procedure are in the results section. COMPREHENSIVE METABOLIC STAT 09/10/2018 3:35 Results for this PANEL PM [employer] procedure are in the results section. HC COMPLETE BLD COUNT STAT 09/10/2018 3:35 Results for this W/AUTO DIFF PM [employer] procedure are in the results section. URINALYSIS SCREEN AND Routine 09/10/2018 2:50 Results for this MICROSCOPY, WITH REFLEX PM [employer] procedure are in TO CULTURE the results section. GRAM STAIN Routine 09/10/2018 2:50 Results for this PM [employer] procedure are in the results section. URINE CULTURE Routine 09/10/2018 2:50 Results for this PM [employer] procedure are in the results section. ECHOCARDIOGRAM 2D Routine 05/02/2018 4:50 Results for this COMPLETE W MMODE PM CDT procedure are in SPECTRAL COLOR DOPPLER the results (51010) section. CV PACEMAKER DEFIB ILR Routine 04/02/2018 INTERROGATION ECG 12-LEAD Routine 01/01/2018 9:45 Bradycardia Results for this AM CDT procedure are in the results section. CV PACEMAKER DEFIB ILR Routine 01/01/2018 INTERROGATION after 12/10/[address] Renal Stone Protocol (09/10/2018 3:53 PM [employer]) Narrative Performed At EXAMINATION:CT RENAL STONE PROTOCOL RADIANT CLINICAL HISTORY:Hematuriaunknown cause TECHNIQUE: Multiple axial images of the abdomen and pelvis were obtained without intravenous administration of iodinated contrast. Sagittal and coronal computerized reformatted images were also obtained. The lack of intravenous contrast reduces the sensitivity of detecting solid organ disease.Automatic exposure control and iterative reconstruction techniques used to reduce dose. COMPARISON:None. FINDINGS: 0.9 cm stone is present in the left renal pelvis. Multiple 1 to 2 mm nonobstructing calyceal calcifications are present bilaterally. There is no evidence of hydronephrosis Fatty infiltration liver The gallbladder, spleen, pancreas, adrenals are within normal limits No significant lymphadenopathy free fluid present The small bowel: Diverticulosis in the colon without evidence of diverticulitis Pelvis: No significant lymphadenopathy, solid masses or free fluid present Age related changes are present throughout the bony structures without evidence of a suspicious focal lesion. Atelectasis in the lung bases IMPRESSION: 0.9 cm nonobstructing stone in the left renal pelvis with multiple other smaller 1 to 2 mm nonobstructing calyceal calcifications bilaterally [facility]-[id number] Procedure Note Hm Interface, Radiology Results Incoming - 09/10/2018 3:58 PM [employer] EXAMINATION: CT RENAL STONE PROTOCOL CLINICAL HISTORY: Hematuria unknown cause TECHNIQUE: Multiple axial images of the abdomen and pelvis were obtained without intravenous administration of iodinated contrast. Sagittal and coronal computerized reformatted images were also obtained. The lack of intravenous contrast reduces the sensitivity of detecting solid organ disease.Automatic exposure control and iterative reconstruction techniques used to reduce dose. COMPARISON: None. FINDINGS: 0.9 cm stone is present in the left renal pelvis. Multiple 1 to 2 mm nonobstructing calyceal calcifications are present bilaterally. There is no evidence of hydronephrosis Fatty infiltration liver The gallbladder, spleen, pancreas, adrenals are within normal limits No significant lymphadenopathy free fluid present The small bowel: Diverticulosis in the colon without evidence of diverticulitis Pelvis: No significant lymphadenopathy, solid masses or free fluid present Age related changes are present throughout the bony structures without evidence of a suspicious focal lesion. Atelectasis in the lung bases IMPRESSION: 0.9 cm nonobstructing stone in the left renal pelvis with multiple other smaller 1 to 2 mm nonobstructing calyceal calcifications bilaterally [facility]-[id number] Performing Organization Address [facility] Phone Number [facility] [address] [place] [address] Estimated GFR (09/10/2018 3:35 PM [employer]) Estimated GFR 70 mL/min/1.73 m2 [facility] Comment: HOSPITAL CatergoryUnitsInterpretation G1 >=90 Normal or high G2 60-89Mildly decreased [id number] to moderately decreased P9t12-32Ahmzgmrghr to severely decreased G4 15-29Severely decreased G5 <15Kidney failure The eGFR was calculated using the Chronic Kidney Disease Epidemiology Collaboration (CKD-EPI) equation. Interpretation is based on recommendations of the National Kidney Foundation-Kidney Disease Outcomes Quality Initiative (NKF-KDOQI) published in 2014. Specimen Plasma specimen Performing Organization Address City/[facility]/Zipcode Phone Number [facility] DEPARTMENT OF PATHOLOGY AND [address] [place] [phone] GENOMIC MEDICINE [address] [address] CBC with platelet and differential (09/10/2018 3:35 PM [employer]) WBC 14.02 (H) 4.50 - 11.00 k/uL [facility] RBC 4.68 4.20 - 5.50 m/uL [facility] HGB 12.9 12.0 - 16.0 g/dL [facility] HCT 42.0 37.0 - 47.0 % [facility] MCV 89.7 82.0 - 100.0 fL [facility] MCH 27.6 27.0 - 34.0 pg [facility] MCHC 30.7 (L) 31.0 - 37.0 g/dL [facility] RDW - SD 49.1 37.0 - 55.0 fL [facility] MPV 9.1 8.8 - 13.2 fL [facility] Platelet count 420 (H) 150 - 400 k/uL [facility] Nucleated RBC 0.00 /100 WBC [facility] Neutrophils 69.3 (H) 39.0 - 69.0 % [facility] Lymphocytes 24.7 (L) 25.0 - 45.0 % [facility] Monocytes 4.4 0.0 - 10.0 % [facility] Eosinophils 0.1 0.0 - 5.0 % [facility] Basophils 0.4 0.0 - 1.0 % [facility] Immature granulocytes 1.1 (H)Comment: 0.0 - 1.0 % [facility] "Immature [facility] granulocytes" (promyelocytes, myelocytes, metamyelocytes) Specimen Blood Performing Organization Address City/[facility]/Zipcode Phone Number [facility] DEPARTMENT OF PATHOLOGY AND [address] [place] [address] Lipase level (09/10/2018 3:35 PM [employer]) Lipase 47 13 - 60 U/L [facility] Specimen Plasma specimen Performing Organization Address City/[facility] Phone Number [facility] DEPARTMENT OF PATHOLOGY AND [address] [place] [phone] [address] Amylase level (09/10/2018 3:35 PM [employer]) Amylase 79 28 - 100 U/L [facility] Specimen Plasma specimen Performing Organization Address City/State/Zipcode Phone Number [facility] DEPARTMENT OF PATHOLOGY AND [address] [place] [phone] [address] Comprehensive metabolic panel (09/10/2018 3:35 PM [employer]) Sodium 142 135 - 148 mEq/L [facility] Potassium 4.9 3.5 - 5.0 mEq/L [facility] Chloride 105 98 - 112 mEq/L [facility] CO2 25 24 - 31 mEq/L [facility] Anion gap 12@ANIO 7 - 15 mEq/L [facility] BUN 26 (H) 8 - 23 mg/dL [facility] Creatinine 0.80 0.50 - 0.90 mg/dL [facility] Glucose 69 65 - 99 mg/dL [facility] Calcium 10.0 8.8 - 10.2 mg/dL [facility] Protein 7.3 6.3 - 8.3 g/dL [facility] Comment: HOSPITAL [place] 4.6-7.0 g/dL 1 week 4.4-7.6 g/dL 7 months-1year5.1-7.3 g/dL 1-2 years5.6-7.5 g/dL >3 years6.0-8.0 g/dL 18-150 6.3-8.3 g/dL Albumin 3.6 3.5 - 5.0 g/dL [facility] A/G ratio 1.0 0.7 - 3.8 [facility] Alkaline phosphatase 72 35 - 104 U/L [facility] AST 24 10 - 35 U/L [facility] ALT 25 5 - 50 U/L [facility] Total bilirubin 0.3 0.0 - 1.2 mg/dL [facility] Specimen Plasma specimen Performing Organization Address City/[facility]/Zipcode Phone Number [facility] DEPARTMENT OF PATHOLOGY AND [address] [address] Urinalysis screen and microscopy, with reflex to culture (09/10/2018 2:50 PM [employer]) Specimen site Clean catch [facility] Color, UA Yellow [facility] Appearance, UA Hazy [facility] Specific gravity, UA 1.021 1.001 - 1.035 [facility] pH, UA 5.0 5.0 - 8.5 [facility] Protein, UA 2+ (A) Negative [facility] Glucose, UA Negative Negative [facility] Ketones, UA Negative Negative [facility] Bilirubin, UA Negative Negative [facility] Blood, UA Large (A) Negative [facility] Nitrite, UA Negative Negative [facility] Urobilinogen, UA <2.0 <2.0 [facility] Leukocyte esterase, UA Trace (A) Negative [facility] Epithelial cells, UA 1 /HPF [facility] WBC, UA 18 (H) 0 - 4 /HPF [facility] RBC, UA >180 (H) 0 - 5 /HPF [facility] Bacteria, UA Few None seen [facility] Yeast, UA None seen [facility] Yeast with pseudohyphae, UA None seen [facility] Hyaline casts, UA 7 /LPF [facility] Specimen Urine Performing Organization Address City/[facility] Phone Number [facility] DEPARTMENT OF PATHOLOGY AND [address] [place] [address] Gram stain (09/10/2018 2:50 PM [employer]) Gram stain result No WBC's or organisms seen. [facility] Comment: Specimen Information Specimen Source: Urine Specimen Site: Clean catch Specimen Urine Performing Organization Address City/[facility] Phone Number [facility] DEPARTMENT OF PATHOLOGY AND [address] [place] [phone] Urine culture (09/10/2018 2:50 PM [employer]) Urine culture isolate Mixed efren <=10-3 col/cc [facility] Comment: Specimen Information Specimen Source: Urine Specimen Site: Clean catch Specimen Urine Performing Organization Address City/[facility] Cent[facility]ode Phone Number [facility] DEPARTMENT OF PATHOLOGY AND [address] [place] [phone] Echocardiogram complete w contrast and 3D if needed (05/02/2018 4:50 PM CDT) Narrative Performed At [facility] Echocardiography Report Pat.Name:JOAN COHN Pat.ID:[id number] .Date: 05/02/2018 Refer.MD:JOSE SALGUERO MD Exam Time: 3:38:00 PMStudy Type:Routine Echo Height:60inWeight: 125lb BSA: 1.53 m2 DOBAge:1940,78Y Sex: FEMALEBP:107/52 HR:90 bpm Sonogrphr: CHRIS Hagen FASE Pat. Stat.:OutpatientRoom:[place] [address] Study Status:Final Echo Event ID:[id number] Order ID:[id number] Reason for Study:Myocardial Ischemia/ Infarction Procedures:2D Echo, Colorflow Doppler Race:C SUMMARY: No evidence of MS FINDINGS: LV: LV size is normal. There [...] of 5 mmHg. MEASUREMENTS: 2D Parasternal [place] LVOT 1.7 cmLA Ds3.3 cm LVIDd4.1 cmIndex2.7 cm/m Ao An1.8 cm LVIDs2.4 cmAo Rtd 3 cm Index1.9 cm/m LV%fs 41.9 % LV Mnhf279.3 g(87-129) IVSd 1.5 cmRWT0.4 LVPWd0.8 cm LA Sng Plane LA Area 15.4 cm2(8.8-23.4) LA Vol44.4 ml Index29 ml/m LA LngAx 4.5 cm Signed 05/03/2018 10:57 AM Judith Carrillo M.D. Procedure Note Interface, Radiology Results In - 05/03/2018 10:57 AM CDT [facility] Echocardiography Report Pat.Name: JOAN COHN Pat.ID: [id number] .Date: 05/02/2018 Refer.MD: JOSE SALGUERO MD Exam Time: 3:38:00 PM Study Type:Routine Echo Height: 60in Weight: 125lb BSA: 1.53 m2 Age: 8 1940,78Y Sex: FEMALE BP: 107/52 HR: 90 bpm Sonogrphr: CHRIS Hagen FASE Pat. Stat.:Outpatient Room: [place] [address] Study Status:Final Echo Event ID:[id number] Order ID: [id number] Reason for Study:Myocardial Ischemia/ Infarction Procedures:2D Echo, Colorflow Doppler Race: C SUMMARY: No evidence of MS FINDINGS: LV: LV size is normal. There [...] of 5 mmHg. MEASUREMENTS: 2D Parasternal [place] LVOT 1.7 cm LA Ds 3.3 cm [...] AM Judith Carrillo M.D. Performing Organization Address City/State/Zipcode Phone Number [facility] [address] [place] [address] CV pacemaker defib or ilr interrogation (04/02/2018) Narrative Performed At ECG 12 lead (01/01/2018 9:45 AM CDT) Ventricular rate 85 [facility] Atrial rate 85 [facility] FL interval 210 [facility] QRSD interval 92 [facility] MUSE QT interval 386 [facility] MUSE QTC interval 459 [facility] MUSE P axis 1 46 H MUSE QRS axis 1 35 [facility] MUSE T wave axis 29 [facility] MUSE EKG impression Electronic atrial pacemaker-In automated [facility] MUSE comparison with ECG of 11-JUN-2017 09:17,-No significant change was found- Performing Organization Address City/State/Zipcode Phone Number [facility] MUSE [address] [place] [address] CV pacemaker defib or ilr interrogation (01/01/2018) Narrative Performed At after 12/10/2017 Insurance Payer Benefit Plan / Group Subscriber ID Type Phone Address AETNA MEDICARE AETNA MEDICARE HMO/PPO [facility] xxxxxxxx HMO ([address] [place] [address] Advance Directives Patient has advance care planning documents on file. For more information, please contact:Torey Heard[address] [place] [address]
--- OUTSIDE RECORDS SUMMARY | 2018-12-11 20:44 | XMS REPORT ---
:1940 [facility] [address] [place] [address] Care Team Providers Name Role Phone Unavailable Unavailable Unavailable Payers Payer Name Policy Type Policy Number Effective Date Expiration Date Problems This patient has no known problems. Allergies, Adverse Reactions, Alerts Allergy Allergy Status Severity Reaction(s) Onset Inactive Treating Comments Name Type Date Date Clinician No Known DA Active U 2016-04 Allergies -28 00:00:0 0 Medications This patient has no known medications. Results Test Description Test Time Test Comments Text Results Atomic Results Result Comments - XR FLUOROSCOPY 0-60 MIN 2018-10-04 12:38:00 Name: VIN ABRAMS : 1940 Age/S: 78 / F [id number] Unit #: [id number] Loc: [place] [address] Phys: Geovanni Ross MD Acct: [id number] Dis Date: Status[place] [facility] #: [phone] Exam Date: 10/04/2018 0830 FAX #: Reason: STENT WITH LASER EXAMS: CPT: [id number] XR FLUOROSCOPY 0-60 MIN 22016 Fluoro Time: 57 SEC DAP (Gy m2): Air Kerma (mGy): EXAMINATION: - XR FLUOROSCOPY 0-60 MIN. LOCATION: S17. HISTORY: STENT WITH LASER. COMPARISON: None. FINDINGS/ IMPRESSION: Six portable limited intraoperative fluoroscopic images of the kidney are submitted to radiology department. Images demonstrate opacification of intrarenal collecting system with final images demonstrating partial visualization of proximal ureteral stent. Please see operative report for further details. FLUOROSCOPIC TIME: 57.3 seconds. 9.07 mGy. at 1238 Reported and signed by: Cee Fagan M.D. CC: Geovanni Ross MD PAGE 1 Signed Report Name: VIN ABRAMS : 1940 Age/S: 78 / F [id number] Unit #: [id number] Loc: [place] [address] Phys: Geovanni Ross MD Acct: [id number] Dis Date: Status: REG [facility] PHONE #: [phone] Exam Date: 10/04/2018 08 FAX #: Reason: STENT WITH LASER EXAMS: CPT: [id number] XR FLUOROSCOPY 0-60 MIN 39751 Fluoro Time: 57 SEC DAP (Gy m2): Air Kerma (mGy): <Continued> Technologist: Madyson Dooley, RT(R) Trnscb Date/Time: 10/04/2018 (1238) [email or web address] Orig Print D/T: S: 10/04/2018 (2365) PAGE 2 Signed Report BASIC METABOLIC PANEL 2018-10-03 14:40:00 Test Item Value Reference Range Comments SODIUM (test code=NA) 142 mmol/L 134-147 POTASSIUM (test code=K) 3.8 mmol/L 3.4-5.0 CHLORIDE (test code=CL) 109 mmol/L 100-108 CARBON DIOXIDE (test code=CO2) 26 mmol/L 21-32 ANION GAP (test code=GAP) 7.0 GAP calc 4.0-15.0 GLUCOSE (test code=GLU) 170 MG/DL 70-110 BLOOD UREA NITROGEN (test code=BUN) 22 MG/DL 7-18 GLOMERULAR FILTRATION RATE (test code=GFR) >=60 max estimate estGFR >60 CREATININE (test code=CREAT) 0.9 MG/DL 0.6-1.0 CALCIUM (test code=CA) 8.7 MG/DL 8.5-10.1 CBC W/AUTO [id number] 14:28:00 Test Item Value Reference Range Comments WHITE BLOOD CELL (test code=WBC) 8.7 K/mm3 3.5-11.0 RED BLOOD CELL (test code=RBC) 4.53 M/mm3 4.70-6.10 HEMOGLOBIN (test code=HGB) 12.5 G/DL 10.4-14.9 HEMATOCRIT (test code=HCT) 39.6 % 31.5-44.1 MEAN CELL VOLUME (test code=MCV) 87.4 Fl 84.5-98.6 MEAN CELL HGB (test code=MCH) 27.6 pg 27.0-34.2 MEAN CELL HGB CONCETRATION (test code=MCHC) 31.6 G/DL 31.5-34.0 RED CELL DISTRIBUTION WIDTH (test code=RDW) 15.2 SD 11.5-14.5 PLATELET COUNT (test code=PLT) 369.0 K/mm3 150-450 MEAN PLATELET VOLUME (test code=MPV) 9.10 fL 7.0-10.5 NEUTROPHIL % (test code=NT%) 61.6 % 40-76 LYMPHOCYTE % (test code=LY%) 30.5 % 20.5-51.1 MONOCYTE % (test code=MO%) 4.5 % 1.7-9.3 EOSINOPHIL % (test code=EO%) 3.2 % 0.0-6.0 BASOPHIL % (test code=BA%) 0.2 % 0.0-2.0 NEUTROPHIL # (test code=NT#) 5.37 K/mm3 1.8-7.6 LYMPHOCYTE # (test code=LY#) 2.7 K/mm3 0.6-3.2 MONOCYTE # (test code=MO#) 0.4 K/mm3 0.3-1.1 EOSINOPHIL # (test code=EO#) 0.3 K/mm3 0.0-0.4 BASOPHIL # (test code=BA#) 0.0 K/mm3 0.0-0.1 MANUAL DIFF REQUIRED (test code=MDIFF) NO DIFF/SCN CRITERIA - XR FLUOROSCOPY 0-60 [id number] 17:01:00 Name: VIN ABRAMS [place] : 1940 Age/S: 78 / F [id number] [address] Unit #: [id number] Loc: [place] [address] Phys: Geovanni Ross MD Acct: [id number] Dis Date: Status : [facility] PHONE #: [phone] Exam Date: 09/26/20181714 FAX #: Reason: LEFT STENT PLACEMENT EXAMS: CPT: [id number] XR FLUOROSCOPY 0-60 MIN 66582 Fluoro Time: 13.2 DAP (Gy m2): Air Kerma (mGy): 2.41 Location: T 18 INDICATION: Kidney stones, left nephroureteral stent placement IMPRESSION: 13.2 seconds of intraoperative fluoroscopy provided for left nephroureteral stent placement. I was not present for or involved with the procedure or provided fluoroscopy. Please refer to the procedure note for details. Radiation dose 2.41 mGy. at 1701 Reported and signed by: Fanny Encarnacion M.D. CC: Geovanni Ross MD PAGE 1 Signed Report Name: VIN ABRAMS [facility] : [birth year]/11 Age/S: 78 / F [id number] [address] Unit #: [id number] Loc: [place] [address] Phys: Geovanni Ross MD Acct: [id number] Dis Date: Status: [facility] PHONE #: [phone] Exam Date: 09/26/20180 FAX #: Reason: LEFT STENT PLACEMENT EXAMS: CPT: [id number] XR FLUOROSCOPY 0-60 MIN 35280 Fluoro Time: 13.2 DAP (Gy m2): Air Kerma (mGy): 2.41 <Continued> Technologist: Rob Nuñez, RT(R)(CT) ; ... Trnscb Date/Time: 09/28/2018 (1701) [email or web address] Orig Print D/T: S: 09/28/2018 (1705) PAGE 2 Signed Report
[2018-12-11 22:21] LABS: Urine Blood NEGATIVE (NEG); Urine Glucose NEGATIVE (NEG); Urine Protein NEGATIVE (NEG); Urine Specific Gravity >1.030 (1.005-1.030); Urine pH 5.5 (5.0-7.0)
[2018-12-11 22:34] LABS: Absolute Lymphocytes (CBC) 2.2 K/uL (0.7-4.9); Absolute Monocytes 0.4 K/uL (0.1-1.3); Absolute Neutrophil 5.7 K/uL (1.8-8.0); Basophils % 0.5 % (0-1.3); Eosinophils % 2.3 % (0-4.4); Lymphocytes % 25.5 % (15.3-44.8); MPV 7.8 fL (7.6-11.3); Monocytes % 5.2 % (3.3-12.3); Protime INR 0.98; RBC Red Blood Cell Count 4.12 M/uL (3.86-4.86)
[2018-12-11 22:34] LABS: Urine Bacteria <20 /HPF (<20); Urine RBC <5 /HPF (NONE SEEN)
[2018-12-11 22:35] LABS: Calcium Oxalate Crystals- Ur FEW (NONE SEEN); Urine Culture Reflex Order REFLEXED
[2018-12-11] MEDS ORDERED: ACETAMINOPHEN 500 MG TAB ONE (22:39)
[2018-12-11] MEDS ORDERED: NA CHLORIDE 0.9% 1,000 ML ONE (22:46)
[2018-12-11] MEDS ORDERED: ATROPINE SULF 1 MG/10 ML SYR IV ONE (22:46)
[2018-12-11 22:48] LABS: ALT/SGPT 19 U/L (12-78); AST/SGOT 14 U/L (15-37); Albumin 3.3 g/dL (3.4-5.0); Alkaline Phosphatase 66 U/L (45-117); BUN Blood Urea Nitrogen 21 mg/dL (7-18); Bicarbonate 23 mmol/L (21-32); Bilirubin Direct 0.1 mg/dL (0-0.2); Bilirubin Total 0.3 mg/dL (0.2-1.0); Glucose Level 130 mg/dL (74-106); Lipase 249 U/L (73-393); Magnesium 2.2 mg/dL (1.8-2.4); Potassium 3.6 mmol/L (3.5-5.1); Protein, Total 6.7 g/dL (6.4-8.2); Sodium Level 146 mmol/L (136-145); Troponin (Emerg Dept Use Only) < 0.02 ng/mL (0.0-0.045)
[2018-12-12] MEDS ORDERED: FENTANYL CITR 100 MCG/2 ML ONE (03:10)
--- NOTE | 2018-12-12 07:36 | ER ---
Nurse's Notes [facility] Name: Joan Cohn Age: 78 yrs Sex: Female : 1940 Arrival Date: 12/11/2018 Time: 20:42 Bed 6 Private MD: Diagnosis: Syncope and collapse;Bradycardia, unspecified Presentation: 12/11 20:43 Presenting complaint: Patient states: she was eating dinner with her family and aa1 suddenly felt as if she was going to pass out. Reports her family moved her to the couch and then her symptoms resolved shortly after. States she did not lose consciousness nor did she have any dizziness, blurred vision, headache or slurred speech. Reports her only symptom was feeling as if she was about to pass out. No deficits noted at this time. Pt A\\T\\O x 4. Transition of care: patient was not received from another setting of care. Onset of symptoms was December 11, 2018. Risk Assessment: Do you want to hurt yourself or someone else? Patient reports no desire to harm self or others. Initial Sepsis Screen: Does the patient meet any 2 criteria? No. Patient's initial sepsis screen is negative. Does the patient have a suspected source of infection? No. Patient's initial sepsis screen is negative. Care prior to arrival: Glucose check: 94. 20:43 Method Of Arrival: EMS: [facility] aa1 20:43 Acuity: MIGUEL 3 aa1 Historical: - Allergies: 20:51 No Known Allergies; aa1 - Home Meds: 20:56 amlodipine 5 mg tab 1 tab once daily [Active]; aspirin 81 mg Oral chew 1 tab once daily aa1 [Active]; atorvastatin 40 mg Oral tab [Active]; biotin oral daily [Active]; calcium carbonate 600 mg (1,500 mg) Oral tab [Active]; clopidogrel 75 mg Oral tab 1 tab once daily [Active]; CoQ-10 Oral daily [Active]; cranberry 500 mg Oral cap daily [Active]; Krill Oil ([place] 3 and 6) Oral daily [Active]; levothyroxine oral [Active]; lisinopril 20 mg Oral tab once daily [Active]; Namzaric 28-10 mg Oral CSpX 1 cap once daily [Active]; pantoprazole 40 mg oral TbEC 1 tab once daily [Active]; pramipexole 1.5 mg Oral tab 1 tab daily [Active]; sertraline 50 mg Oral tab 1 tab once daily [Active]; - PMHx: 20:51 Anxiety; Dementia; GERD; Hypertension; Hypothyroidism; scoliosis; sick sinus syndrome; aa1 - PSHx: 20:51 PACEMAKER; aa1 20:56 Hysterectomy; Thyroidectomy; aa1 - Immunization history:: Adult Immunizations unknown. - Social history:: Smoking status: Patient/guardian denies using tobacco. - Ebola Screening: : No symptoms or risks identified at this time. - Family history:: not pertinent. - Hospitalizations: : No recent hospitalization is reported. Screenin:45 Abuse screen: Denies threats or abuse. Denies injuries from another. Nutritional aa1 screening: No deficits noted. Tuberculosis screening: No symptoms or risk factors identified. Fall Risk None identified. Assessment: 20:45 General: Appears in no apparent distress. comfortable, Behavior is calm, cooperative, aa1 appropriate for age. Pain: Denies pain. Neuro: Level of Consciousness is awake, alert, obeys commands, Oriented to person, place, time, situation, Radio Performer are equal bilaterally Moves all extremities. Full function Speech is normal, Facial symmetry appears normal, Pupils are PERRLA, Intact Denies weakness blurred vision dizziness, difficulty swallowing, paresthesias numbness headache photophobia diplopia. Cardiovascular: Reports near syncope CLINICAL ADVISOR Denies chest pain, diaphoresis, nausea, palpitations, shortness of breath, Heart tones S1 S2 present Capillary refill < 3 seconds Clubbing of nail beds is absent JVD is absent Patient's skin is warm and dry. Rhythm is regular. Respiratory: Airway is patent Respiratory effort is even, unlabored, Respiratory pattern is regular, symmetrical, Breath sounds are clear bilaterally. GI: No signs and/or symptoms were reported involving the gastrointestinal system. : No signs and/or symptoms were reported regarding the genitourinary system. EENT: No signs and/or symptoms were reported regarding the EENT system. Derm: Skin is intact, is healthy with good turgor, Skin is pink, warm \\T\\ dry. Musculoskeletal: Circulation, motion, and sensation intact. Capillary refill < 3 seconds. 21:40 Reassessment: Patient appears in no apparent distress at this time. Patient and/or aa1 family updated on plan of care and expected duration. Pain level reassessed. Patient is alert, oriented x 3, equal unlabored respirations, skin warm/dry/pink. Awaiting MD orders; Dr. Estrella states he will have them in soon. 22:15 Reassessment: Pt's daughter came out from room reporting that pt isn't feeling right. aa1 Upon entry to room pt c/o sudden onset of severe headache behind her eyes and feels hot all over. Pt appears pale and diaphoretic. States her symptoms started after her IV was inserted and that her IV is hurting her really bad. Pt requesting IV be removed. MD informed of pt's symptoms and is present at bedside. 22:56 Reassessment: Patient appears in no apparent distress at this time. Patient and/or aa1 family updated on plan of care and expected duration. Pain level reassessed. Patient is alert, oriented x 3, equal unlabored respirations, skin warm/dry/pink. Pt reports she still has a slight headache but is feeling a little better. No longer appears flushed at this time. Requesting to go to the restroom Patient states symptoms have improved. 23:46 Reassessment: Patient appears in no apparent distress at this time. Patient and/or aa1 family updated on plan of care and expected duration. Pain level reassessed. Patient is alert, oriented x 3, equal unlabored respirations, skin warm/dry/pink. Awaiting provider reassessment Patient denies pain at this time. Patient states feeling better. 12/12 00:00 Reassessment: [employer] Pacemaker interrogation done at bedside at this time. aa1 00:55 Reassessment: Patient appears in no apparent distress at this time. Patient and/or aa1 family updated on plan of care and expected duration. Pain level reassessed. Patient is alert, oriented x 3, equal unlabored respirations, skin warm/dry/pink. Dr. Estrella at bedside discussing POC with pt \\T\\ family. 01:45 Reassessment: Patient appears in no apparent distress at this time. Patient and/or aa1 family updated on plan of care and expected duration. Pain level reassessed. Patient is alert, oriented x 3, equal unlabored respirations, skin warm/dry/pink. Pt assisted to restroom at this time. 03:06 Reassessment: Patient appears in no apparent distress at this time. Patient and/or aa1 family updated on plan of care and expected duration. Pain level reassessed. Patient is alert, oriented x 3, equal unlabored respirations, skin warm/dry/pink. Per ERP, pt to remain in ER until morning in hopes of receiving a bed at [facility] for transfer. Pt reports she does not want to be admitted at any other facility since that is where her physician is. 04:00 Reassessment: Patient appears in no apparent distress at this time. Patient and/or aa1 family updated on plan of care and expected duration. Pain level reassessed. Patient is alert, oriented x 3, equal unlabored respirations, skin warm/dry/pink. Pt awaiting contact with her wastewater project engineer for transfer attempt. 05:00 Reassessment: Patient appears in no apparent distress at this time. Patient and/or aa1 family updated on plan of care and expected duration. Pain level reassessed. Patient is alert, oriented x 3, equal unlabored respirations, skin warm/dry/pink. Pt awaiting contact with her wastewater project engineer for transfer attempt. 05:57 Reassessment: Patient appears in no apparent distress at this time. Resting quietly, aa1 eyes closed. Pt awaiting contact with her wastewater project engineer for transfer attempt. 06:49 Reassessment: Patient appears in no apparent distress at this time. No changes from aa1 previously documented assessment. Resting quietly, eyes closed. Pt awaiting contact with her wastewater project engineer for transfer attempt. 07:16 General: Appears in no apparent distress. comfortable, Behavior is calm, cooperative, hj appropriate for age. Pain: Denies pain. Neuro: Level of Consciousness is awake, alert, obeys commands, Oriented to person, place, time, situation, Appropriate for age Radio Performer are equal bilaterally Moves all extremities. Full function Speech is normal, Facial symmetry appears normal, Pupils are PERRLA, Intact. Cardiovascular: Denies chest pain, diaphoresis, nausea, palpitations, shortness of breath, Heart tones S1 S2 present Capillary refill < 3 seconds Clubbing of nail beds is absent JVD is absent Patient's skin is warm and dry. Rhythm is regular. Respiratory: Airway is patent Respiratory effort is even, unlabored, Respiratory pattern is regular, symmetrical, Breath sounds are clear. GI: No signs and/or symptoms were reported involving the gastrointestinal system. : No signs and/or symptoms were reported regarding the genitourinary system. EENT: No signs and/or symptoms were reported regarding the EENT system. Derm: Skin is intact, is healthy with good turgor, Skin is pink, warm \\T\\ dry. Musculoskeletal: Circulation, motion, and sensation intact. Capillary refill. 07:29 Reassessment: awaiting ED provider to contact pt wastewater project engineer for POC;. hj 08:24 Reassessment: Patient appears in no apparent distress at this time. Patient and/or iw family updated on plan of care and expected duration. Pain level reassessed. Patient is alert, oriented x 3, equal unlabored respirations, skin warm/dry/pink. awaiting acceptance at [facility], pt repositioned in bed, pillow placed under legs, breakfast tray ordered per pt request Patient denies pain at this time. 09:34 Reassessment: Patient appears in no apparent distress at this time. Patient and/or iw family updated on plan of care and expected duration. Pain level reassessed. Patient is alert, oriented x 3, equal unlabored respirations, skin warm/dry/pink. pt assisted with bed joseph, approx 100 mL urine output, pt finished breakfast, call light in reach, VSS, repositioned bed, awaiting bed assignment at [facility]. 10:14 Reassessment: Patient and/or family updated on plan of care and expected duration. Pain hj level reassessed. Patient is alert, oriented x 3, equal unlabored respirations, skin warm/dry/pink. awaiting taoist placement;. 10:20 Reassessment: pt assisted with bedpan, approx 50 mL urine output, repositioned in bed, iw VSS, call light within reach. 10:46 Reassessment: Patient appears in no apparent distress at this time. Patient and/or iw family updated on plan of care and expected duration. Pain level reassessed. spoke with daughter, advised that we still do not have acceptance to [facility], facility is at capacity and ER is beyond saturation, we are waiting to hear back from Dr. Gutierrez's office, daughter states she will make another phone call to Dr. Escamilla to help facilitate transfer. 11:50 Reassessment: Spoke with Katelin at [facility] transfer center, pt is declined due to iw her "emergency status", pt will need to be admitted as inpatient and then transferred. Vital Signs: 12/11 20:43 BP 127 / 85; Pulse 72; Resp 18; Temp 97.8; Pulse Ox 100% on R/A; Weight 63.5 kg; Height aa1 5 ft. 4 in. (162.56 cm); Pain 0/10; 21:40 BP 112 / 59; Pulse 65; Resp 20; Pulse Ox 96% ; Pain 0/10; aa1 22:30 BP 123 / 59; Pulse 51; Resp 16; Pulse Ox 98% on R/A; mt 22:37 BP 104 / 54; Pulse 60; Resp 18; Pulse Ox 99% on R/A; mt 22:56 BP 116 / 44; Pulse 63; Resp 20; Pulse Ox 97% on R/A; aa1 23:46 BP 103 / 41; Pulse 76; Resp 18; Pulse Ox 97% on R/A; aa1 12/12 00:55 BP 101 / 47; Pulse 61; Resp 22; Temp 97.9; Pulse Ox 95% on R/A; Pain 0/10; aa1 01:45 BP 124 / 58; Pulse 65; Resp 18; Pulse Ox 98% on R/A; Pain 0/10; aa1 03:06 BP 126 / 55; Pulse 76; Resp 22; Pulse Ox 98% on R/A; aa1 03:59 BP 132 / 59; Pulse 62; Resp 18; Pulse Ox 99% on R/A; mt 04:49 BP 134 / 58; Pulse 54; Resp 18; Pulse Ox 100% on R/A; mt 05:57 BP 109 / 50; Pulse 58; Resp 28; Pulse Ox 95% on R/A; Pain 0/10; aa1 06:49 BP 131 / 69; Pulse 90; Resp 16; Temp 97.5; Pulse Ox 96% on R/A; Pain 0/10; aa1 07:18 BP 153 / 75; Pulse 68; Resp 18; Pulse Ox 98% on R/A; hj 08:17 BP 131 / 58; Pulse 64; Resp 16; Pulse Ox 97% on R/A; Pain 0/10; iw 08:21 BP 130 / 77; Pulse 68; Resp 18; Pulse Ox 100% on R/A; hj 10:15 BP 112 / 42; Pulse 62; Resp 18; Pulse Ox 99% on R/A; hj 10:43 BP 109 / 64; Pulse 69; Resp 16 S; Pulse Ox 98% on R/A; Pain 0/10; iw 12:03 BP 111 / 74; Pulse 71; Resp 16 S; Pulse Ox 97% on R/A; Pain 0/10; iw 0403 20:43 Body Mass Index 24.03 (63.50 kg, 162.56 cm) aa1 ED Course: 12/11 20:42 Patient arrived in ED. aa1 20:43 Arm band placed on right wrist. aa1 20:45 Patient has correct armband on for positive identification. Placed in gown. Bed in low aa1 position. Call light in reach. railcar foreman on. Pulse ox on. NIBP on. Warm blanket given. 20:48 Triage completed. aa1 20:50 EKG done, by ED staff, reviewed by Jairo Estrella MD. aa1 20:52 Yvonne Mabry, TREY is Primary Nurse. aa1 20:52 Jaior Estrella MD is Attending Physician. wa 21:57 Assisted to bathroom. aa1 21:59 Urine collected: clean catch specimen. aa1 22:00 Inserted saline lock: 20 gauge in right antecubital area, using aseptic technique. mt 22:01 Urine Microscopic Only Sent. aa1 22:11 CT Head Brain wo Cont In Process Unspecified. EDMS 22:11 X-ray completed. Portable x-ray completed in exam room. Patient tolerated procedure az well. 22:14 Chest Single View XRAY In Process Unspecified. EDMS 22:30 IV discontinued, intact, bleeding controlled, No redness/swelling at site. Pressure mt dressing applied. 22:35 Inserted saline lock: 20 gauge in right antecubital area, using aseptic technique. mt 22:58 Assisted to bathroom. aa1 12/12 07:04 Report given to Anum Bang RN. aa1 07:08 Dc Garcia, RN is Primary Nurse. hj 07:36 Sanitary Aide called / Dr. Gutierrez called at [phone] left a message with the eb answering service to please call Dr. Estrella back for patient consultation. 07:41 Sanitary Aide process control technician for Dr. Gutierrez returned page and connected with Dr. Estrella for eb patient consultation. 08:04 called and left a message with Blanca at the Dr. Gutierrez's office to arrange transfer. eb 08:09 called and spoke with the [facility] to initiate a transfer. eb 08:18 [facility] declined the patient in transfer due to being at capacity and er saturation/ eb they will call and notify Dr. Gutierrez of the bed situation. 10:09 called and left another message for Blanca Gutierrez's nurse to please call us back eb regarding the transfer. 12:13 Primary Nurse role handed off by Dc Garcia RN iw 12:13 Anum Bang RN is Primary Nurse. iw 12:34 Attending Physician role handed off by Jairo Estrella MD rn 12:34 Krishna Sanches MD is Attending Physician. rn 12:34 Desiree Garcia MD is Hospitalizing Provider. rn 14:55 No provider procedures requiring assistance completed. Patient admitted, IV remains in hj place. intact. Administered Medications: 12/11 22:40 Drug: NS 0.9% 1000 ml Route: IV; Rate: 1000 ml; Site: right antecubital; aa1 12/12 00:56 Follow up: IV Status: Completed infusion; IV Intake: 1000ml aa1 12/11 22:41 Drug: Tylenol 1000 mg Route: PO; aa1 12/12 00:58 Follow up: Response: No adverse reaction; Pain is decreased aa1 03:04 Drug: fentaNYL (PF) 25 mcg Route: IVP; Site: right antecubital; aa1 04:00 Follow up: Response: No adverse reaction; Pain is decreased aa1 Intake: 00:56 IV: 1000ml; Total: 1000ml. aa1 Outcome: 07:35 ER care complete, transfer ordered by . wa 12:35 Decision to Hospitalize by Provider. rn 14:55 Admitted to Tele accompanied by tech, family with patient, via stretcher, room 208, with chart, Report called to RN 14:55 Condition: stable 14:55 Instructed on the need for admit. 14:56 Patient left the ED. Signatures: Dispatcher [employer] EDMS Yvonne Mabry RN RN aa1 Anum Bang RN RN Krishna Sanches MD MD rn Joaquin, Henry, RN RN Teresa Moore ca Jairo Estrella MD MD wa Botello, Elizabeth eb Zavala, Araceli az
--- NOTE | 2018-12-12 07:36 | EDPHYS ---
Physician Documentation [facility] Name: Joan Cohn Age: 78 yrs Sex: Female : 1940 Arrival Date: 12/11/2018 Time: 20:42 Bed 6 Private MD: ED Physician Krishna Sanches HPI: 12/12 07:23 This 78 yrs old Female presents to ER via EMS with complaints of Near Syncope.wa 07:23 The patient has experienced near-syncope, almost passed out, felt faint, felt generally wa weak. Onset: The symptoms/episode began/occurred just prior to arrival. Duration: This was a single episode, that lasted 20 second(s). Context: the episode(s) was witnessed, by family, occurred at home, occurred while the patient was at supper. Just prior to the episode the patient experienced felt faint. Associated injury: The patient did not suffer any apparent associated injury. Associated signs and symptoms: Pertinent positives: dizziness, lightheadedness, Pertinent negatives: abdominal pain, blurred vision, chest pain, confusion, diaphoresis, diarrhea, headache, nausea, palpitations, shortness of breath, vomiting. Current symptoms: states feels much better. The patient has not experienced similar symptoms in the past. The patient has not recently seen a physician. has pacemaker for sick sinus syndrome. placed by Dr. Gutierrez at [facility]. Historical: - Allergies: 12/11 20:51 No Known Allergies; aa1 - Home Meds: 20:56 amlodipine 5 mg tab 1 tab once daily [Active]; aspirin 81 mg Oral chew 1 tab once daily aa1 [Active]; atorvastatin 40 mg Oral tab [Active]; biotin oral daily [Active]; calcium carbonate 600 mg (1,500 mg) Oral tab [Active]; clopidogrel 75 mg Oral tab 1 tab once daily [Active]; CoQ-10 Oral daily [Active]; cranberry 500 mg Oral cap daily [Active]; Krill Oil (Rainier 3 and 6) Oral daily [Active]; levothyroxine oral [Active]; lisinopril 20 mg Oral tab once daily [Active]; Namzaric 28-10 mg Oral CSpX 1 cap once daily [Active]; pantoprazole 40 mg oral TbEC 1 tab once daily [Active]; pramipexole 1.5 mg Oral tab 1 tab daily [Active]; sertraline 50 mg Oral tab 1 tab once daily [Active]; - PMHx: 20:51 Anxiety; Dementia; GERD; Hypertension; Hypothyroidism; scoliosis; sick sinus syndrome; aa1 - PSHx: 20:51 PACEMAKER; aa1 20:56 Hysterectomy; Thyroidectomy; aa1 - Immunization history:: Adult Immunizations unknown. - Social history:: Smoking status: Patient/guardian denies using tobacco. - Ebola Screening: : No symptoms or risks identified at this time. - Family history:: not pertinent. - Hospitalizations: : No recent hospitalization is reported. ROS: 12/12 07:25 Constitutional: Negative for fever, chills, and weight loss, Eyes: Negative for injury, wa pain, redness, and discharge, ENT: Negative for injury, pain, and discharge, Neck: Negative for injury, pain, and swelling, Respiratory: Negative for shortness of breath, cough, wheezing, and pleuritic chest pain, Abdomen/GI: Negative for abdominal pain, nausea, vomiting, diarrhea, and constipation, Back: Negative for injury and pain, : Negative for injury, bleeding, discharge, and swelling, MS/Extremity: Negative for injury and deformity, Skin: Negative for injury, rash, and discoloration, Psych: Negative for depression, anxiety, suicide ideation, homicidal ideation, and hallucinations. Cardiovascular: Negative for chest pain, edema, orthopnea, palpitations, paroxysmal nocturnal dyspnea. Neuro: Positive for dizziness, near syncope. All other systems are negative. Exam: 07:26 Abdomen/GI: Inspection: abdomen appears normal, Bowel sounds: normal, Palpation: id abdomen is soft and non-tender. 07:26 Constitutional: This is a well developed, well nourished patient who is awake, alert, and in no acute distress. Head/Face: Normocephalic, atraumatic. Eyes: Pupils equal round and reactive to light, extra-ocular motions intact. Lids and lashes normal. Conjunctiva and sclera are non-icteric and not injected. Cornea within normal limits. Periorbital areas with no swelling, redness, or edema. ENT: Nares patent. No nasal discharge, no septal abnormalities noted. Tympanic membranes are normal and external auditory canals are clear. Oropharynx with no redness, swelling, or masses, exudates, or evidence of obstruction, uvula midline. Mucous membranes moist. Neck: Trachea midline, no thyromegaly or masses palpated, and no cervical lymphadenopathy. Supple, full range of motion without nuchal rigidity, or vertebral point tenderness. No Meningismus. Chest/axilla: Normal chest wall appearance and motion. Nontender with no deformity. No lesions are appreciated. Respiratory: Lungs have equal breath sounds bilaterally, clear to auscultation and percussion. No rales, rhonchi or wheezes noted. No increased work of breathing, no retractions or nasal flaring. Abdomen/GI: Soft, non-tender, with normal bowel sounds. No distension or tympany. No guarding or rebound. No evidence of tenderness throughout. Back: No spinal tenderness. No costovertebral tenderness. Full range of motion. Skin: Warm, dry with normal turgor. Normal color with no rashes, no lesions, and no evidence of cellulitis. MS/ Extremity: Pulses equal, no cyanosis. Neurovascular intact. Full, normal range of motion. Psych: Awake, alert, with orientation to person, place and time. Behavior, mood, and affect are within normal limits. 07:26 Cardiovascular: Rate: normal, Rhythm: regular, Pulses: no pulse deficits are appreciated, Heart sounds: normal, Edema: is not appreciated, JVD: is not appreciated. 07:26 Respiratory: the patient does not display signs of respiratory distress, Respirations: normal, Breath sounds: are clear throughout, Respiratory rate: nml 07:26 Neuro: Orientation: is normal, Cranial nerves: grossly normal, Motor: is normal. Vital Signs: 12/11 20:43 BP 127 / 85; Pulse 72; Resp 18; Temp 97.8; Pulse Ox 100% on R/A; Weight 63.5 kg; Height aa1 5 ft. 4 in. (162.56 cm); Pain 0/10; 21:40 BP 112 / 59; Pulse 65; Resp 20; Pulse Ox 96% ; Pain 0/10; aa1 22:30 BP 123 / 59; Pulse 51; Resp 16; Pulse Ox 98% on R/A; mt 22:37 BP 104 / 54; Pulse 60; Resp 18; Pulse Ox 99% on R/A; mt 22:56 BP 116 / 44; Pulse 63; Resp 20; Pulse Ox 97% on R/A; aa1 23:46 BP 103 / 41; Pulse 76; Resp 18; Pulse Ox 97% on R/A; aa1 12/12 00:55 BP 101 / 47; Pulse 61; Resp 22; Temp 97.9; Pulse Ox 95% on R/A; Pain 0/10; aa1 01:45 BP 124 / 58; Pulse 65; Resp 18; Pulse Ox 98% on R/A; Pain 0/10; aa1 03:06 BP 126 / 55; Pulse 76; Resp 22; Pulse Ox 98% on R/A; aa1 03:59 BP 132 / 59; Pulse 62; Resp 18; Pulse Ox 99% on R/A; mt 04:49 BP 134 / 58; Pulse 54; Resp 18; Pulse Ox 100% on R/A; mt 05:57 BP 109 / 50; Pulse 58; Resp 28; Pulse Ox 95% on R/A; Pain 0/10; aa1 06:49 BP 131 / 69; Pulse 90; Resp 16; Temp 97.5; Pulse Ox 96% on R/A; Pain 0/10; aa1 07:18 BP 153 / 75; Pulse 68; Resp 18; Pulse Ox 98% on R/A; hj 08:17 BP 131 / 58; Pulse 64; Resp 16; Pulse Ox 97% on R/A; Pain 0/10; iw 08:21 BP 130 / 77; Pulse 68; Resp 18; Pulse Ox 100% on R/A; hj 10:15 BP 112 / 42; Pulse 62; Resp 18; Pulse Ox 99% on R/A; hj 10:43 BP 109 / 64; Pulse 69; Resp 16 S; Pulse Ox 98% on R/A; Pain 0/10; iw 12:03 BP 111 / 74; Pulse 71; Resp 16 S; Pulse Ox 97% on R/A; Pain 0/10; iw 12/11 20:43 Body Mass Index 24.03 (63.50 kg, 162.56 cm) [facility] MDM: 12/11 20:52 Patient medically screened. id 12/12 07:27 Differential Diagnosis: cardiac arrhythmia, cerebrovascular accident, idiopathic id syncope, transient ischemic attack, vasovagal episode. Data reviewed: vital signs, nurses notes. Test interpretation: by ED physician or midlevel provider: initial EKG interp by ut: HR 62. noted sinus. nml axis. no ischemic changes. Test interpretation: by ED physician or midlevel provider: labs noted wnl. CXR: no acute infiltrate. . ED course: pt had acute episode in ED. became clammy and diaphoretic with weak pulse. pacer rate noted to decrease to as low as 39. symptoms required a fluid bolus. lasted for about 5 minutes. ED course: called [facility] for consultation with Dr. Gutierrez. Cadiology fellow Dr. Cruz called back and accepted pt however told by transfer center had no beds. discussed alternatives with pt's daughter. insisted does not want to go elsewhere and would like to see Dr. Gutierrez. kept and monitored pt in ED till 6:30 AM. called put out to Dr. Gutierrez. awaiting call back. [employer] pacer interrogated and on chart pending consultation with Dr. Gutierrez. 09:16 ED course: 0700hrs: pending a bed at [facility]. have made contact with Cardiology id fellow this AM. advised me will aert Dr. Gutierrez. we are in touch with his office. they are arranging transfer. pt at the moment stable with HR of 76. will continue to monitor. care turned over to Dr. Sanches at 0915 hrs. . 12:10 ED course: Now [facility] has called back, states no bed available, request that we editorial intern given they can't leave her on a wait list under emergent transfer. Spoke with Dr. Garcia who wants to confer with Dr. 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 Pt with most recent episode just past midnight and interrogation revealed pacemaker appears to be functioning fine and was in response to bradycardic episode. . 12/11 21:44 Order name: Basic Metabolic Panel; Complete Time: 00:16 12/11 21:44 Order name: CBC with Diff; Complete Time: 00:16 12/11 21:44 Order name: Hepatic Function; Complete Time: 00:16 12/11 21:44 Order name: Lipase; Complete Time: 00:16 12/11 21:44 Order name: Magnesium; Complete Time: 00:16 12/11 21:44 Order name: Protime (+inr); Complete Time: 00:16 12/11 21:44 Order name: CT Head Brain wo Cont id 12/11 21:44 Order name: Troponin (emerg Dept Use Only); Complete Time: 00:16 id 12/11 21:45 Order name: Chest Single View XRAY; Complete Time: 09:13 id 12/11 21:45 Order name: Urine Microscopic Only; Complete Time: 00:16 id 12/11 22:08 Order name: Urine Dipstick--Ancillary (enter results); Complete Time: 00:16 ar5 12/11 22:36 Order name: Urine Culture [facility] 12/11 20:57 Order name: EKG; Complete Time: 20:57 [facility] 12/11 20:57 Order name: EKG - Nurse/Tech; Complete Time: 20:57 [facility] 12/11 21:44 Order name: Cardiac monitoring; Complete Time: 21:46 id 12/11 21:44 Order name: IV Saline Lock; Complete Time: 22:37 id 12/11 21:44 Order name: Labs collected and sent; Complete Time: 22:37 id 12/11 21:44 Order name: O2 Sat Monitoring; Complete Time: 21:46 id 12/11 21:44 Order name: Urine Dipstick-Ancillary (obtain specimen); Complete Time: 22:01 id 12/12 08:22 Order name: Diet Regular; Complete Time: 08:23 iw Administered Medications: 12/11 22:40 Drug: NS 0.9% 1000 ml Route: IV; Rate: 1000 ml; Site: right antecubital; aa1 12/12 00:56 Follow up: IV Status: Completed infusion; IV Intake: 1000ml aa12/11 22:41 Drug: Tylenol 1000 mg Route: PO; aa1 12/12 00:58 Follow up: Response: No adverse reaction; Pain is decreased aa1 03:04 Drug: fentaNYL (PF) 25 mcg Route: IVP; Site: right antecubital; aa1 04:00 Follow up: Response: No adverse reaction; Pain is decreased aa1 Disposition: 12/12/18 12:35 Hospitalization ordered by Desiree Garcia for Inpatient Admission. Preliminary diagnosis are Syncope and collapse, Bradycardia, unspecified. - Bed requested for Telemetry/MedSurg (Inpatient). - Status is Inpatient Admission. hj - Condition is Stable. - Problem is new. - Symptoms have improved. UTI on Admission? No Critical care time excluding procedures: 07:33 Critical care time: Bedside Care: 20 minutes, Consultation: 15 minutes, Family wa Intervention: 10 minutes. Total time: 45 minutes Signatures: Dispatcher [employer] Yvonne Stewart RN RN aa1 Krishna Sanches MD MD rn Joaquin, Henry, RN RN Jairo Estrella MD MD wa Botello, Elizabeth eb Corrections: (The following items were deleted from the chart) 12:34 07:35 12/12/2018 07:35 Transfer ordered to Other Acute Care Facility. Diagnosis is rn Syncope and collapse; Pacemaker malfunction. Reason for transfer: Higher level of care. Accepting physician is Dr. Gutierrez. Condition is Fair. Problem is new. Symptoms have improved. id 13:39 12:35 Hospitalization Ordered by Desiree Garcia MD for Inpatient Admission. Preliminary eb diagnosis is Syncope and collapse; Bradycardia, unspecified. Bed requested for Telemetry/MedSurg (Inpatient). Status is Inpatient Admission. Condition is Stable. Problem is new. Symptoms have improved. UTI on Admission? No. rn 14:56 13:39 12/12/2018 12:35 Hospitalization Ordered by Desiree Garcia MD for Inpatient hj Admission. Preliminary diagnosis is Syncope and collapse; Bradycardia, unspecified. Bed requested for Telemetry/MedSurg (Inpatient). Status is Inpatient Admission. Condition is Stable. Problem is new. Symptoms have improved. UTI on Admission? No. eb
--- NOTE | 2018-12-12 08:26 | RAD REPORT ---
EXAM DESCRIPTION: RAD - Chest Single View - 12/11/2018 10:14 pm CLINICAL HISTORY: Syncope, shortness of breath COMPARISON: April 2018 TECHNIQUE: AP portable chest image was obtained 2211 hours . FINDINGS: Lungs are clear. Heart and vasculature are normal. No measurable pleural effusion and no p neumothorax. No acute bony abnormality seen. No acute aortic finding. Pacemaker remains in place. IMPRESSION: No acute cardiopulmonary process. No suspicious change from comparison.
--- NOTE | 2018-12-12 10:49 | RAD REPORT ---
EXAM DESCRIPTION: CT - Head Brain Wo Cont - 12/11/2018 10:31 pm Head Brain Wo Cont CLINICAL HISTORY: 78 years Female SYNCOPE COMPARISON: None TECHNIQUE: Contiguous axial images of the brain were obtained without the administration of intraven ous contrast.This exam was performed according to our departmental dose-optimization program which in cludes use of Automated Exposure Control, adjustment of the mA and/or kV according to patient size an d/or use of iterative reconstruction technique. FINDINGS: Brain: No acute intracranial hemorrhage. No extra-axial collection. No mass effect or jose e iation. Mild prominence of the sulci and cisterns Confluent periventricular and subcortical white m atter hypodensity is noted. Ventricles: Allowing for underlying cerebral volume loss, ventricular size appears within normal limi ts. Globes and orbits: No acute abnormality. Bones: No acute osseous finding. Paranasal sinuses: Paranasal sinuses are clear. Mastoid air cells: Well pneumatized. Soft tissues: Within normal limits [employer] view shows no additional significant finding IMPRESSION: No acute intracranial hemorrhage or herniation. Cerebral volume loss and chronic small vessel ischemic changes. If persistent clinical concern for ac [place] ischemia, consider MRI brain without contrast for further evaluation. Electronically signed by: Loy Dowd DO 12/11/2018 10:17 PM CDT Due to temporary technical issues with the PACS/Fluency reporting system, reports are being signed by the in house radiologist as a courtesy to ensure prompt reporting. The interpreting radiologist is f ully responsible for the content of the report.
[2018-12-12] MEDS ORDERED: ONDANSETRON 4 MG/2 ML VIAL IV PRN (15:07)
[2018-12-12] MEDS ORDERED: ACETAMINOPHEN 500 MG TAB PO PRN (15:07)
[2018-12-12 15:35] VITALS: BMI 27.3
[2018-12-12] MEDS: NA CHLORIDE 0.9% 1,000 ML IV SCH (15:51)
[2018-12-12] MEDS ORDERED: PRAMIPEXOLE DI HCL 1.5 MG PO SCH (18:00)
[2018-12-12] MEDS ORDERED: TRAMADOL HCL 50 MG TAB PO PRN (20:31)
[2018-12-12] MEDS ORDERED: SERTRALINE HCL 50 MG TAB PO SCH (21:00)
[2018-12-12] MEDS ORDERED: DONEPEZIL HCL PO SCH (21:00)
[2018-12-12] MEDS ORDERED: POTASSIUM CL SA 10 MEQ TAB PO ONE (21:00)
[2018-12-12] MEDS ORDERED: ATORVASTATIN 40 MG TAB PO SCH (21:00)
[2018-12-12] MEDS ORDERED: MEMANTINE HCL PO SCH (21:00)
--- NOTE | 2018-12-12 23:38 | HP ---
Date of Admission: 12/12/2018 Code Status: Full. Chief Complaint: Syncope. [employer] Operator: Dr. Ojeda with Cardiology. History Of Present Illness: The patient is a 78-year-old female with past medical history of sick si nus syndrome, status post pacemaker placement in 2017, chronic back pain, hypothyroidism, who was in her usual state of health until day prior to admission when the patient had sudden onset of syncope. The patient was eating with her family and then had a period of nonresponsiveness. No seizure-type activity. The patient was out for less than 20 seconds. The patient had another episode in the ER. The patient was dizzy, lightheaded. She denies any chest pain, nausea, vomiting, palpitations. The patient's symptoms are constant, moderate, progressively worsening. In the ER, the patient did have bradycardia as low as 30s. Her pacemaker was interrogated, showed that previously has had some vent ricular tachycardia episodes and SVT last month. Most recent data shows bradycardia in the 40s. The patient did not wish to be admitted to our facility, requested transfer to [facility]. The patient w as in fact accepted by Dr. Nunes, her film critic, and was awaiting a bed at [facility]. However, this was at last night when she came into the ER. However, this morning, [facility] c alled and stated that, as the patient's transfer was emergent and they have no bed availability, she would be taken off the wait list and recommended transfer to a different facility. The patient now i s agreeable to being admitted to our facility; however, still requesting transfer to [facility] once a dmitted. Past Medical History: Hypothyroidism, chronic back pain, sick sinus syndrome, status post pacemaker, thyroidectomy, hysterectomy. Allergies: NO KNOWN DRUG ALLERGIES. Medications: List reviewed. Social History: The patient denies any tobacco use, alcohol use, or illicit drug use. Lives at home . Currently independent. Has good social support. Family History: The patient's daughter also has sick sinus syndrome and pacemaker. Review of Systems: Ten-point system reviewed, negative except as per HPI. Physical Examination: Vital Signs: Blood pressure 127/85, pulse 72, respirations 18, temperature 97.8, O2 100% on room air . General: Awake, alert, oriented x3. Elderly female, not in any acute distress. HEENT: Normocephalic, atraumatic. PERRLA. EOMI. Moist mucous membranes. Oropharynx is clear. Co njunctivae anicteric. Neck: Supple. No JVD. Trachea midline. CV: S1, S2. Regular rate and rhythm. Peripheral pulses present. Respiratory: Clear to auscultation bilaterally. No wheezing or stridor. No use of accessory muscle s. Gastrointestinal: Abdomen is soft, nontender, nondistended. Positive bowel sounds. Extremities: No clubbing, cyanosis, or edema. No calf tenderness. Neuro: Cranial nerves 2 through 12 intact grossly. No focal neurological deficits. Speech is ghulam l. Skin: No rashes. Normal skin turgor. Psych: Mood is okay. Affect is full. Insight and judgment are good. Laboratory Data: Sodium 146, potassium 3.6, chloride 115, CO2 23, BUN 21, creatinine 0.83, glucose 1 30, calcium 8.4, magnesium 2.2. Troponin, less than 0.02. WBC 8.5, H and H 10.7 and 33, platelets 3 37, neutrophils 66%. UA; negative nitrite, trace leukocyte esterase, 5-10 wbc's, less than 20 bacter ia. INR 0.98. Urine culture pending. Imaging Studies: CT scan of the head, personally reviewed, shows no acute intracranial hemorrhage or herniation. Cerebral volume loss and chronic small-vessel ischemic changes present. Chest x-ray, p ersonally reviewed, shows no acute cardiopulmonary process, no suspicious change from comparison. Pa cemaker remains in place. Assessment: A 78-year-old female with 1.Syncope, likely due to pacemaker malfunction. The pacemaker has been interrogated. Dr. Nunes, the patient's film critic at [facility], recommends transfer for pacemaker evaluation. Currently, no beds are available. Dr. Ojeda of Cardiology has been consulted. We will place her on fall precaut ions. Check carotid artery ultrasound and orthostatic vital signs. No seizure-type activity noted. 2.Sick sinus syndrome, status post pacemaker. We will go over interrogation report. Currently show s bradycardia. Previously had showed supraventricular tachycardia and ventricular tachycardia. 3.Chronic pain syndrome, stable. 4.Hypothyroidism. We will continue Synthroid. 5.Gastrointestinal and deep vein thrombosis prophylaxis addressed. Plan: Admit the patient to Med-Surg, place as observation. SA/MODL Voice ID: [id number]
[2018-12-13] MEDS: NA CHLORIDE 0.9% 1,000 ML IV SCH (04:32)
[2018-12-13 04:51] LABS: Absolute Lymphocytes (CBC) 2.7 K/uL (0.7-4.9); Absolute Monocytes 0.4 K/uL (0.1-1.3); Absolute Neutrophil 3.6 K/uL (1.8-8.0); Basophils % 0.6 % (0-1.3); Eosinophils % 3.2 % (0-4.4); Hematocrit 30.9 % (36.0-45.0); Lymphocytes % 38.7 % (15.3-44.8); Monocytes % 5.3 % (3.3-12.3); RBC Red Blood Cell Count 3.85 M/uL (3.86-4.86)
[2018-12-13 05:05] LABS: Albumin 2.9 g/dL (3.4-5.0); Bilirubin Total 0.4 mg/dL (0.2-1.0); Magnesium 2.2 mg/dL (1.8-2.4); Phosphorus 2.8 mg/dL (2.5-4.9); Potassium 3.9 mmol/L (3.5-5.1)
[2018-12-13] MEDS ORDERED: LEVOTHYROXINE SOD 0.075 MG TAB PO SCH (06:00)
[2018-12-13] MEDS ORDERED: PANTOPRAZOLE 40MG TABLET PO SCH (07:30)
[2018-12-13] MEDS ORDERED: ASPIRIN EC 81 MG TAB PO SCH (09:00)
[2018-12-13] MEDS ORDERED: CLOPIDOGREL BISULFATE 300 MG PO SCH (09:00)
[2018-12-13] MEDS ORDERED: POTASSIUM CL SA 10 MEQ TAB PO ONE (09:00)
--- NOTE | 2018-12-13 09:15 | RAD REPORT ---
EXAM DESCRIPTION: USCarotid Artery Bilateral12/13/2018 8:30 am CLINICAL HISTORY: Syncope COMPARISON: 2017 FINDINGS: The velocity of the right internal carotid artery equals 130 cm/sec. The right ICA/CCA rat io 1.5. The distal right internal carotid artery is tortuous. This accounts for the elevated velocity The velocity of the left internal carotid artery equals 117 go cm/sec. The left ICA/CCA ratio 1.3 Mild plaque is present within the carotid arteries. The vertebral arteries demonstrate antegrade flow IMPRESSION: Mild plaque within the carotid arteries without evidence of a hemodynamically significan t stenosis NASCET criteria used. Mild 0-49% stenosis Moderate 50-69% stenosis Severe 70-99% stenosis
[2018-12-13 11:46] VITALS: BP 146/66; TEMP 99.2
[2018-12-13 14:23] VITALS: O2SAT 94
[2018-12-13] MEDS ORDERED: CARVEDILOL 3.125 MG TAB PO SCH (18:00)
--- NOTE | 2018-12-14 05:25 | DS ---
Date of Discharge: 12/13/2018 Home And School Visitor: Dr. Ojeda with Cardiology. Procedures: None. Discharge Diagnoses: 1.Syncope. 2.Bradycardia. 3.Sick sinus syndrome. 4.Chronic pain syndrome. 5.Hypothyroidism. Hospital Course: The patient is a 78-year-old female, comes in with syncopal episode, has history of sick sinus syndrome with pacemaker placement. The patient's pacemaker was interrogated, revealed SV T and sinus bradycardia. The patient was attempted to be transferred in the ER by an d was accepted to [facility] by Dr. Nunes. However, due to no bed availability, she had to be admit emiliana. The patient and daughter were adamant that they did not wish to see Dr. Ojeda with Cardiology, however, agreed to see him due to the urgent nature of her disease process. However, once Dr. Reanna suresh saw the patient, the daughter declined for him to evaluate the patient and therefore he signed off the case. The patient was started on low-dose beta blockers. She did not have any further episodes of SVT. She was then attempted to be transferred to [facility]. Bed was available. The patient was accepted by the hospitalist with whom I completed the [id number]. The patient was then doing w ell, did not have any further syncopal episodes. Carotid artery ultrasound was obtained, which showe d mild plaque in the carotid arteries without evidence of hemodynamically significant stenosis. The patient's heart rate dipped as low as 47, however, remained stable, otherwise. She did not have any sinus pauses or near syncopal episodes. The patient was then transferred to [facility] as a bed had b ecome available. Physical Examination: General: Awake, alert, oriented x3. Elderly female, no acute distress. CV: S1, S2. No murmurs. Respiratory: Moving air well bilaterally. No wheezing. Gastrointestinal: Abdomen is soft, nontender, nondistended. Positive bowel sounds. Extremities: No clubbing, cyanosis, or edema. SA/MODL Voice ID: [id number] Report ID: [id number]
== END 2018-12-13 15:28 | disposition short-term general hospital (02) ==
LOC: ER 20:41 → ERHOLD 12-12 12:44 → 2ND 12-12 14:34
PROVIDERS: ADMIT Family Medicine; ATTEND Family Medicine
DX: R55 Syncope and collapse (principal); R00.1 Bradycardia, unspecified; F41.9 Anxiety disorder, unspecified; F03.90 Unspecified dementia, unspecified severity, without behavioral disturbance, psychotic disturbance, mood disturbance, and anxiety; K21.9 Gastro-esophageal reflux disease without esophagitis; I10 Essential (primary) hypertension; E03.9 Hypothyroidism, unspecified; Z79.82 Long term (current) use of aspirin
CPT/HCPCS: 96361; 93005; 87088; 85025 ×2; 87086; 80048; 36415 ×2; 83735 ×2; 84100; 85610; 82962; 80076; 84484; 83690; 80053; 70450; 71045; 93880; 94760 ×3; 96374; 99285; J3010; J7030 ×3; 81003; 81015

== ENCOUNTER 2019-04-16 20:17 | Emergency (ER) | payer OTHER ==
--- OUTSIDE RECORDS SUMMARY | 2019-04-16 20:20 | XMS REPORT | Clinical Summary ---
:1940 Author Organization [facility] Address [address] [place] [address] Care Team Providers Name Role Phone Jairo Landon MD Primary Care Provider Allergies No Known Allergies Medications Medication Sig Dispensed Refills Start Date End Date Status pramipexole Take 1.5 mg by 0 04/27/2017 Active (MIRAPEX) 1.5 MG mouth daily. tablet pantoprazole Take 40 mg by 0 03/27/2017 Active (PROTONIX) 40 MG EC mouth daily. tablet levothyroxine Take 75 mcg by 0 Active (SYNTHROID, mouth daily. LEVOXYL) 75 mcg tabletIndications: Takes 5 times a week: Sunday through Sunday levothyroxine Take 88 mcg by 0 04/13/2017 Active (SYNTHROID, mouth daily. LEVOXYL) 88 mcg tabletIndications: Takes every Sunday and Sunday omega Take by mouth. 0 Active 8-gua-mwp-fish oil 100-160-1,000 mg capsule traMADol (ULTRAM) as needed. 0 11/16/2017 Active 50 mg tablet aspirin (ECOTRIN) Take 81 mg by 0 Active 81 MG enteric mouth daily. coated tablet memantine-donepezil Take by mouth 0 Active (NAMZARIC) 28-10 mg nightly. capsule,sprinkle,ER 24hr ubidecarenone (CO Take by mouth. 0 Active Q-10 ORAL) sertraline (ZOLOFT) Take 50 mg by 0 Active 50 MG tablet mouth nightly. atorvastatin Take 40 mg by 0 Active (LIPITOR) 40 MG mouth daily. tablet clopidogrel Take 75 mg by 0 Active (PLAVIX) 75 mg mouth daily. tablet calcium acetate Take 1,334 mg 0 Active (PHOSLO) 667 mg by mouth 3 capsule (three) times a week. Takes 3 times a week MWF atorvastatin TAKE 1 TABLET 90 tablet 3 12/24/2018 Active (LIPITOR) 40 MG BY MOUTH ONCE tablet DAILY lisinopril TAKE 1 TABLET 90 tablet 3 12/24/2018 Active (PRINIVIL,ZESTRIL) BY MOUTH ONCE 20 mg tablet DAILY clopidogrel TAKE 1 TABLET 90 tablet 3 01/15/2019 Active (PLAVIX) 75 mg BY MOUTH ONCE tablet DAILY meloxicam (MOBIC) Take 15 mg by 2 02/26/2019 Active 15 mg tablet mouth daily. carvedilol (COREG) Take 1 tablet 60 tablet 11 04/01/2019 03/31/2020 Active 3.125 MG tablet (3.125 mg total) by mouth 2 (two) times a day with meals. sertraline (ZOLOFT) Take 150 mg by 0 02/10/2017 12/13/2018 Discontinued 25 MG tablet mouth daily. atorvastatin Take 1 tablet 90 tablet 3 11/30/2017 12/23/2018 Discontinued (LIPITOR) 40 MG (40 mg total) tablet by mouth daily. clopidogrel Take 1 tablet 30 tablet 11 11/30/2017 01/14/2019 Discontinued (PLAVIX) 75 mg (75 mg total) tablet by mouth daily. amLODIPine Take 1 tablet 30 tablet 11 01/01/2018 01/14/2019 Discontinued (NORVASC) 5 mg (5 mg total) tablet by mouth daily. lisinopril Take 1 tablet 90 tablet 3 01/09/2018 12/23/2018 Discontinued (PRINIVIL,ZESTRIL) (20 mg total) 20 mg tablet by mouth daily. cetirizine (ZyrTEC) Take 10 mg by 0 12/13/2018 Discontinued 10 MG tablet mouth daily. vit B comp Take 1 tablet 0 12/13/2018 Discontinued no.2-yezvh-N-biotin by mouth (NEPHRO-MARY LOU RX) daily. 1-60-300 mg-mg-mcg tablet cefpodoxime Take 1 tablet 20 tablet 0 [...] every 6 (six) hours for 5 days. 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 classified 2018 elsewhere Kidney stone 09/26/2018 Alzheimer's disease 07/10/2017 SSS (sick sinus syndrome) 07/10/2017 Overview: Overview: Pacemaker placed 04/2017 Cardiac pacemaker in situ 06/07/2017 Overview: Increased [...] 11/27/2013 Leg pain, bilateral 11/27/2013 Scoliosis 11/27/2013 Postsurgical hypothyroidism 01/29/2013 Encounters Date Type Specialty Care Team Description 04/01/2019 Office Visit Cardiology Casey Salguero (Primary Quintin Magaña) 01/14/2019 Refill Cardiology Alexandra Med Refill Jose Jorge MD 01/09/2019 Transcribe Orders Lab Dave Leyva Polyarthritis MD (Primary Dx) 12/23/2018 Refill Cardiology Ander Salguero Refill Jose Jorge MD 12/13/2018 - Hospital Encounter General Internal LatrellJeanmarie Bradycardia ( Primary Dx); 12/16/2018 Paul Daniel MD Cardiac pacemaker in situ 12/12/2018 Intake Access N/A 12/12/2018 Intake Access N/A 09/10/2018 Emergency Emergency Medicine Re[place], [place] Renal calculus, left ( Primary Dx); DO Yuriy Hematuria, unspecified type; Acute left flank pain after 04/15/2018 Family History Relation Name Status Comments Father [...] Vital Sign Reading Time Taken Blood Pressure 142/71 04/01/2019 11:19 AM CDT Pulse 95 04/01/2019 11:19 AM CDT Temperature 36.7 C (98 F) 12/16/2018 4:41 PM CDT Respiratory Rate 18 12/16/2018 4:41 PM CDT Oxygen Saturation 98% 12/16/2018 4:41 PM CDT Inhaled Oxygen Concentration - - Weight 62.6 kg (138 lb) 04/01/2019 11:19 AM CDT Height 154.9 cm (5' 1") 09/10/2018 1:49 PM GEOTHERMAL POWERPLANT MECHANIC HELPER Body Mass Index 26.07 09/10/2018 1:49 PM GEOTHERMAL POWERPLANT MECHANIC HELPER Plan of Treatment Date Type Specialty Care Team Description 05/06/2019 Office Visit Cardiology Jose Salguero MD [address] [address] Health Maintenance Due Date Last Done Comments SHINGLES VACCINES (#1) 1989 65+ PNEUMOCOCCAL VACCINE (1 of 2 - PCV13) 2004 INFLUENZA VACCINE 04/10/2019 Implants Implanted Type Area Design Intern Device Shelf Model / Identifier Expiration Serial / Date Lot Pacemaker Clinical Support Manager Mri 2chmbr W/ Is-1 Uni/Bi Conn Advisa - [id number] - [id number] Cardiac N/A: [employer] 10/07/2018 [id number] / Implanted: Qty: 1 on 05/17/2017 by Jose Salguero MD Pacemaker N/A CARDIAC RHYTHM [id number] / Generators DISEASE MGMT [id number] Lead, Pacemaker Atrial And Ventricular 58 Centimeter Capsure Fix Novus System - [id number] - [id number] Cardiac Pacing N/A: [employer] [facility] 01/18/2019 [id number] / Implanted: Qty: 1 on 05/17/2017 by Jose Salguero MD Leads or N/A [employer] [id number] / Electrodes or [id number] Accessories Lead, Pacemaker Bipolar Fix Forming Atrial And Ventricular Steroid Eluting 52 Centimeter Capsure Fix Novus - [id number] - [id number] Cardiac Pacing N/A: [employer] [facility] 02/13/2019 [id number] / Implanted: Qty: 1 on 05/17/2017 by Jose Salguero MD Leads or N/A [employer] [id number] / Electrodes or [id number] Accessories Pacemaker Pacemaker Procedures Procedure Name Priority Date/Time Associated Comments Diagnosis ECG 12-LEAD Routine 04/01/2019 11:20 Bradycardia Results for this AM CDT procedure are in the results section. ECHOCARDIOGRAM 2D Routine 12/16/2018 12:08 Results for this COMPLETE W MMODE PM CDT procedure are in SPECTRAL COLOR DOPPLER the results (25434) section. HC COMPLETE BLD COUNT Routine 12/16/2018 4:10 Results for this W/AUTO DIFF AM CDT procedure are in the results section. XR CHEST 1 VW PORTABLE Routine 12/14/2018 10:49 Results for this AM CDT procedure are in the results section. POC GLUCOSE Routine 12/14/2018 8:17 Results for this AM CDT procedure are in the results section. TROPONIN Routine 12/14/2018 12:08 Results for this AM CDT procedure are in the results section. T4, FREE Routine 12/14/2018 12:08 Results for this AM CDT procedure are in the results section. THYROID STIMULATING Routine 12/14/2018 12:08 Results for this HORMONE AM CDT procedure are in the results section. ESTIMATED GFR Timed 12/13/2018 9:31 Results for this PM CDT procedure are in the results section. HC COMPLETE BLD COUNT Timed 12/13/2018 9:31 Results for this W/AUTO DIFF PM CDT procedure are in the results section. BASIC METABOLIC PANEL Timed 12/13/2018 9:31 Results for this PM CDT procedure are in the results section. TROPONIN Timed 12/13/2018 9:31 Results for this PM CDT procedure are in the results section. ECG 12-LEAD STAT 12/13/2018 9:05 Results for this PM CDT procedure are in the results section. ED REFERRAL TO VOLIN Routine 09/10/2018 4:50 EPISCOPAL PHYSICIAN PM GEOTHERMAL POWERPLANT MECHANIC HELPER ORGANIZATION CT RENAL STONE PROTOCOL STAT 09/10/2018 3:53 Results for this PM [employer]OTHERMAL POWERPLANT MECHANIC HELPER procedure are in the results section. ESTIMATED GFR STAT 09/10/2018 3:35 Results for this PM [employer]OTHER[employer]AL POWERPLANT MECHANIC HELPER procedure are in the results section. AMYLASE LEVEL STAT 09/10/2018 3:35 Results for this PM [employer]OTHERMAL POWERPLANT MECHANIC HELPER procedure are in the results section. LIPASE LEVEL STAT 09/10/2018 3:35 Results for this PM [employer]OTHERMAL POWERPLANT MECHANIC HELPER procedure are in the results section. COMPREHENSIVE METABOLIC STAT 09/10/2018 3:35 Results for this PANEL PM GEOTHERMAL POWERPLANT MECHANIC HELPER procedure are in the results section. HC COMPLETE BLD COUNT STAT 09/10/2018 3:35 Results for this W/AUTO DIFF PM GEOTHERMAL POWERPLANT MECHANIC HELPER procedure are in the results section. URINALYSIS SCREEN AND Routine 09/10/2018 2:50 Results for this MICROSCOPY, WITH REFLEX PM [employer]OTHERMAL POWERPLANT MECHANIC HELPER procedure are in TO CULTURE the results section. GRAM STAIN Routine 09/10/2018 2:50 Results for this PM [employer]OTHERMAL POWERPLANT MECHANIC HELPER procedure are in the results section. URINE CULTURE Routine 09/10/2018 2:50 Results for this PM GEOTHERMAL POWERPLANT MECHANIC HELPER procedure are in the results section. ECHOCARDIOGRAM 2D Routine 05/02/2018 4:50 Results for this COMPLETE W MMODE PM CDT procedure are in SPECTRAL COLOR DOPPLER the results (99631) section. after 04/15/2018 Results ECG 12 lead (04/01/2019 11:20 AM CDT)Only the most recent of2 resultswithin the time period is included. Ventricular rate 100 [facility] Atrial rate 100 [facility] AR interval 218 [facility] QRSD interval 92 [facility] QT interval 360 [facility] QTC interval 464 [facility] P axis 1 62 [facility] QRS axis 1 90 [facility] T wave axis 31 [facility] EKG impression Atrial-paced rhythm with prolonged AV conduction-Rightward axis -Abnormal ECG-In automated comparison with ECG of 13-DEC-2018 21:05,-Electronic atrial pacemaker has replaced Sinus rhythm-Vent. rate has i [facility] M[facility] ncreased BY38 BPM-Questionable change in QRS axis- Specimen Narrative Performed At Performing Organization Address City/State/Zipcode Phone Number [facility] [address] [place] [address] Echocardiogram complete w contrast and 3D if needed (12/16/2018 12:08 PM CDT) Specimen Narrative Performed At [facility] Echocardiography Report [address] [place] [address] Pat.Name:JOAN ABRAMS.ID:[id number] .Date: 12/16/2018Refer.MD:JEANMARIE ALONZO MD Exam Time: 11:18:00 AM Study Type:Routine Echo Height:154.94cmWeight:62 kg BSA: 1.61 m2 DOBAge:1940,78Y Sex: FEMALEBP:133/86 HR:70 bpm Sonogrphr: Yuliana Beyer RDCS, RVT Pat. Stat.:Inpatient Room:[address] Study Status:Final Echo Event ID:[id number] Order ID:[id number] Reason for Study:Syncope History / Clinical:H/o SSS, S/p PPM 2017, Bradycardia, Pre-syncope Procedures:2D Echo, Colorflow Doppler Race:C SUMMARY: LV EF is hyperdynamic. Estimated EF is >70%. LV filling pressure is normal. Estimated PA systolic pressure is 28 mmHg, assuming a mean RAP of 5 mmHg. FINDINGS: LV: LV size is normal. Concentric left ventricular remodeling withbasal septal hypertrophy. LV EF is hyperdynamic. Overallwall motion is hyperdynamic. Estimated EF is >70%. RV: RV size is normal. A pacemaker wire is seen in the RV. RV systolicfunction is normal. LA: LA size is normal. RA: RA volume is normal. A pacemaker wire is seen. AO: Ascending aorta diameter is normal. SASCHA: No pericardial effusion. IAS:Interatrial septum is redundant. AV: No structural AV abnormalities noted. MV: No structural MV abnormalities noted. PV: No structural PV abnormalities noted. TV: No structural TV abnormalities noted. Mild tricuspid regurgitation Adam: LV filling pressure is normal. Other:Estimated PA systolic pressure is 28 mmHg, assuming a mean RAPof 5 mmHg. MEASUREMENTS: 2D Parasternal [place] LVOT 2 cmLA Ds3.3 cm LVIDd3.2 cmIndex2 cm/m Ao Rtd 3.1 cm Index1.9 cm/m LVIDs1.5 cmLV Mass 74.3 g(87-129) LV%fs 55 % LVM Index 79.8 g/m2 IVSd 0.9 cmRWT0.5 LVPWd0.9 cm LA Sng Plane LA Area 17.1 cm2(8.8-23.4) LA Vol50.8 ml Index31.5 ml/m LA LngAx 4.8 cm RA Sng Plane RA Area 14.6 cm2(8.3-19.5) RA Vol39.2 ml Index24.3 ml/m RA LngAx 4.6 cm Aorta Ao Asc 3.1 cm (2.1-3.4) DOPPLER LVOT For Flow LVOT Area3.1 cm2 LVOT SV 58.4 ml LVOTpkVel 96.4 cm/sHR83.8 bpm LVOTpkPG 3.7 mmHgLVOT CO4.9 l/min LVOTmnPG 2.5 mmHgLVOT CI5.3 l/m/m2 LVOT TVI18.6 cm Signed 12/16/2018 03:35 PM Nishant Cyr M.D. Procedure Note Interface, Radiology Results In - 12/16/2018 3:36 PM CDT Echocardiography Report [address] [place] [address] Pat.Name: JOAN ABRAMS Pat.ID: [id number] St.Date: 12/16/2018 Refer.MD: JEANMARIE ALONZO MD Exam Time: 11:18:00 AM Study Type:Routine Echo Height: 154.94cm Weight: 62kg BSA: 1.61 m2 Age: 8 1940,78Y Sex: FEMALE BP: 133/86 HR: 70 bpm Sonogrphr: Yuliana Beyer RDCS, RVT Pat. Stat.:Inpatient Room: [address] Study Status:Final Echo Event ID:[id number] Order ID: [id number] Reason for Study:Syncope History / Clinical:H/o SSS, S/p PPM 2017, Bradycardia, Pre-syncope Procedures:2D Echo, Colorflow Doppler Race: C SUMMARY: LV EF is hyperdynamic. Estimated EF is >70%. LV filling pressure is normal. Estimated PA systolic pressure is 28 mmHg, assuming a mean RAP of 5 mmHg. FINDINGS: LV: LV size is normal. Concentric left ventricular remodeling with basal septal hypertrophy. LV EF is hyperdynamic. Overall wall motion is hyperdynamic. Estimated EF is >70%. RV: RV size is normal. A pacemaker wire is seen in the RV. RV systolic function is normal. LA: LA size is normal. RA: RA volume is normal. A pacemaker wire is seen. AO: Ascending aorta diameter is normal. SASCHA: No pericardial effusion. IAS: Interatrial septum is redundant. AV: No structural AV abnormalities noted. MV: No structural MV abnormalities noted. PV: No structural PV abnormalities noted. TV: No structural TV abnormalities noted. Mild tricuspid regurgitation Adam: LV filling pressure is normal. Other: Estimated PA systolic pressure is 28 mmHg, assuming a mean RAP of 5 mmHg. MEASUREMENTS: 2D Parasternal [place] LVOT 2 cm LA Ds 3.3 cm LVIDd 3.2 cm Index 2 cm/m Ao Rtd 3.1 cm Index 1.9 cm/m LVIDs 1.5 cm LV Mass 74.3 g (87-129) LV%fs 55 % LVM Index 79.8 g/m2 IVSd 0.9 cm RWT 0.5 LVPWd 0.9 cm LA Sng Plane LA Area 17.1 cm2 (8.8-23.4) LA Vol 50.8 ml Index 31.5 ml/m LA LngAx 4.8 cm RA Sng Plane RA Area 14.6 cm2 (8.3-19.5) RA Vol 39.2 ml Index 24.3 ml/m RA LngAx 4.6 cm Aorta Ao Asc 3.1 cm (2.1-3.4) DOPPLER LVOT For Flow LVOT Area 3.1 cm2 LVOT SV 58.4 ml LVOTpkVel 96.4 cm/s HR 83.8 bpm LVOTpkPG 3.7 mmHg LVOT CO 4.9 l/min LVOTmnPG 2.5 mmHg LVOT CI 5.3 l/m/m2 LVOT TVI 18.6 cm Signed 12/16/2018 03:35 PM Nishant Cyr M.D. Performing Organization Address City/[facility]/Zipcode Phone Number [facility] [address] [place] [address] CBC with platelet and differential (12/16/2018 4:10 AM CDT)Only the most recent of3 resultswithin the time period is included. WBC 8.02 4.50 - 11.00 [facility] k/uL HOSPITAL RBC 4.35 4.20 - 5.50 [facility] m/uL [facility] HGB 10.9 (L) 12.0 - 16.0 [facility] gdL [facility] HCT 37.1 37.0 - 47.0 % [facility] MCV 85.3 82.0 - 100.0 [facility] MCH 25.1 (L) 27.0 - 34.0 pg [facility] MCHC 29.4 (L) 31.0 - 37.0 [facility] gdL [facility] RDW - SD 44.1 37.0 - 55.0 fL [facility] MPV 10.0 8.8 - 13.2 fL [facility] Platelet count 336 150 - 400 k/uL [facility] Nucleated RBC 0.00 /100 WBC [facility] Neutrophils 49.4 39.0 - 69.0 % [facility] Lymphocytes 39.7 25.0 - 45.0 % [facility] Monocytes 6.6 0.0 - 10.0 % [facility] Eosinophils 3.2 0.0 - 5.0 % [facility] Basophils 0.6 0.0 - 1.0 % [facility] Immature granulocytes 0.5Comment: 0.0 - 1.0 % [facility] "Immature [facility] granulocytes" (promyelocytes , myelocytes, metamyelocytes ) Specimen Blood Performing Organization Address [facility]/Zipcode Phone Number [facility] DEPARTMENT OF PATHOLOGY AND [address] [place] [address] GENOMIC MEDICINE [facility] [address] [place] [address] XR Chest 1 Vw Portable (12/14/2018 10:49 AM CDT) Specimen Narrative Performed At EXAMINATION:XR CHEST 1 VW PORTABLE [facility] CLINICAL HISTORY:syncopeassess LV lead position COMPARISON:June 07, 2017 IMPRESSION: 1. The heart and pulmonary vasculature are within normal limits. 2. No infiltrate or effusion is demonstrated. 3. There is no acute osseous pathology. Dual-lead cardiac pacemaker is in a stable position. CONCLUSION: NO RADIOGRAPHIC EVIDENCE OF ACUTE CARDIOPULMONARY ABNORMALITY. [facility]-[id number] Procedure Note Hm Interface, Radiology Results Incoming - 12/14/2018 10:54 AM CDT EXAMINATION: XR CHEST 1 VW PORTABLE CLINICAL HISTORY: syncope assess LV lead position COMPARISON: June 07, 2017 IMPRESSION: 1. The heart and pulmonary vasculature are within normal limits. 2. No infiltrate or effusion is demonstrated. 3. There is no acute osseous pathology. Dual-lead cardiac pacemaker is in a stable position. CONCLUSION: NO RADIOGRAPHIC EVIDENCE OF ACUTE CARDIOPULMONARY ABNORMALITY. [facility]-[id number] Performing Organization Address City/State/Zipcode Phone Number [facility] [address] [place] [phone] POC glucose (12/14/2018 8:17 AM CDT) [facility] POC glucose 94 65 - 99 mg/dL [facility] Comment: HOSPITAL [facility] Notified RN Meter ID: [id number] Professor Of Biochemistry: Jovon Russell Specimen Performing Organization Address City/[facility] Phone Number [facility] DEPARTMENT OF PATHOLOGY AND [address] [place] [phone] Troponin (12/14/2018 12:08 AM CDT)Only the most recent of2 resultswithin the time period is included. [facility] Troponin <0.30 0.00 - 0.30 [facility] Comment: ng/mL HOSPITAL 0.30 - 1.49 ng/mlMay indicate increased risk of acute coronary syndrome. >=1.5 ng/mlConsistent with acute myocardial infarction. The diagnostic value of a single normal or non-diagnostic result is questionable.Serial samples at 2-6 hour intervals are required to rule out acute myocardial injury. Specimen Plasma specimen Performing Organization Address City/[facility]/Zipcode Phone Number [facility] DEPARTMENT OF PATHOLOGY AND [address] [place] [phone] Thyroid stimulating hormone (12/14/2018 12:08 AM CDT) [facility] TSH 2.13 0.27 - 4.20 uIU/mL [facility] Specimen Plasma specimen Performing Organization Address City/[facility] Phone Number [facility] DEPARTMENT OF PATHOLOGY AND [address] [place] [id number] [place] [address] T4, free (12/14/2018 12:08 AM CDT) T4, free 1.0 0.9 - 1.7 ng/dL [facility] Specimen Plasma specimen Performing Organization Address City/[facility] Phone Number [facility] DEPARTMENT OF PATHOLOGY AND [address] [place] [phone] Estimated GFR (12/13/2018 9:31 PM CDT)Only the most recent of2 resultswithin the time period is included. Pathologist [facility] Estimated GFR 83 mL/min/1.73 [facility] Comment: HOSPITAL CatergoryUnitsInterpretation G1 >=90 Normal or high G2 60-89Mildly decreased [id number] to moderately decreased S6b77-96Lfzhssiegb to severely decreased G4 15-29Severely decreased G5 <15Kidney failure The eGFR was calculated using the Chronic Kidney Disease Epidemiology Collaboration (CKD-EPI) equation. Interpretation is based on recommendations of the National Kidney Foundation-Kidney Disease Outcomes Quality Initiative (NKF-KDOQI) published in 2014. Specimen Plasma specimen Performing Organization Address City/[facility] Phone Number [facility] DEPARTMENT OF PATHOLOGY AND [address] [place] [phone] Basic metabolic panel (12/13/2018 9:31 PM CDT) [facility] Sodium 141 135 - 148 mEq/L [facility] Potassium 4.1 3.5 - 5.0 mEq/L [facility] Chloride 108 98 - 112 mEq/L [facility] CO2 20 (L) 24 - 31 mEq/L [facility] Anion gap 13@ANIO 7 - 15 mEq/L [facility] BUN 15 8 - 23 mg/dL [facility] Creatinine 0.68 0.50 - 0.90 mg/dL [facility] Glucose 137 (H) 65 - 99 mg/dL [facility] Calcium 9.2 8.8 - 10.2 mg/dL [facility] Specimen Plasma specimen Performing Organization Address City/State/Zipcode Phone Number [facility] DEPARTMENT OF PATHOLOGY AND [address] [place] [address] GENOMIC MEDICINE [facility] [address] [place] [address] CT Renal Stone Protocol (09/10/2018 3:53 PM GEOTHERMAL POWERPLANT MECHANIC HELPER) Specimen Narrative Performed At EXAMINATION:CT RENAL STONE PROTOCOL [...] to 2 mm nonobstructing calyceal calcifications bilaterally [facility]-[id number] Procedure Note Interface, Radiology Results Incoming - 09/10/2018 3:58 PM GEOTHERMAL POWERPLANT MECHANIC HELPER EXAMINATION: CT RENAL STONE PROTOCOL CLINICAL HISTORY: [...] to 2 mm nonobstructing calyceal calcifications bilaterally [facility]-[id number] Performing Organization Address City/[facility]/Zipcode Phone Number [address] [address] Lipase level (09/10/2018 3:35 PM GEOTHERMAL POWERPLANT MECHANIC HELPER) Lipase 47 13 - 60 U/L [facility] Specimen Plasma specimen Performing Organization Address City/[facility] Phone Number [facility] DEPARTMENT OF PATHOLOGY AND [address] [place] [address] Amylase level (09/10/2018 3:35 PM GEOTHERMAL POWERPLANT MECHANIC HELPER) Amylase 79 28 - 100 U/L [facility] Specimen Plasma specimen Performing Organization Address City/[facility] Hospitalcosd Phone Number [facility] DEPARTMENT OF PATHOLOGY AND [address] [place] [phone] Comprehensive metabolic panel (09/10/2018 3:35 PM GEOTHERMAL POWERPLANT MECHANIC HELPER) Sodium 142 135 - 148 [facility] mEq/L [facility] Potassium 4.9 3.5 - 5.0 [facility] mEq/L [facility] Chloride 105 98 - 112 mEq/L [facility] CO2 25 24 - 31 mEq/L [facility] Anion gap 12@ANIO 7 - 15 mEq/L [facility] BUN 26 (H) 8 - 23 mg/dL [facility] Creatinine 0.80 0.50 - 0.90 [facility] mg/dL HOSPITAL Glucose 69 65 - 99 mg/dL [facility] Calcium 10.0 8.8 - 10.2 [facility] mg/dL HOSPITAL Protein 7.3 6.3 - 8.3 g/dL [facility] Comment: HOSPITAL 4.6-7.0 g/dL 1 week 4.4-7.6 g/dL 7 months-1year5.1-7.3 g/dL 1-2 years5.6-7.5 g/dL >3 years6.0-8.0 g/dL 18-150 6.3-8.3 g/dL Albumin 3.6 3.5 - 5.0 g/dL [facility] A/G ratio 1.0 0.7 - 3.8 [facility] Alkaline phosphatase 72 35 - 104 U/L [facility] AST 24 10 - 35 U/L [facility] ALT 25 5 - 50 U/L [facility] Total bilirubin 0.3 0.0 - 1.2 [facility] mg/dL HOSPITAL Specimen Plasma specimen Performing Organization Address City/[facility] Phone Number [facility] DEPARTMENT OF PATHOLOGY AND [address] [place] [id number] [place] [address] [address] Urinalysis screen and microscopy, with reflex to culture (09/10/2018 2:50 PM [employer]IC HELPER) Specimen site Clean catch [facility] Color, UA Yellow [facility] Appearance, UA Hazy [facility] Specific gravity, UA 1.021 1.001 - 1.035 [facility] pH, UA 5.0 5.0 - 8.5 [facility] Protein, UA 2+ (A) Negative [facility] Glucose, UA Negative Negative [facility] Ketones, UA Negative Negative [facility] Bilirubin, UA Negative Negative [facility] Blood, UA Large (A) Negative [facility] Nitrite, UA Negative Negative [facility] Urobilinogen, UA <2.0 <2.0 [facility] Leukocyte esterase, Trace (A) Negative [facility] Epithelial cells, UA 1 /HPF [facility] WBC, UA 18 (H) 0 - 4 /HPF [facility] RBC, UA >180 (H) 0 - 5 /HPF [facility] Bacteria, UA Few None seen [facility] Yeast, UA None seen [facility] Yeast with None seen [facility] pseudohyphae, [facility] Hyaline casts, UA 7 /LPF [facility] Specimen Urine Performing Organization Address City/[facility] Hospital[facility]d Phone Number [facility] DEPARTMENT OF PATHOLOGY AND [address] [place] [address] [address] [address] Gram stain (09/10/2018 2:50 PM [employer]CH[employer]IC HELPER) Gram stain result No WBC's or organisms seen. [facility] Comment: HOSPITAL Specimen Information Specimen Source: Urine Specimen Site: Clean catch Specimen Urine Performing Organization Address City/[facility]/Zipcode Phone Number [facility] DEPARTMENT OF PATHOLOGY AND [address] [place] [phone] [place] [address] Urine culture (09/10/2018 2:50 PM [employer]CH[employer]IC HELPER) Urine culture Mixed efren <=10-3 col/cc [facility] isolate Comment: HOSPITAL Specimen Information Specimen Source: Urine Specimen Site: Clean catch Specimen Urine Performing Organization Address [facility]/Zipcode Phone Number [facility] DEPARTMENT OF PATHOLOGY AND [address] [place] [address] Echocardiogram complete w contrast and 3D if needed (05/02/2018 4:50 PM CDT) Specimen Narrative Performed At [facility] Echocardiography Report Pat.Name:JOAN ABRAMS Pat.ID:[id number] .Date: 05/02/2018 Refer.MD:JOSE SALGUERO MD Exam Time: 3:38:00 PMStudy Type:Routine Echo Height:60inWeight: 125lb BSA: 1.53 m2 DOBAge:1940,78Y Sex: FEMALEBP:107/52 HR:90 bpm Sonogrphr: CHRIS Hagen FASE Pat. Stat.:OutpatientRoom:[place] [address] Study Status:Final Echo Event ID:[id number] Order ID:[id number] Reason for Study:Myocardial Ischemia/ Infarction Procedures:2D Echo, Colorflow Doppler Race:C SUMMARY: No evidence of ND FINDINGS: LV: LV size is normal. There [...] of 5 mmHg. MEASUREMENTS: 2D Parasternal [place] LVOT 1.7 cmLA Ds3.3 cm LVIDd4.1 cmIndex2.7 cm/m Ao An1.8 cm LVIDs2.4 cmAo Rtd 3 cm Index1.9 cm/m LV%fs 41.9 % LV Ycyc791.3 g(87-129) IVSd 1.5 cmRWT0.4 LVPWd0.8 cm LA Sng Plane LA Area 15.4 cm2(8.8-23.4) LA Vol44.4 ml Index29 ml/m LA LngAx 4.5 cm Signed 05/03/2018 10:57 AM Judith Carrillo M.D. Procedure Note Interface, Radiology Results In - 05/03/2018 10:57 AM CDT [facility] Echocardiography Report Pat.Name: JOAN ABRAMS.ID: [id number] .Date: 05/02/2018 Refer.MD: JOSE SALGUERO MD Exam Time: 3:38:00 PM Study Type:Routine Echo Height: 60in Weight: 125lb BSA: 1.53 m2 Age: 8 1940,78Y Sex: FEMALE BP: 107/52 HR: 90 bpm Sonogrphr: CHRIS Hagen FASE Pat. Stat.:Outpatient Room: [place] [address] Study Status:Final Echo Event ID:[id number] Order ID: [id number] Reason for Study:Myocardial Ischemia/ Infarction Procedures:2D Echo, Colorflow Doppler Race: C SUMMARY: No evidence of ND FINDINGS: LV: LV size is normal. There [...] of 5 mmHg. MEASUREMENTS: 2D Parasternal [place] LVOT 1.7 cm LA Ds 3.3 cm [...] AM Judith Carrillo M.D. Performing Organization Address City/State/[facility]code Phone Number [facility] [address] [place] [address] after 04/15/2018 Advance Directives Patient has advance care planning documents on file. For more information, please contact:Torey Heard[address] [place] [address]
--- OUTSIDE RECORDS SUMMARY | 2019-04-16 20:20 | XMS REPORT | Continuity of Care Document ---
:1940 Author Organization [employer] Information [place] Care Team Providers Name Role Phone RUNform Unavailable Unavailable Problems No Data Provided for This Section Medications No Data Provided for This Section Allergies, Adverse Reactions, Alerts No Known Medication Allergies Immunizations No Data Provided for This Section Results No Data Provided for This Section Pathology Reports No Data Provided for This Section Diagnostic Reports No Data Provided for This Section Consultation Notes No Data Provided for This Section Discharge Summaries No Data Provided for This Section History and Physicals No Data Provided for This Section Vital Signs No Data Provided for This Section Encounters Location Location Encounter Encounter Reason Attending AD[place] DC Status Source Details Type Number For Provider Date Date Visit Outpatient [id number] GLENN 10/29 Active [facility] [id number] Glenn 01/07 Active [facility] [id number] GLENN 04/15 [facility] Procedures No Data Provided for This Section Assessment and Plan No Data Provided for This Section Plan of Care No Data Provided for This Section Social History No Data Provided for This Section Family History No Data Provided for This Section Advance Directives No Data Provided for This Section Functional Status No Data Provided for This Section
--- OUTSIDE RECORDS SUMMARY | 2019-04-16 20:20 | XMS REPORT ---
:1940 Author Organization [facility] Address [address] [place] [address] [address]. [address] [place] [address] Care Team Providers Name Role Phone Unavailable [...] ABRAMS : 1940 Age/S: 78 / F [id number] Unit #: [id number] Loc: [place] [address] Phys: Geovanni Ross MD Acct: [id number] Dis Date: Status: REG [facility] PHONE #: [phone] Exam Date: 10/04/2018 0830 FAX #: Reason: STENT WITH LASER EXAMS: CPT: [id number] XR FLUOROSCOPY 0-60 MIN 95905 Fluoro Time: 57 SEC DAP (Gy m2): [...] ABRAMS : 1940 Age/S: 78 / F [address] Unit #: [id number] Loc: [place] [address] Phys: Geovanni Ross MD Acct: [id number] Dis Date: Status: REG [facility] PHONE #: [phone] Exam Date: 10/04/2018 0830 FAX #: Reason: STENT WITH LASER EXAMS: CPT: [id number] XR FLUOROSCOPY 0-60 MIN 94540 Fluoro Time: 57 SEC DAP (Gy m2): Air Kerma (mGy): <Continued> Technologist: Madyson Dooley, RT(R) Trnscb Date/Time: 10/04/2018 (1238) [email or web address] Orig Print D/T: S: 10/04/2018 (0240) PAGE 2 Signed Report BASIC METABOLIC PANEL [...] (test code=CA) 8.7 MG/DL 8.5-10.1 CBC W/AUTO [id number] 14:28:00 Test Item Value Reference Range Comments [...] NO DIFF/SCN CRITERIA - XR FLUOROSCOPY 0-60 [id number] 17:01:00 Name: VIN ABRAMS [place] : 1940 Age/S: 78 / F [id number] Unit #: [id number] Loc: [place] [address] Phys: Geovanni Ross MD Acct: [id number] Dis Date: Status : [facility] PHONE #: [phone] Exam Date: 09/26/20181714 FAX #: Reason: LEFT STENT PLACEMENT EXAMS: CPT: [id number] XR FLUOROSCOPY 0-60 MIN 35981 Fluoro Time: 13.2 DAP (Gy m2): Air [...] PAGE 1 Signed Report Name: VIN ABRAMS [facility] : [birth year] Age/S: 78 / F [id number] Unit #: [id number] Loc: [place] [address] Phys: Geovanni Ross MD Acct: [id number] Dis Date: Status: [facility] PHONE #: [phone] Exam Date: 09/26/20181714 FAX #: Reason: LEFT STENT PLACEMENT EXAMS: CPT: [id number] XR FLUOROSCOPY 0-60 MIN 30398 Fluoro Time: 13.2 DAP (Gy m2): Air Kerma (mGy): 2.41 <Continued> Technologist: Rob Nuñez, RT(R)(CT) ; ... Trnscb Date/Time: 09/28/2018 (1701) [email or web address] Orig Print D/T: S: 09/28/2018 (1705) PAGE 2 Signed Report
[2019-04-16 20:43] LABS: Absolute Lymphocytes (CBC) 2.5 K/uL (0.7-4.9); Basophils % 0.7 % (0-1.3); Hematocrit 32.9 % (36.0-45.0); Lymphocytes % 28.1 % (15.3-44.8); MPV 7.8 fL (7.6-11.3); RBC Red Blood Cell Count 4.23 M/uL (3.86-4.86)
[2019-04-16 20:46] LABS: Protime INR 0.99
[2019-04-16 21:02] LABS: ALT/SGPT 18 U/L (12-78); AST/SGOT 13 U/L (15-37); Albumin 3.3 g/dL (3.4-5.0); Alkaline Phosphatase 68 U/L (45-117); BUN Blood Urea Nitrogen 27 mg/dL (7-18); Bicarbonate 25 mmol/L (21-32); Bilirubin Direct 0.1 mg/dL (0-0.2); Bilirubin Total 0.3 mg/dL (0.2-1.0); Glucose Level 138 mg/dL (74-106); Magnesium 2.5 mg/dL (1.8-2.4); NT PRO-BNP 224 pg/mL (<450); Potassium 3.4 mmol/L (3.5-5.1); Protein, Total 6.8 g/dL (6.4-8.2); Sodium Level 145 mmol/L (136-145); Troponin (Emerg Dept Use Only) < 0.02 ng/mL (0.0-0.045)
[2019-04-16] MEDS ORDERED: POTASSIUM 25 MEQ EFFERV TAB ONE (21:42)
[2019-04-16] MEDS ORDERED: NA CHLORIDE 0.9% 500 ML ONE (21:42)
[2019-04-16] MEDS ORDERED: POTASSIUM CL SA 10 MEQ TAB PO ONE (21:44)
--- NOTE | 2019-04-16 22:03 | RAD REPORT ---
EXAM DESCRIPTION: Raymundo Single View04/16/2019 8:46 pm CLINICAL HISTORY: Shortness of breath COMPARISON: December 2018 FINDINGS: The lungs appear clear of acute infiltrate. The heart is mildly enlarged. Pacemaker leads are in place. IMPRESSION: No acute abnormalities displayed
--- NOTE | 2019-04-16 22:10 | ER ---
Nurse's Notes [facility] Name: Joan Cohn Age: 79 yrs Sex: Female : 1940 Arrival Date: 04/16/2019 Time: 20:18 Bed 7 Private MD: Diagnosis: Near Syncope Presentation: 04/16 20:18 Presenting complaint: Patient states: near syncopal episode while eating dinner. Pt ss reports feeling better en route to ED other than feeling tired. Transition of care: patient was not received from another setting of care. Onset of symptoms was April 16, 2019. Risk Assessment: Do you want to hurt yourself or someone else? Patient reports no desire to harm self or others. Initial Sepsis Screen: Does the patient meet any 2 criteria? No. Patient's initial sepsis screen is negative. Does the patient have a suspected source of infection? No. Patient's initial sepsis screen is negative. Care prior to arrival: None. 20:18 Method Of Arrival: EMS: [facility] 20:18 Acuity: MIGUEL 3 ss Historical: - Allergies: 20:20 No Known Allergies; ss - Home Meds: 20:42 amlodipine 5 mg tab 1 tab once daily [Active]; aspirin 81 mg Oral chew 1 tab once daily lp1 [Active]; atorvastatin 40 mg Oral tab [Active]; biotin Oral daily [Active]; calcium carbonate 600 mg (1,500 mg) Oral tab [Active]; clopidogrel 75 mg Oral tab 1 tab once daily [Active]; CoQ-10 Oral daily [Active]; cranberry 500 mg Oral cap daily [Active]; Krill Oil (Eminence 3 and 6) Oral daily [Active]; levothyroxine oral [Active]; lisinopril 20 mg Oral tab once daily [Active]; Namzaric 28-10 mg Oral CSpX 1 cap once daily [Active]; pantoprazole 40 mg Oral TbEC 1 tab once daily [Active]; pramipexole 1.5 mg Oral tab 1 tab daily [Active]; sertraline 50 mg Oral tab 1 tab once daily [Active]; - PMHx: 20:20 sick sinus syndrome; GERD; Hypertension; Hypothyroidism; Dementia; scoliosis; Anxiety; ss - PSHx: 20:20 PACEMAKER; Hysterectomy; Thyroidectomy; ss - Immunization history:: Adult Immunizations up to date. - Social history:: Smoking status: Patient/guardian denies using tobacco. - Ebola Screening: : Patient denies exposure to infectious person Patient denies travel to an Ebola-affected area in the 21 days before illness onset. Screenin:25 Abuse screen: Denies threats or abuse. Denies injuries from another. Nutritional lp1 screening: No deficits noted. Tuberculosis screening: No symptoms or risk factors identified. Fall Risk Total Mederos Fall Scale indicates High Risk Score (45 or more points). Fall prevention measures have been instituted. Side Rails Up X 2 Family Present and informed to notify staff if the need to leave the bedside As available patient and family educated on Fall Prevention Program and Strategies. Assessment: 20:24 General: Appears in no apparent distress. Behavior is cooperative, appropriate for age. lp1 Pain: Denies pain. Neuro: Level of Consciousness is awake, alert, obeys commands, Oriented to person, place, time, situation, Reports a syncopal episode states feeling weakness all of a sudden. Cardiovascular: Reports lightheadedness, Denies chest pain, Patient's skin is warm and dry. Rhythm is atrial pacer. Respiratory: Respiratory effort is even, unlabored, Breath sounds are clear bilaterally. GI: No signs and/or symptoms were reported involving the gastrointestinal system. : No signs and/or symptoms were reported regarding the genitourinary system. EENT: No signs and/or symptoms were reported regarding the EENT system. Derm: Skin is pink, warm \T\ dry. Musculoskeletal: Circulation, motion, and sensation intact. 20:30 Reassessment: Pacemaker interrogated with [employer] device. lp1 21:30 Reassessment: Patient appears in no apparent distress at this time. Patient and/or lp1 family updated on plan of care and expected duration. Pain level reassessed. Patient is alert, oriented x 3, equal unlabored respirations, skin warm/dry/pink. Patient states feeling better. Vital Signs: 20:20 BP 139 / 76; Pulse 95; Resp 17; Pulse Ox 100% on R/A; Weight 58.97 kg; Height 5 ft. 4 ss in. (162.56 cm); Pain 0/10; 20:26 BP 140 / 64; Pulse 70; Resp 17; Temp 98.3(O); Pulse Ox 97% on R/A; lp1 21:00 BP 125 / 59; Pulse 75; Resp 20; Pulse Ox 97% on R/A; lp1 21:22 Pulse 100; Resp 20; Pulse Ox 96% on R/A; lp1 22:05 BP 143 / 70; Pulse 80; Resp 20; Pulse Ox 98% on R/A; Pain 0/10; lp1 20:20 Body Mass Index 22.31 (58.97 kg, 162.56 cm) ss 21:22 No apparent distress noted; patient resting, comfortably lp1 ED Course: 20:18 Patient arrived in ED. ss 20:20 Triage completed. ss 20:20 Arm band placed on right wrist. ss 20:23 Alejandra Kellogg, TREY is Primary Nurse. lp1 20:25 Patient has correct armband on for positive identification. Placed in gown. Bed in low lp1 position. Call light in reach. brooch and bracelet maker on. Pulse ox on. NIBP on. 20:26 Jonathan Fuchs PA is PHCP. jr8 20:26 Krishna Sanches MD is Attending Physician. jr8 20:35 Maintain EMS IV. Dressing intact. Good blood return noted. Site clean \T\ dry. Gauge \T\ lp 1 site: 20g to R AC. 20:44 XRAY Chest (1 view) In Process Unspecified. EDMS 22:05 No provider procedures requiring assistance completed. lp1 22:26 IV discontinued, No redness/swelling at site. Pressure dressing applied. lp1 Administered Medications: 21:46 Drug: NS 0.9% 500 ml Route: IV; Rate: bolus; Site: right antecubital; lp1 22:20 Follow up: IV Status: Completed infusion; IV Intake: 500ml lp1 21:46 Drug: Potassium Chloride 20 mEq Route: PO; lp1 22:27 Follow up: Response: No adverse reaction lp1 Intake: 22:20 IV: 500ml; Total: 500ml. lp1 Outcome: 22:09 Discharge ordered by . jr8 22:26 Discharged to home via wheelchair, with family. lp1 22:26 Condition: good 22:26 Discharge instructions given to patient, family, Instructed on discharge instructions, follow up and referral plans. Demonstrated understanding of instructions, follow-up care. 22:26 Patient left the ED. lp1 Signatures: Dispatcher [employer] EDMS Hansa Raza RN RN Alejandra Kellogg RN RN lp1 Jonathan Fuchs PA PA jr8 Corrections: (The following items were deleted from the chart) 20:39 20:26 BP 140 / 64; Pulse 70bpm; Resp 17bpm; Pulse Ox 97% RA; lp1 lp1
--- NOTE | 2019-04-16 22:10 | EDPHYS ---
Physician Documentation [facility] Name: Joan Cohn Age: 79 yrs Sex: Female : 1940 Arrival Date: 04/16/2019 Time: 20:18 Bed 7 Private MD: ED Physician Krishna Sanches HPI: 04/16 20:49 This 79 yrs old Female presents to ER via EMS with complaints of Near Syncope.jr8 20:49 The patient has experienced near-syncope, almost passed out, felt faint. Onset: The jr8 symptoms/episode began/occurred acutely, today. Duration: This was a single episode. Context: the episode(s) was witnessed, by EMS personnel, by family, occurred at home, occurred while the patient was at rest, sitting. Associated injury: The patient did not suffer any apparent associated injury. Associated signs and symptoms: The patient has no apparent associated signs or symptoms. Current symptoms: Currently, the patient is not experiencing any symptoms, the patient feels back to baseline, no decreased level of consciousness, no confusion, no dysphasia, no headache, no paralysis, no visual changes. The patient has experienced a previous episode. The patient has not recently seen a physician. Patient with pacemaker and history of sick sinus syndrome. Stated that while talking at the dinner table, started to feel weak and then like she was going to pass out. Patient was brought to recliner and laid back. EMS stated that she was cool, pale, clammy on scene. Noticed that she was not paced at the time bur rate was 60. Pacemaker kicked in and then patient felt better. BP stable on scene . Historical: - Allergies: 20:20 No Known Allergies; ss - Home Meds: 20:42 amlodipine 5 mg tab 1 tab once daily [Active]; aspirin 81 mg Oral chew 1 tab once daily lp1 [Active]; atorvastatin 40 mg Oral tab [Active]; biotin Oral daily [Active]; calcium carbonate 600 mg (1,500 mg) Oral tab [Active]; clopidogrel 75 mg Oral tab 1 tab once daily [Active]; CoQ-10 Oral daily [Active]; cranberry 500 mg Oral cap daily [Active]; Krill Oil ([place] 3 and 6) Oral daily [Active]; levothyroxine oral [Active]; lisinopril 20 mg Oral tab once daily [Active]; Namzaric 28-10 mg Oral CSpX 1 cap once daily [Active]; pantoprazole 40 mg Oral TbEC 1 tab once daily [Active]; pramipexole 1.5 mg Oral tab 1 tab daily [Active]; sertraline 50 mg Oral tab 1 tab once daily [Active]; - PMHx: 20:20 sick sinus syndrome; GERD; Hypertension; Hypothyroidism; Dementia; scoliosis; Anxiety; ss - PSHx: 20:20 PACEMAKER; Hysterectomy; Thyroidectomy; ss - Immunization history:: Adult Immunizations up to date. - Social history:: Smoking status: Patient/guardian denies using tobacco. - Ebola Screening: : Patient denies exposure to infectious person Patient denies travel to an Ebola-affected area in the 21 days before illness onset. ROS: 20:49 Eyes: Negative for injury, pain, redness, and discharge, ENT: Negative for injury, jr8 pain, and discharge, Neck: Negative for injury, pain, and swelling, Cardiovascular: Negative for chest pain, palpitations, and edema, Respiratory: Negative for shortness of breath, cough, wheezing, and pleuritic chest pain, Abdomen/GI: Negative for abdominal pain, nausea, vomiting, diarrhea, and constipation, Back: Negative for injury and pain, MS/Extremity: Negative for injury and deformity, Skin: Negative for injury, rash, and discoloration. 20:49 Neuro: Positive for dizziness, near syncope. Exam: 20:49 Eyes: Pupils equal round and reactive to light, extra-ocular motions intact. Lids and jr8 lashes normal. Conjunctiva and sclera are non-icteric and not injected. Cornea within normal limits. Periorbital areas with no swelling, redness, or edema. ENT: Nares patent. No nasal discharge, no septal abnormalities noted. Tympanic membranes are normal and external auditory canals are clear. Oropharynx with no redness, swelling, or masses, exudates, or evidence of obstruction, uvula midline. Mucous membranes moist. Neck: Trachea midline, no thyromegaly or masses palpated, and no cervical lymphadenopathy. Supple, full range of motion without nuchal rigidity, or vertebral point tenderness. No Meningismus. Cardiovascular: Regular rate and rhythm with a normal S1 and S2. No gallops, murmurs, or rubs. Normal PMI, no JVD. No pulse deficits. Respiratory: Lungs have equal breath sounds bilaterally, clear to auscultation and percussion. No rales, rhonchi or wheezes noted. No increased work of breathing, no retractions or nasal flaring. Abdomen/GI: Soft, non-tender, with normal bowel sounds. No distension or tympany. No guarding or rebound. No evidence of tenderness throughout. Back: No spinal tenderness. No costovertebral tenderness. Full range of motion. Skin: Warm, dry with normal turgor. Normal color with no rashes, no lesions, and no evidence of cellulitis. MS/ Extremity: Pulses equal, no cyanosis. Neurovascular intact. Full, normal range of motion. Neuro: Awake and alert, GCS 15, oriented to person, place, time, and situation. Cranial nerves II-XII grossly intact. Motor strength 5/5 in all extremities. Sensory grossly intact. Cerebellar exam normal. Normal gait. Vital Signs: 20:20 BP 139 / 76; Pulse 95; Resp 17; Pulse Ox 100% on R/A; Weight 58.97 kg; Height 5 ft. 4 ss in. (162.56 cm); Pain 0/10; 20:26 BP 140 / 64; Pulse 70; Resp 17; Temp 98.3(O); Pulse Ox 97% on R/A; lp1 21:00 BP 125 / 59; Pulse 75; Resp 20; Pulse Ox 97% on R/A; lp1 21:22 Pulse 100; Resp 20; Pulse Ox 96% on R/A; lp1 22:05 BP 143 / 70; Pulse 80; Resp 20; Pulse Ox 98% on R/A; Pain 0/10; lp1 20:20 Body Mass Index 22.31 (58.97 kg, 162.56 cm) ss 21:22 No apparent distress noted; patient resting, comfortably lp1 MDM: 20:26 Patient medically screened. jr8 22:07 Data reviewed: vital signs, nurses notes, lab test result(s), EKG, radiologic studies, jr8 plain films. Data interpreted: Pulse oximetry: on room air is 98 %. Interpretation: normal. Counseling: I had a detailed discussion with the patient and/or guardian regarding: the historical points, exam findings, and any diagnostic results supporting the discharge/admit diagnosis, lab results, radiology results, the need for outpatient follow up, a drawer waxer, a family practitioner, to return to the emergency department if symptoms worsen or persist or if there are any questions or concerns that arise at home. Response to treatment: the patient's symptoms have resolved after treatment, patient is well hydrated. ED course: Pacemaker interrogation unremarkable. No other acute lab abnormalities, ECG abnormalities, or imaging problems to suggest what happened tonight. Discussed with family that most plausible conclusion was transient drop in blood pressure. Patient has had this once before and Cardiology and EM could not find any acute problem. Patient recently seen by cardiology as well with normal exam and Pacemaker function. Will d/c home to f/u as needed. To rest next couple of days. If worse to come back. Family and patient good with this plan . 04/16 20:26 Order name: Basic Metabolic Panel 04/16 20:26 Order name: CBC with Diff; Complete Time: 20:51 04/16 20:26 Order name: LFT's; Complete Time: 21:04/16 20:26 Order name: Magnesium; Complete Time: 21:04/16 20:26 Order name: NT PRO-BNP; Complete Time: 21:04/16 20:26 Order name: PT-INR; Complete Time: 20:51 04/16 20:26 Order name: Troponin (emerg Dept Use Only); Complete Time: 21:04/16 20:26 Order name: XRAY Chest (1 view); Complete Time: 22:06 04/16 20:26 Order name: EKG; Complete Time: 20:27 04/16 20:26 Order name: Cardiac monitoring; Complete Time: 20:42 04/16 20:26 Order name: EKG - Nurse/Tech; Complete Time: 20:42 04/16 20:26 Order name: Basic Metabolic Panel; Complete Time: 21:06 EDNY 04/16 20:26 Order name: IV Saline Lock; Complete Time: 20:42 04/16 20:26 Order name: Labs collected and sent; Complete Time: 20:42 jr04/16 20:26 Order name: O2 Per Protocol; Complete Time: 20:42 04/16 20:26 Order name: O2 Sat Monitoring; Complete Time: 20:42 Administered Medications: 21:46 Drug: NS 0.9% 500 ml Route: IV; Rate: bolus; Site: right antecubital; lp1 22:20 Follow up: IV Status: Completed infusion; IV Intake: 500ml lp1 21:46 Drug: Potassium Chloride 20 mEq Route: PO; lp1 22:27 Follow up: Response: No adverse reaction lp1 Disposition: 04/17 02:23 Co-signature as Attending Physician, Krishna Sanches MD. rn Disposition: 04/16/19 22:09 Discharged to Home. Impression: Near Syncope. - Condition is Stable. - Discharge Instructions: Near-Syncope. - Medication Reconciliation Form, Thank You Letter, Antibiotic Education, Prescription Opioid Use form. - Follow up: Private Physician; When: As needed; Reason: Recheck today's complaints, Continuance of care, Re-evaluation by your physician. - Problem is new. - Symptoms have improved. Signatures: Dispatcher [employer] EDMS Krishna Sanches MD MD rn Smirch, Shelby, RN RN ss Pena, Laura, RN RN lp1 Jonathan Fuchs PA PA jr8 Corrections: (The following items were deleted from the chart) 04/16 22:26 22:09 04/16/2019 22:09 Discharged to Home. Impression: Near Syncope. Condition is lp1 Stable. Forms are Medication Reconciliation Form, Thank You Letter, Antibiotic Education, Prescription Opioid Use. Follow up: Private Physician; When: As needed; Reason: Recheck today's complaints, Continuance of care, Re-evaluation by your physician. Problem is new. Symptoms have improved. jr8
[2019-04-16 22:32] VITALS: TEMP 98.3
[2019-04-16 22:36] VITALS: BP 143/70; O2SAT 98
--- NOTE | 2019-04-17 16:29 | EKG ---
Test Date: 2019-04-16 Test Time: 20:17:41 Planner Intern: KOREY MEASUREMENT RESULTS: Intervals: Rate: 73 [place]: 136 QRSD: 88 QT: 388 QTc: 427 [place]: P: 0 NY: 136 QRS: 21 T: 18 INTERPRETIVE STATEMENTS: Electronic atrial pacemaker Nonspecific ST abnormality Abnormal ECG Compared to ECG 12/11/2018 20:43:11 ST (T wave) deviation now present Ventricular-paced complex(es) or rhythm no longer present Electronically Signed On 04-17-19 16:26:24 CDT by Johnny Banerjee
== END 2019-04-16 22:26 | disposition home or self-care (01) ==
LOC: ER 20:17
DX: R55 Syncope and collapse (principal); K21.9 Gastro-esophageal reflux disease without esophagitis; I10 Essential (primary) hypertension; E03.9 Hypothyroidism, unspecified; F03.90 Unspecified dementia, unspecified severity, without behavioral disturbance, psychotic disturbance, mood disturbance, and anxiety; Z79.82 Long term (current) use of aspirin
CPT/HCPCS: 36415; 71045; 80048; 80076; 83735; 83880; 84484; 85025; 85610; 93005; 96360; 99284

== ENCOUNTER 2019-08-07 06:54 | Emergency (ER) | payer OTHER ==
--- OUTSIDE RECORDS SUMMARY | 2019-08-07 06:57 | XMS REPORT ---
:1940 Author Organization [facility] Address [address] [place] [address] Care Team Providers Name Role Phone Unavailable Unavailable Unavailable Payers Payer Name Policy Type Policy Number Effective Date Expiration Date Problems This patient has no known problems. Allergies, Adverse Reactions, Alerts Allergy Allergy Status Severity Reaction(s) Onset Inactive Treating Comments Name Type Date Date Clinician No Known DA Active U 2016-04 Allergies 00:00:0 0 Medications This patient has no known medications. Results Test Description Test Time Test Comments Text Results Atomic Results Result Comments - XR FLUOROSCOPY 0-60 MIN 2018-10-04 12:38:00 Name: VIN ABRAMS [place] : 1940 Age/S: 78 / F [id number] Unit #: [id number] Loc: [place] [address] Phys: Geovanni Ross MD Acct: [id number] Dis Date: Status: [facility] PHONE #: [phone] Exam Date: 10/04/2018 0830 FAX #: Reason: STENT WITH LASER EXAMS: CPT: [id number] XR FLUOROSCOPY 0-60 MIN 29275 Fluoro Time: 57 SEC DAP (Gy m2): [...] signed by: Cee Fagan M.D. CC: Geovanni Rsos MD PAGE 1 Signed Report Name: VIN ABRAMS : 1940 Age/S: 78 / F [id number] Unit #: [id number] Loc: [place] [address] Phys: Geovanni Ross MD Acct: [id number] Dis Date: Status: REG [facility] PHONE #: [phone] Exam Date: 10/04/2018 08 FAX #: Reason: STENT WITH LASER EXAMS: CPT: [id number] XR FLUOROSCOPY 0-60 MIN 79883 Fluoro Time: 57 SEC DAP (Gy m2): Air Kerma (mGy): <Continued> Technologist: Madyson Dooley, RT(R) Trnscb Date/Time: 10/04/2018 (1238) [email or web address] Orig Print D/T: S: 10/04/2018 (0004) PAGE 2 Signed Report BASIC METABOLIC PANEL [...] (test code=CA) 8.7 MG/DL 8.5-10.1 CBC W/AUTO [id number] 14:28:00 Test Item Value Reference Range Comments [...] NO DIFF/SCN CRITERIA - XR FLUOROSCOPY 0-60 [id number] 17:01:00 Name: VIN ABRAMS [place] : 1940 Age/S: 78 / F [id number] Unit #: [id number] Loc: [place] [address] Phys: Geovanni Ross MD Acct: [id number] Dis Date: Status : [facility] PHONE #: [phone] Exam Date: 09/26/20181714 FAX #: Reason: LEFT STENT PLACEMENT EXAMS: CPT: [id number] XR FLUOROSCOPY 0-60 MIN 08822 Fluoro Time: 13.2 DAP (Gy m2): Air [...] PAGE 1 Signed Report Name: VIN ABRAMS [facility] : [birth year] Age/S: 78 / F [id number] Unit #: [id number] Loc: [place] [address] Phys: Geovanni Ross MD Acct: [id number] Dis Date: Status: [facility] PHONE #: [phone] Exam Date: 09/26/20180 FAX #: Reason: LEFT STENT PLACEMENT EXAMS: CPT: [id number] XR FLUOROSCOPY 0-60 MIN 80538 Fluoro Time: 13.2 DAP (Gy m2): Air Kerma (mGy): 2.41 <Continued> Technologist: Rob Nuñez, RT(R)(CT) ; ... Trnscb Date/Time: 09/28/2018 (1701) [email or web address] Orig Print D/T: S: 09/28/2018 (1705) PAGE 2 Signed Report
[2019-08-07 07:34] LABS: Absolute Lymphocytes (CBC) 1.9 K/uL (0.7-4.9); Basophils % 0.6 % (0-1.3); Hematocrit 34.5 % (36.0-45.0); Lymphocytes % 19.8 % (15.3-44.8); MPV 7.8 fL (7.6-11.3); RBC Red Blood Cell Count 4.49 M/uL (3.86-4.86)
[2019-08-07] MEDS ORDERED: ONDANSETRON 4 MG/2 ML VIAL ONE (07:40)
[2019-08-07] MEDS ORDERED: KETOROLAC 30 MG/ML INJ ONE (07:40)
--- NOTE | 2019-08-07 07:54 | RAD REPORT ---
EXAM DESCRIPTION: CT - Stone Protocol - 08/07/2019 7:41 am CLINICAL HISTORY: Abdominal pain. Lower abdominal pain. Urinary frequency COMPARISON: 2008 TECHNIQUE: Computed axial tomography of the abdomen pelvis was obtained without oral or IV contrast. Lack of IV and oral contrast limits evaluation of solid organs, bowel, and vessels. Coronal reformat emiliana images were obtained and reviewed. All CT scans are performed using dose optimization technique as appropriate and may include automated exposure control or mA/KV adjustment according to patient size. FINDINGS: Small, multiple bilateral renal calculi. Mild to moderate right hydronephrosis. The right ureter is dilated. A 4 millimeter calculus is present within the distal right ureter 1 millimeter fro m the UVJ Small to moderate hiatal hernia. Scoliosis involves the spine. Mild anterior subluxation L5 on S1 wit h spondylolysis The liver, spleen, pancreas and adrenals appear grossly normal There is no evidence of diverticulitis. The appendix appears normal A neurostimulator device implant IMPRESSION: A 4 millimeter calculus within the distal right ureter resulting in mild to moderate rig ht hydronephrosis
[2019-08-07 07:55] LABS: Albumin 3.3 g/dL (3.4-5.0); Bilirubin Direct 0.1 mg/dL (0-0.2); Bilirubin Total 0.4 mg/dL (0.2-1.0); Potassium 4.4 mmol/L (3.5-5.1)
[2019-08-07 07:56] LABS: Urine Bacteria 20-50 /HPF (<20); Urine Culture Reflex Order NOT NEEDED; Urine Mucus 2+ /HPF (NONE SEEN)
[2019-08-07 07:59] LABS: Calcium Oxalate Crystals- Ur FEW (NONE SEEN)
--- NOTE | 2019-08-07 08:03 | ER ---
Nurse's Notes [facility] Name: Joan Cohn Age: 79 yrs Sex: Female : 1940 Arrival Date: 08/07/2019 Time: 06:58 Bed 13 Private MD: Diagnosis: Hydronephrosis with renal and ureteral calculous obstruction Presentation: 08/07 07:01 Presenting complaint: Patient states: Woke up this morning with abdominal pain that rb1 radiates to the right lower back. Transition of care: patient was not received from another setting of care. Onset of symptoms was August 07, 2019. Risk Assessment: Do you want to hurt yourself or someone else? Patient reports no desire to harm self or others. Initial Sepsis Screen: Does the patient meet any 2 criteria? No. Patient's initial sepsis screen is negative. Does the patient have a suspected source of infection? No. Patient's initial sepsis screen is negative. Care prior to arrival: Medication(s) given: [place] 10/325 mg x 2 tabs PO \T\ 0245 this morning. 07:01 Method Of Arrival: Ambulatory rb1 07:01 Acuity: MIGUEL 3 rb1 Triage Assessment: 07:00 General: Appears uncomfortable, Behavior is calm, cooperative, Denies fever. Pain: rb1 Complains of pain in suprapubic area and right lower quadrant Pain radiates to right flank Pain currently is 10 out of 10 on a pain scale. Pain began This morning. Neuro: Level of Consciousness is awake, alert, obeys commands, Oriented to person, place, time, situation. Cardiovascular: Capillary refill < 3 seconds is brisk in bilateral fingers. Respiratory: Airway is patent Respiratory effort is even, unlabored, Respiratory pattern is regular, symmetrical. GI: No signs and/or symptoms were reported involving the gastrointestinal system. : No signs and/or symptoms were reported regarding the genitourinary system. Derm: Skin is pink, warm \T\ dry. Historical: - Allergies: 07:00 No Known Allergies; rb1 - Home Meds: 07:00 aspirin 81 mg Oral chew 1 tab once daily [Active]; atorvastatin 40 mg Oral tab rb1 [Active]; biotin 5000 mcg Oral 1 tabs daily [Active]; calcium carbonate 600 mg (1,500 mg) Oral tab [Active]; CoQ-10 Oral daily [Active]; levothyroxine oral [Active]; lisinopril 20 mg Oral tab once daily [Active]; sertraline 50 mg Oral tab 1 tab once daily [Active]; pantoprazole 40 mg Oral TbEC 1 tab once daily [Active]; Krill Oil ([place] 3 and 6) Oral daily [Active]; pramipexole 1.5 mg Oral tab 1 tab daily [Active]; donepezil 10 mg oral tab 1 tab once daily [Active]; carvedilol 3.125 mg oral tab 1 tab daily [Active]; memantine 10 mg oral tab 1 tab 2 times per day [Active]; - PMHx: 07:00 Anxiety; Dementia; GERD; Hypertension; Hypothyroidism; scoliosis; sick sinus syndrome; rb1 - PSHx: 07:00 PACEMAKER; Hysterectomy; Thyroidectomy; Pain Stimulator; rb1 - Immunization history:: Adult Immunizations up to date. - Ebola Screening: : Patient negative for fever greater than or equal to 101.5 degrees Fahrenheit, and additional compatible Ebola Virus Disease symptoms. - Social history:: Smoking status: Patient/guardian denies using tobacco. Screenin:01 Abuse screen: Denies threats or abuse. Nutritional screening: No deficits noted. rb1 Tuberculosis screening: No symptoms or risk factors identified. Fall Risk No fall in past 12 months (0 pts). Secondary diagnosis (15 points) impaired mobility, No IV (0 pts). Ambulatory Aid- Crutches/Cane/Walker (15 pts). Gait- Impaired (20 pts.). Mental Status- Oriented to own ability (0 pts). Total Mederos Fall Scale indicates High Risk Score (45 or more points). Fall prevention measures have been instituted. Side Rails Up X 2 Placed Close to Nursing Station 1:1 Attendant Assigned Frequent Obs/Assessments Occuring Family Present and informed to notify staff if the need to leave the bedside As available patient and family educated on Fall Prevention Program and Strategies. Assessment: 07:01 GI: Bowel sounds present X 4 quads. Abd is soft Abdomen is tender to palpation. rb1 Vital Signs: 07:00 BP 159 / 84; Pulse 70; Resp 16; Temp 98.1(O); Pulse Ox 100% on R/A; Weight 58.97 kg rb1 (R); Height 5 ft. 5 in. (165.10 cm) (R); Pain 10/10; 08:00 BP 102 / 55; Pulse 68; Resp 17; Pulse Ox 95% on R/A; rb1 07:00 Body Mass Index 21.63 (58.97 kg, 165.10 cm) rb1 ED Course: 06:58 Patient arrived in ED. cl3 07:00 Arm band placed on right wrist. rb1 07:01 Patient has correct armband on for positive identification. Placed in gown. Bed in low rb1 position. Call light in reach. Side rails up X 1. Pulse ox on. NIBP on. Warm blanket given. 07:04 Katelin Lanza, RN is Primary Nurse. rb1 07:12 Jonathan Fuchs PA is PHCP. jr8 07:12 Carson Kinsey MD is Attending Physician. jr8 07:25 Inserted saline lock: 22 gauge in right antecubital area, using aseptic technique. rb1 Blood collected. 07:41 CT completed. Patient tolerated procedure well. Patient moved back from CT. mw3 07:42 CT Stone Protocol In Process Unspecified. EDMS 07:51 Triage completed. rb1 08:03 Hernán Liriano MD is Referral Physician. jr8 08:28 No provider procedures requiring assistance completed. IV discontinued, intact, rb1 bleeding controlled, No redness/swelling at site. Pressure dressing applied. Administered Medications: 07:50 Drug: TORadol - Ketorolac 15 mg Route: IVP; Site: right antecubital; rb1 08:05 Follow up: Response: No adverse reaction; Pain is decreased rb1 07:50 Drug: Zofran 4 mg Route: IVP; Site: right antecubital; rb1 08:05 Follow up: Response: No adverse reaction rb1 08:24 Drug: Rocephin 1 grams Route: IV; Rate: calculated rate; Site: right antecubital; rb1 08:25 Follow up: Response: Medication administered at discharge.; IV Status: Completed rb1 infusion 08:24 Drug: Flomax 0.4 mg Route: PO; rb1 08:25 Follow up: Response: Medication administered at discharge. rb1 Outcome: 08:03 Discharge ordered by . jr8 08:28 Patient left the ED. rb1 08:28 Discharged to home via wheelchair, with family. rb1 08:28 Condition: stable 08:28 Discharge instructions given to patient, Instructed on discharge instructions, follow up and referral plans. medication usage, Demonstrated understanding of instructions, follow-up care, medications, Prescriptions given X 3. Signatures: Dispatcher [employer] EDMS Jonathan Fuchs PA PA jr8 Katelin Lanza RN RN rb1 Kavya Sweeney mw3 Jerad Nicole cl3 Corrections: (The following items were deleted from the chart) 08:30 08:22 Patient left the ED. rb1 rb1
--- NOTE | 2019-08-07 08:04 | EDPHYS ---
Physician Documentation [facility] Name: Joan Cohn Age: 79 yrs Sex: Female : 1940 Arrival Date: 08/07/2019 Time: 06:58 Bed 13 Private MD: ED Physician Carson Kinsey HPI: 08/07 08:01 This 79 yrs old Female presents to ER via Ambulatory with complaints of jr8 Abdominal Pain. 08:01 The patient presents with abdominal pain. Onset: The symptoms/episode began/occurred jr8 acutely, this morning. The symptoms radiate to right back. Associated signs and symptoms: none. The symptoms are described as sharp. Modifying factors: The symptoms are alleviated by nothing, the symptoms are aggravated by nothing. Severity of pain: At its worst the pain was moderate in the emergency department the pain is unchanged. The patient has experienced a previous episode. The patient has not recently seen a physician. History of renal stones in past. Thinks she has another one. RLQ abdominal pain with radiation to flank and back on right side. Historical: - Allergies: 07:00 No Known Allergies; rb1 - Home Meds: 07:00 aspirin 81 mg Oral chew 1 tab once daily [Active]; atorvastatin 40 mg Oral tab rb1 [Active]; biotin 5000 mcg Oral 1 tabs daily [Active]; calcium carbonate 600 mg (1,500 mg) Oral tab [Active]; CoQ-10 Oral daily [Active]; levothyroxine oral [Active]; lisinopril 20 mg Oral tab once daily [Active]; sertraline 50 mg Oral tab 1 tab once daily [Active]; pantoprazole 40 mg Oral TbEC 1 tab once daily [Active]; Krill Oil ([place] 3 and 6) Oral daily [Active]; pramipexole 1.5 mg Oral tab 1 tab daily [Active]; donepezil 10 mg oral tab 1 tab once daily [Active]; carvedilol 3.125 mg oral tab 1 tab daily [Active]; memantine 10 mg oral tab 1 tab 2 times per day [Active]; - PMHx: 07:00 Anxiety; Dementia; GERD; Hypertension; Hypothyroidism; scoliosis; sick sinus syndrome; rb1 - PSHx: 07:00 PACEMAKER; Hysterectomy; Thyroidectomy; Pain Stimulator; rb1 - Immunization history:: Adult Immunizations up to date. - Ebola Screening: : Patient negative for fever greater than or equal to 101.5 degrees Fahrenheit, and additional compatible Ebola Virus Disease symptoms. - Social history:: Smoking status: Patient/guardian denies using tobacco. ROS: 08:01 Eyes: Negative for injury, pain, redness, and discharge, ENT: Negative for injury, jr8 pain, and discharge, Neck: Negative for injury, pain, and swelling, Cardiovascular: Negative for chest pain, palpitations, and edema, Respiratory: Negative for shortness of breath, cough, wheezing, and pleuritic chest pain, MS/Extremity: Negative for injury and deformity, Skin: Negative for injury, rash, and discoloration, Neuro: Negative for headache, weakness, numbness, tingling, and seizure. 08:01 Abdomen/GI: Positive for abdominal pain, Negative for nausea, vomiting, and diarrhea, abdominal cramps, abdominal distension, anorexia, dysphagia, hematemesis, black/tarry stool, rectal pain, rectal bleeding, bowel incontinence, flatulence. 08:01 Back: Positive for pain at rest, flank pain, of the right flank. Exam: 08:01 Eyes: Pupils equal round and reactive to light, extra-ocular motions intact. Lids and jr8 lashes normal. Conjunctiva and sclera are non-icteric and not injected. Cornea within normal limits. Periorbital areas with no swelling, redness, or edema. ENT: Nares patent. No nasal discharge, no septal abnormalities noted. Tympanic membranes are normal and external auditory canals are clear. Oropharynx with no redness, swelling, or masses, exudates, or evidence of obstruction, uvula midline. Mucous membranes moist. Neck: Trachea midline, no thyromegaly or masses palpated, and no cervical lymphadenopathy. Supple, full range of motion without nuchal rigidity, or vertebral point tenderness. No Meningismus. Cardiovascular: Regular rate and rhythm with a normal S1 and S2. No gallops, murmurs, or rubs. Normal PMI, no JVD. No pulse deficits. Respiratory: Lungs have equal breath sounds bilaterally, clear to auscultation and percussion. No rales, rhonchi or wheezes noted. No increased work of breathing, no retractions or nasal flaring. Skin: Warm, dry with normal turgor. Normal color with no rashes, no lesions, and no evidence of cellulitis. MS/ Extremity: Pulses equal, no cyanosis. Neurovascular intact. Full, normal range of motion. Neuro: Awake and alert, GCS 15, oriented to person, place, time, and situation. Cranial nerves II-XII grossly intact. Motor strength 5/5 in all extremities. Sensory grossly intact. Cerebellar exam normal. Normal gait. 08:01 Abdomen/GI: Inspection: abdomen appears normal, Bowel sounds: active, all quadrants, Palpation: soft, in all quadrants, mild abdominal tenderness, in the anterior aspect of right lateral abdomen and right lower quadrant, mass, is not appreciated, rebound tenderness, is not appreciated, voluntary guarding, is not appreciated, involuntary guarding, is not appreciated, no appreciated organomegaly, Indicators: McBurney's point is not tender, Mata's sign is negative, Rovsing's sign is negative, Liver: tenderness, is not appreciated. 08:01 Back: pain, that is mild, of the right flank, ROM is normal, normal spinal alignment noted, CVA tenderness, that is mild, is noted on the right, vertebral tenderness, is not appreciated. Vital Signs: 07:00 BP 159 / 84; Pulse 70; Resp 16; Temp 98.1(O); Pulse Ox 100% on R/A; Weight 58.97 kg rb1 (R); Height 5 ft. 5 in. (165.10 cm) (R); Pain 10/10; 08:00 BP 102 / 55; Pulse 68; Resp 17; Pulse Ox 95% on R/A; rb1 07:00 Body Mass Index 21.63 (58.97 kg, 165.10 cm) rb1 MDM: 07:12 Patient medically screened. jr8 08:01 Data reviewed: vital signs, nurses notes, lab test result(s), radiologic studies, CT jr8 scan. Data interpreted: Pulse oximetry: on room air is 100 %. Interpretation: normal. Counseling: I had a detailed discussion with the patient and/or guardian regarding: the historical points, exam findings, and any diagnostic results supporting the discharge/admit diagnosis, lab results, radiology results, the need for outpatient follow up, a urologist, to return to the emergency department if symptoms worsen or persist or if there are any questions or concerns that arise at home. Response to treatment: the patient's symptoms have markedly improved after treatment. 08/07 07:12 Order name: Basic Metabolic Panel; Complete Time: 08:00 08/07 07:12 Order name: CBC with Diff; Complete Time: 08:08/07 07:12 Order name: Creatinine for Radiology; Complete Time: 08:08/07 07:12 Order name: Hepatic Function; Complete Time: 08:00 08/07 07:12 Order name: Lipase; Complete Time: 08:00 08/07 07:17 Order name: Urine Microscopic Only; Complete Time: 08:08/07 07:12 Order name: IV Saline Lock; Complete Time: 07:36 08/07 07:17 Order name: CT Stone Protocol; Complete Time: 08:08/07 07:37 Order name: Urine Culture [facility] 08/07 08:07 Order name: Urine Dipstick--Ancillary (enter results) 08/07 07:12 Order name: Labs collected and sent; Complete Time: 07:36 08/07 07:17 Order name: Urine Dipstick-Ancillary (obtain specimen); Complete Time: 07:36 Administered Medications: 07:50 Drug: TORadol - Ketorolac 15 mg Route: IVP; Site: right antecubital; rb1 08:05 Follow up: Response: No adverse reaction; Pain is decreased rb1 07:50 Drug: Zofran 4 mg Route: IVP; Site: right antecubital; rb1 08:05 Follow up: Response: No adverse reaction rb1 08:24 Drug: Rocephin 1 grams Route: IV; Rate: calculated rate; Site: right antecubital; rb1 08:25 Follow up: Response: Medication administered at discharge.; IV Status: Completed rb1 infusion 08:24 Drug: Flomax 0.4 mg Route: PO; rb1 08:25 Follow up: Response: Medication administered at discharge. rb1 Disposition: 08/07/19 08:03 Discharged to Home. Impression: Hydronephrosis with renal and ureteral calculous obstruction. - Condition is Stable. - Discharge Instructions: Kidney Stones, Hydronephrosis. - Prescriptions for Zofran 4 mg Oral Tablet - take 1 tablet by ORAL route every 12 hours As needed; 20 tablet. Flomax 0.4 mg Oral Capsule, Sust. Release 24 hr - take 1 capsule by ORAL route once daily 1/2 hour following the same meal each day; 30 capsule. Cipro 500 mg Oral Tablet - take 1 tablet by ORAL route every 12 hours for 7 days; 14 tablet. - Medication Reconciliation Form, Thank You Letter, Antibiotic Education, Prescription Opioid Use form. - Follow up: Hernán Liriano MD; When: 5 - 6 days; Reason: Recheck today's complaints, Continuance of care, Re-evaluation by your physician. - Problem is new. - Symptoms have improved. Addendum: 08/11/2019 06:56 Co-signature as Attending Physician, Carson Kinsey MD I agree with the assessment and t w4 plan of care. Signatures: Dispatcher [employer] EDMS Jonathan Fuchs PA PA jr8 Katelin Lanza, RN RN rb1 Carson Kinsey MD MD tw4 Corrections: (The following items were deleted from the chart) 08/07 08:22 08:03 08/07/2019 08:03 Discharged to Home. Impression: Hydronephrosis with renal and rb1 ureteral calculous obstruction. Condition is Stable. Forms are Medication Reconciliation Form, Thank You Letter, Antibiotic Education, Prescription Opioid Use. Follow up: Hernán Liriano; When: 5 - 6 days; Reason: Recheck today's complaints, Continuance of care, Re-evaluation by your physician. Problem is new. Symptoms have improved. jr8 : 08:22 08/07/2019 08:03 Discharged to Home. Impression: Hydronephrosis with renal and rb1 ureteral calculous obstruction. Condition is Stable. Discharge Instructions: Kidney Stones, Hydronephrosis. Prescriptions for Zofran 4 mg Oral Tablet - take 1 tablet by ORAL route every 12 hours As needed; 20 tablet, Flomax 0.4 mg Oral Capsule, Sust. Release 24 hr - take 1 capsule by ORAL route once daily 1/2 hour following the same meal each day; 30 capsule, Cipro 500 mg Oral Tablet - take 1 tablet by ORAL route every 12 hours for 7 days; 14 tablet. and Forms are Medication Reconciliation Form, Thank You Letter, Antibiotic Education, Prescription Opioid Use. Follow up: Hernán Liriano; When: 5 - 6 days; Reason: Recheck today's complaints, Continuance of care, Re-evaluation by your physician. Problem is new. Symptoms have improved. rb1
[2019-08-07] MEDS ORDERED: CEFTRIAXONE/SWI 1gm 1 GM/10 ML SYR ONE (08:23)
[2019-08-07] MEDS ORDERED: TAMSULOSIN 0.4 MG SR CAP ONE (08:23)
[2019-08-07 08:35] VITALS: TEMP 98.1
[2019-08-07 08:36] VITALS: BP 102/55; O2SAT 95
[2019-08-07 10:19] LABS: Urine Blood 2+ (NEG); Urine Glucose NEGATIVE (NEG); Urine Protein NEGATIVE (NEG); Urine Specific Gravity 1.025 (1.005-1.030)
== END 2019-08-07 08:28 | disposition home or self-care (01) ==
LOC: ER 06:54
DX: N13.2 Hydronephrosis with renal and ureteral calculous obstruction (principal); I10 Essential (primary) hypertension; E03.9 Hypothyroidism, unspecified; F41.9 Anxiety disorder, unspecified; Z79.82 Long term (current) use of aspirin; Z95.0 Presence of cardiac pacemaker
CPT/HCPCS: 87088; 85025; 87086; 80048; 36415; 80076; 83690; 76377; 74176; 96375; 96374; 99284; J0696; J2405; 81003; 81015